=== PATIENT | female | born 1980 | race Hispanic/Latino ===

== ENCOUNTER 2020-07-05 19:17 | Inpatient (IN) | payer BC ==
[~2020-07-05] VITALS: Ht 152.4 cm; Wt 83.5 kg
[~2020-07-05 19:17] MED LIST: ETOMIDATE 2 MG/ML 10 ML INJ IV ONE; MIDAZOLAM HCL 2 MG/2 ML VIAL ONE; SUCCINYLCHOLINE CHLORIDE 20 MG/ML 10ML VIAL ONE; VECURONIUM BROMIDE FOR INJ 20 MG VIAL ONE; WATER STERILE 10 ML VIAL ONE
[2020-07-05] MEDS ORDERED: DEXAMETHASONE SOD PHOS 10 MG/1 ML VIAL IV ONE (19:30)
[2020-07-05 19:47] LABS: BASOPHILS % 0.1 % (0.0-1.0); HEMATOCRIT 33.1 % (34.2-44.1); HEMOGLOBIN 11.3 g/dL (12.0-16.0); LYMPHOCYTES # (AUTO) 0.5 (1.0-3.2); LYMPHOCYTES % 6.1 % (18.0-39.1); MEAN CORPUSCULAR HEMOGLOBIN 30.1 pg (28-32); MEAN CORPUSCULAR HGB CONC 34.1 g/dL (31-35); MEAN CORPUSCULAR VOLUME 88.3 fL (81-99); MONOCYTES # (AUTO) 0.2 (0.2-0.8); NEUTROPHILS % 90.2 % (38.7-80.0); PLATELET COUNT 295 x10e3/uL (140-360); RED BLOOD COUNT 3.75 x10e6/uL (3.6-5.1); RED CELL DISTRIBUTION WIDTH 11.9 % (11.7-14.4)
[2020-07-05 20:06] LABS: ALANINE AMINOTRANSFERASE 59 IU/L (0-55); ALBUMIN 2.2 g/dL (3.5-5.0); ALBUMIN/GLOBULIN RATIO 0.8 (0.8-2.0); ALKALINE PHOSPHATASE 76 IU/L (40-150); ANION GAP 14.9 mmol/L (8-16); BLOOD UREA NITROGEN 9 mg/dL (7-26); BUN/CREATININE RATIO 17 (6-25); CARBON DIOXIDE 21 mmol/L (22-29); CHLORIDE 108 mmol/L (98-107); CREATININE, SERUM 0.52 mg/dL (0.57-1.11); EST GLOMERULAR FILTRATION RATE > 60 ML/MIN (60-); GLUCOSE 160 mg/dL (74-118); SODIUM 141 mmol/L (136-145)
[2020-07-05 20:09] LABS: CALCIUM 6.7 mg/dL (8.4-10.2); POTASSIUM 2.9 mmol/L (3.5-5.1)
[2020-07-05] MEDS ORDERED: SODIUM CHLORIDE 0.9% 50ML 50 ML ONE (20:24)
[2020-07-05] MEDS ORDERED: IOPAMIDOL 370 MG/ML 200 ML INFUS..BTL INJ ONE (20:24)
[2020-07-05] MEDS ORDERED: CALCIUM GLUCONATE 10% INJ 4.65 MEQ in SODIUM CHLORIDE 0.9% 50ML 50 ML IV ONE (20:30)
[2020-07-05] MEDS ORDERED: POTASSIUM CHLORIDE 10MEQ EA PO ONE (20:30)
[2020-07-06] VITALS (13 sets, daily range): BP systolic 117–151; BP diastolic 70–94
[2020-07-06 06:40] LABS: BASOPHILS % 0.2 % (0.0-1.0); HEMATOCRIT 36.7 % (34.2-44.1); HEMOGLOBIN 12.3 g/dL (12.0-16.0); LYMPHOCYTES # (AUTO) 0.6 (1.0-3.2); LYMPHOCYTES % 6.2 % (18.0-39.1); MEAN CORPUSCULAR HGB CONC 33.5 g/dL (31-35); MEAN CORPUSCULAR VOLUME 89.5 fL (81-99); MONOCYTES # (AUTO) 0.2 (0.2-0.8); MONOCYTES % 1.8 % (4.4-11.3); NEUTROPHILS # (AUTO) 8.8 (2.1-6.9); NEUTROPHILS % 90.1 % (38.7-80.0); PLATELET COUNT 338 x10e3/uL (140-360)
[2020-07-06 06:55] LABS: ANION GAP 17.8 mmol/L (8-16); BLOOD UREA NITROGEN 12 mg/dL (7-26); BUN/CREATININE RATIO 21 (6-25); CALCIUM 8.1 mg/dL (8.4-10.2); CARBON DIOXIDE 23 mmol/L (22-29); CHLORIDE 104 mmol/L (98-107); CREATININE, SERUM 0.57 mg/dL (0.57-1.11); EST GLOMERULAR FILTRATION RATE > 60 ML/MIN (60-); GLUCOSE 131 mg/dL (74-118); POTASSIUM 3.8 mmol/L (3.5-5.1); SODIUM 141 mmol/L (136-145)
[2020-07-06] MEDS: ACETAMINOPHEN 325 MG TAB PO PRN (08:00)
[2020-07-06] MEDS: POTASSIUM CHLORIDE 20 MEQ TAB CR PO SCH (08:01)
[2020-07-06] MEDS ORDERED: BROMPHENIR-PSE118 ML PO (09:27)
[2020-07-06] MEDS ORDERED: PREDNISONE20 MG PO (09:27)
[2020-07-06] MEDS ORDERED: LOSARTAN POTAS100 MG PO (09:27)
[2020-07-06] MEDS ORDERED: AMLODIPINE BESYL5 MG PO (09:27)
[2020-07-06] MEDS ORDERED: LEVOTHYROXINE50 MCG PO (09:27)
[2020-07-06] MEDS ORDERED: CEFTRIAXONE SOD 1 GM 50 ML IV SCH (11:45)
[2020-07-06] MEDS ORDERED: ALBUTEROL SULFATE HFA 8GM INHALATION AEROSOL INH PRN (11:45)
[2020-07-06] MEDS ORDERED: SODIUM CHLORIDE 0.9% 250ML 250 ML ONE (13:22)
[2020-07-06] MEDS: CEFTRIAXONE SOD 1 GM in SODIUM CHLORIDE 0.9% 50ML 50 ML IV SCH (13:36)
[2020-07-06] MEDS: AZITHROMYCIN 500MG/NS 250 ML 250 ML IV SCH (14:19)
[2020-07-06] MEDS ORDERED: DEXMEDETOMIDINE 200MCG/NS 50ML 50 ML IV ONE (20:02)
[2020-07-06] MEDS: DEXMEDETOMIDINE HCL 200 MCG in SODIUM CHLORIDE 0.9% 50ML 48 ML IV SCH (20:06)
[2020-07-06] MEDS: ENOXAPARIN SOD INJ 40 MG/0.4 ML SYR SC SCH (20:34)
[2020-07-07] VITALS (25 sets, daily range): BP systolic 105–137; BP diastolic 50–85
[2020-07-07] MEDS: DEXMEDETOMIDINE HCL 200 MCG in SODIUM CHLORIDE 0.9% 50ML 48 ML IV SCH ×4 (02:24→21:55)
[2020-07-07] MEDS ORDERED: DEXMEDETOMIDINE 200MCG/NS 50ML 50 ML IV ONE (02:25)
[2020-07-07] MEDS: ONDANSETRON HCL INJ 2MG/ML 2ML 2 MG/ML VIAL IV PRN ×3 (03:46→21:54)
[2020-07-07 06:15] LABS: BASOPHILS % 0.3 % (0.0-1.0); EOSINOPHILS % 0.1 % (0.0-6.0); HEMATOCRIT 34.7 % (34.2-44.1); HEMOGLOBIN 11.6 g/dL (12.0-16.0); LYMPHOCYTES # (AUTO) 0.8 (1.0-3.2); LYMPHOCYTES % 7.9 % (18.0-39.1); MEAN CORPUSCULAR HEMOGLOBIN 30.1 pg (28-32); MEAN CORPUSCULAR HGB CONC 33.4 g/dL (31-35); MEAN CORPUSCULAR VOLUME 89.9 fL (81-99); MONOCYTES # (AUTO) 0.2 (0.2-0.8); MONOCYTES % 2.4 % (4.4-11.3); NEUTROPHILS # (AUTO) 8.8 (2.1-6.9); NEUTROPHILS % 87.3 % (38.7-80.0); PLATELET COUNT 351 x10e3/uL (140-360); RED BLOOD COUNT 3.86 x10e6/uL (3.6-5.1); RED CELL DISTRIBUTION WIDTH 11.9 % (11.7-14.4)
[2020-07-07 06:49] LABS: ALANINE AMINOTRANSFERASE 50 IU/L (0-55); ALBUMIN 2.2 g/dL (3.5-5.0); ALBUMIN/GLOBULIN RATIO 0.5 (0.8-2.0); ALKALINE PHOSPHATASE 91 IU/L (40-150); ANION GAP 11.8 mmol/L (8-16); BLOOD UREA NITROGEN 13 mg/dL (7-26); BUN/CREATININE RATIO 25 (6-25); CARBON DIOXIDE 25 mmol/L (22-29); CHLORIDE 102 mmol/L (98-107); CREATININE, SERUM 0.52 mg/dL (0.57-1.11); EST GLOMERULAR FILTRATION RATE > 60 ML/MIN (60-); GLUCOSE 111 mg/dL (74-118); POTASSIUM 3.8 mmol/L (3.5-5.1); SODIUM 135 mmol/L (136-145)
[2020-07-07] MEDS: DEXAMETHASONE SOD PHOS INJ 4 MG/ML VIAL IV SCH (08:32)
[2020-07-07] MEDS: ACETAMINOPHEN 325 MG TAB PO PRN ×2 (09:08→21:54)
[2020-07-07] MEDS: LEVOTHYROXINE SODIUM 50 MCG TAB PO SCH (09:30)
[2020-07-07] MEDS: POTASSIUM CHLORIDE 20 MEQ TAB CR PO SCH (09:59)
[2020-07-07] MEDS: AMLODIPINE BESYLATE 5 MG TAB PO SCH (09:59)
[2020-07-07] MEDS: ASCORBIC ACID 500 MG TAB PO SCH (09:59)
[2020-07-07] MEDS: ZINC SULFATE 220 MG CAP PO SCH (09:59)
[2020-07-07] MEDS: CEFTRIAXONE SOD 1 GM in SODIUM CHLORIDE 0.9% 50ML 50 ML IV SCH (13:15)
[2020-07-07] MEDS: AZITHROMYCIN 500MG/NS 250 ML 250 ML IV SCH (13:15)
[2020-07-07] MEDS: ENOXAPARIN SOD INJ 40 MG/0.4 ML SYR SC SCH (17:30)
[2020-07-07] MEDS: PIPERACILLIN/TAZOBAC 3.375 GM in SODIUM CHLORIDE 0.9% 50ML 50 ML IV SCH (22:18)
[2020-07-08] VITALS (24 sets, daily range): BP systolic 105–144; BP diastolic 58–88
[2020-07-08] MEDS: DEXMEDETOMIDINE HCL 200 MCG in SODIUM CHLORIDE 0.9% 50ML 48 ML IV SCH ×5 (03:33→21:25)
[2020-07-08 06:03] LABS: BASOPHILS % 0.4 % (0.0-1.0); EOSINOPHILS # (AUTO) 0.1 (0.0-0.4); EOSINOPHILS % 0.6 % (0.0-6.0); HEMATOCRIT 34.9 % (34.2-44.1); HEMOGLOBIN 11.8 g/dL (12.0-16.0); LYMPHOCYTES # (AUTO) 0.8 (1.0-3.2); LYMPHOCYTES % 7.9 % (18.0-39.1); MEAN CORPUSCULAR HEMOGLOBIN 29.9 pg (28-32); MEAN CORPUSCULAR HGB CONC 33.8 g/dL (31-35); MEAN CORPUSCULAR VOLUME 88.6 fL (81-99); MONOCYTES # (AUTO) 0.2 (0.2-0.8); MONOCYTES % 2.3 % (4.4-11.3); NEUTROPHILS # (AUTO) 8.8 (2.1-6.9); NEUTROPHILS % 86.5 % (38.7-80.0); PLATELET COUNT 326 x10e3/uL (140-360); RED BLOOD COUNT 3.94 x10e6/uL (3.6-5.1); RED CELL DISTRIBUTION WIDTH 11.8 % (11.7-14.4)
[2020-07-08] MEDS: PIPERACILLIN/TAZOBAC 3.375 GM in SODIUM CHLORIDE 0.9% 50ML 50 ML IV SCH ×3 (06:11→21:24)
[2020-07-08] MEDS: ONDANSETRON HCL INJ 2MG/ML 2ML 2 MG/ML VIAL IV PRN (06:18)
[2020-07-08] MEDS: ACETAMINOPHEN 325 MG TAB PO PRN ×2 (06:53→15:18)
[2020-07-08 07:25] LABS: ALANINE AMINOTRANSFERASE 49 IU/L (0-55); ALBUMIN 2.1 g/dL (3.5-5.0); ALBUMIN/GLOBULIN RATIO 0.5 (0.8-2.0); ALKALINE PHOSPHATASE 94 IU/L (40-150); ANION GAP 15.3 mmol/L (8-16); BLOOD UREA NITROGEN 18 mg/dL (7-26); BUN/CREATININE RATIO 32 (6-25); CALCIUM 7.9 mg/dL (8.4-10.2); CARBON DIOXIDE 23 mmol/L (22-29); CHLORIDE 104 mmol/L (98-107); CREATININE, SERUM 0.56 mg/dL (0.57-1.11); EST GLOMERULAR FILTRATION RATE > 60 ML/MIN (60-); GLUCOSE 108 mg/dL (74-118); POTASSIUM 4.3 mmol/L (3.5-5.1); SODIUM 138 mmol/L (136-145)
[2020-07-08 07:39] LABS: ALBUMIN 2.1 g/dL (3.5-5.0); BILIRUBIN,DIRECT 0.2 mg/dL (0.0-0.5)
[2020-07-08] MEDS: AMLODIPINE BESYLATE 5 MG TAB PO SCH (08:58)
[2020-07-08] MEDS: LEVOTHYROXINE SODIUM 50 MCG TAB PO SCH (08:58)
[2020-07-08] MEDS: DEXAMETHASONE SOD PHOS INJ 4 MG/ML VIAL IV SCH (08:58)
[2020-07-08] MEDS: ZINC SULFATE 220 MG CAP PO SCH (08:58)
[2020-07-08] MEDS: ASCORBIC ACID 500 MG TAB PO SCH (08:58)
[2020-07-08] MEDS: POTASSIUM CHLORIDE 20 MEQ TAB CR PO SCH (08:58)
[2020-07-08] MEDS ORDERED: IBUPROFEN 400 MG TAB PO PRN (16:30)
[2020-07-08] MEDS ORDERED: GUAIFENESIN/CODEINE 10 ML CUP PO PRN (16:30)
[2020-07-08] MEDS: ENOXAPARIN SOD INJ 40 MG/0.4 ML SYR SC SCH (18:31)
[2020-07-08] MEDS: LORAZEPAM INJ 2 MG/ML VIAL IV PRN (21:00)
[2020-07-09] VITALS (25 sets, daily range): BP systolic 112–157; BP diastolic 55–86
[2020-07-09] MEDS: LORAZEPAM INJ 2 MG/ML VIAL IV PRN (02:30)
[2020-07-09] MEDS: ACETAMINOPHEN 325 MG TAB PO PRN (03:40)
[2020-07-09] MEDS: PIPERACILLIN/TAZOBAC 3.375 GM in SODIUM CHLORIDE 0.9% 50ML 50 ML IV SCH ×3 (05:33→22:15)
[2020-07-09] MEDS: ONDANSETRON HCL INJ 2MG/ML 2ML 2 MG/ML VIAL IV PRN ×2 (07:27→23:05)
[2020-07-09] MEDS ORDERED: ACETAMINOPHEN 1000 MG/100 ML IV NR (07:30)
[2020-07-09 08:10] LABS: BASOPHILS % 0.1 % (0.0-1.0); EOSINOPHILS % 0.3 % (0.0-6.0); HEMATOCRIT 31.7 % (34.2-44.1); HEMOGLOBIN 10.7 g/dL (12.0-16.0); LYMPHOCYTES # (AUTO) 0.6 (1.0-3.2); LYMPHOCYTES % 3.8 % (18.0-39.1); MEAN CORPUSCULAR HEMOGLOBIN 29.3 pg (28-32); MEAN CORPUSCULAR HGB CONC 33.8 g/dL (31-35); MEAN CORPUSCULAR VOLUME 86.8 fL (81-99); MONOCYTES # (AUTO) 0.3 (0.2-0.8); MONOCYTES % 2.2 % (4.4-11.3); NEUTROPHILS # (AUTO) 13.7 (2.1-6.9); NEUTROPHILS % 92.3 % (38.7-80.0); PLATELET COUNT 229 x10e3/uL (140-360); RED BLOOD COUNT 3.65 x10e6/uL (3.6-5.1); RED CELL DISTRIBUTION WIDTH 11.8 % (11.7-14.4)
[2020-07-09 08:27] LABS: ALANINE AMINOTRANSFERASE 34 IU/L (0-55); ALBUMIN 1.9 g/dL (3.5-5.0); ALBUMIN/GLOBULIN RATIO 0.5 (0.8-2.0); ALKALINE PHOSPHATASE 96 IU/L (40-150); ANION GAP 16.8 mmol/L (8-16); BLOOD UREA NITROGEN 17 mg/dL (7-26); BUN/CREATININE RATIO 31 (6-25); CALCIUM 7.4 mg/dL (8.4-10.2); CARBON DIOXIDE 23 mmol/L (22-29); CHLORIDE 103 mmol/L (98-107); CREATININE, SERUM 0.55 mg/dL (0.57-1.11); EST GLOMERULAR FILTRATION RATE > 60 ML/MIN (60-); GLUCOSE 133 mg/dL (74-118); POTASSIUM 3.8 mmol/L (3.5-5.1); SODIUM 139 mmol/L (136-145)
[2020-07-09] MEDS: ASCORBIC ACID 500 MG TAB PO SCH (08:59)
[2020-07-09] MEDS: LEVOTHYROXINE SODIUM 50 MCG TAB PO SCH (08:59)
[2020-07-09] MEDS: POTASSIUM CHLORIDE 20 MEQ TAB CR PO SCH (08:59)
[2020-07-09] MEDS: AMLODIPINE BESYLATE 5 MG TAB PO SCH (08:59)
[2020-07-09] MEDS: ZINC SULFATE 220 MG CAP PO SCH (08:59)
[2020-07-09] MEDS: ASPIRIN 81 MG CHEW TAB PO SCH (09:30)
[2020-07-09 09:41] LABS: LYMPHOCYTES % (MANUAL) 4 % (19-48); MONOCYTES % (MANUAL) 3 % (3.4-9.0); NEUTROPHILS % (MANUAL) 93 % (40-74)
[2020-07-09 09:42] LABS: PLATELET ESTIMATE ADEQUATE; PLATELET MORPHOLOGY COMMENT NORMAL; RBC MORPHOLOGY COMMENT NORMAL
[2020-07-09] MEDS: DEXMEDETOMIDINE HCL 200 MCG in SODIUM CHLORIDE 0.9% 50ML 48 ML IV SCH ×3 (09:45→16:00)
[2020-07-09] MEDS: DEXAMETHASONE SOD PHOS INJ 4 MG/ML VIAL IV SCH (09:50)
[2020-07-09] MEDS ORDERED: VANCOMYCIN 1GM/NS 250 ML 250 ML IV ONE (10:15)
[2020-07-09] MEDS ORDERED: LACTATED RINGER'S 1,000 ML INJ ONE (10:15)
[2020-07-09] MEDS: ENOXAPARIN SOD INJ 40 MG/0.4 ML SYR SC SCH (17:56)
[2020-07-09] MEDS: DEXMEDETOMIDINE HCL 200 MCG in SODIUM CHLORIDE 0.9% 50ML 48 ML IV PRN ×2 (19:36→19:37)
[2020-07-09] MEDS ORDERED: ACETAMINOPHEN 1000 MG/100 ML 100 ML IV ONE (20:36)
[2020-07-09] MEDS ORDERED: ACETAMINOPHEN 1000 MG/100 ML IV STA (20:45)
[2020-07-09] MEDS ORDERED: ALTEPLASE RECOMBINANT 2 MG/2 ML VIAL IV PRN (22:30)
[2020-07-09] MEDS ORDERED: DEXAMETHASONE SOD PHOS INJ 4 MG/ML VIAL IV PRN (23:45)
[2020-07-10] VITALS (26 sets, daily range): BP systolic 99–159; BP diastolic 53–93
[2020-07-10] MEDS: LORAZEPAM INJ 2 MG/ML VIAL IV PRN (01:05)
[2020-07-10] MEDS: DEXMEDETOMIDINE HCL 200 MCG in SODIUM CHLORIDE 0.9% 50ML 48 ML IV PRN ×4 (01:14→06:15)
[2020-07-10] MEDS ORDERED: ACETAMINOPHEN 1000 MG/100 ML 100 ML IV ONE (03:27)
[2020-07-10] MEDS ORDERED: ACETAMINOPHEN 1000 MG/100 ML IV PRN (03:30)
[2020-07-10] MEDS ORDERED: SODIUM CHLORIDE 0.9% 250ML 250 ML ONE (03:44)
[2020-07-10 05:38] LABS: BASOPHILS % 0.2 % (0.0-1.0); EOSINOPHILS # (AUTO) 0.1 (0.0-0.4); EOSINOPHILS % 0.5 % (0.0-6.0); HEMATOCRIT 29.8 % (34.2-44.1); HEMOGLOBIN 9.9 g/dL (12.0-16.0); LYMPHOCYTES # (AUTO) 0.6 (1.0-3.2); LYMPHOCYTES % 3.6 % (18.0-39.1); MEAN CORPUSCULAR HEMOGLOBIN 29.4 pg (28-32); MEAN CORPUSCULAR HGB CONC 33.2 g/dL (31-35); MEAN CORPUSCULAR VOLUME 88.4 fL (81-99); MONOCYTES # (AUTO) 0.2 (0.2-0.8); MONOCYTES % 1.2 % (4.4-11.3); NEUTROPHILS # (AUTO) 15.4 (2.1-6.9); NEUTROPHILS % 92.8 % (38.7-80.0); PLATELET COUNT 208 x10e3/uL (140-360); RED BLOOD COUNT 3.37 x10e6/uL (3.6-5.1); RED CELL DISTRIBUTION WIDTH 11.9 % (11.7-14.4)
[2020-07-10] MEDS: PIPERACILLIN/TAZOBAC 3.375 GM in SODIUM CHLORIDE 0.9% 50ML 50 ML IV SCH ×3 (05:45→22:10)
[2020-07-10 06:15] LABS: ALANINE AMINOTRANSFERASE 28 IU/L (0-55); ALBUMIN 1.8 g/dL (3.5-5.0); ALBUMIN/GLOBULIN RATIO 0.5 (0.8-2.0); ALKALINE PHOSPHATASE 126 IU/L (40-150); ANION GAP 16.6 mmol/L (8-16); BLOOD UREA NITROGEN 17 mg/dL (7-26); BUN/CREATININE RATIO 31 (6-25); CALCIUM 7.5 mg/dL (8.4-10.2); CARBON DIOXIDE 24 mmol/L (22-29); CHLORIDE 104 mmol/L (98-107); CREATININE, SERUM 0.54 mg/dL (0.57-1.11); EST GLOMERULAR FILTRATION RATE > 60 ML/MIN (60-); GLUCOSE 103 mg/dL (74-118); POTASSIUM 3.6 mmol/L (3.5-5.1); SODIUM 141 mmol/L (136-145)
[2020-07-10] MEDS ORDERED: METHYLPREDNISOLONE SOD SUCC 125 MG/2ML VIAL IV ONE (06:30)
[2020-07-10] MEDS ORDERED: FENTANYL 2000MCG/NS 250 250 ML ONE (07:13)
[2020-07-10] MEDS ORDERED: MIDAZOLAM HCL 5MG/ML 10ML VIAL 100 ML IV ONE (07:13)
[2020-07-10] MEDS: ROCURONIUM BROMIDE 1,250 MG in SODIUM CHLORIDE 0.9% 250ML 125 ML IV SCH (07:45)
[2020-07-10] MEDS: FENTANYL 2000MCG/NS 250 250 ML IV SCH ×2 (07:45→14:00)
[2020-07-10] MEDS: MIDAZOLAM HCL 5MG/ML 10ML VIAL 100 ML IV PRN ×3 (07:45→17:53)
[2020-07-10] MEDS ORDERED: ROCURONIUM BROMIDE 250 ML IV ONE (07:56)
[2020-07-10] MEDS ORDERED: SODIUM CHLORIDE 0.9% 1000ML 1,000 ML ONE (08:30)
[2020-07-10 11:42] LABS: ABG HCO3 26 mmol/L (22-26); ABG PCO2 50 mmHg (35-45); ABG PH 7.33 (7.35-7.45); ABG PO2 76 mmHg (80-105); ABG TCO2 28
[2020-07-10] MEDS: ASPIRIN 81 MG CHEW TAB PO SCH (13:00)
[2020-07-10] MEDS: LEVOTHYROXINE SODIUM 50 MCG TAB PO SCH (13:00)
[2020-07-10] MEDS: ZINC SULFATE 220 MG CAP PO SCH (13:00)
[2020-07-10] MEDS: ENOXAPARIN SOD INJ 60 MG/0.6 ML SYR SC SCH ×2 (13:00→20:06)
[2020-07-10] MEDS: POTASSIUM CHLORIDE 20 MEQ TAB CR PO SCH (13:00)
[2020-07-10] MEDS: ASCORBIC ACID 500 MG TAB PO SCH (13:00)
[2020-07-10] MEDS: DEXAMETHASONE SOD PHOS INJ 4 MG/ML VIAL IV SCH (13:00)
[2020-07-11] VITALS (30 sets, daily range): BP systolic 107–158; BP diastolic 53–81
[2020-07-11] MEDS: MIDAZOLAM HCL 5MG/ML 10ML VIAL 100 ML IV PRN ×3 (04:00→21:06)
[2020-07-11] MEDS: FENTANYL 2000MCG/NS 250 250 ML IV SCH ×2 (04:00→11:36)
[2020-07-11] MEDS: PIPERACILLIN/TAZOBAC 3.375 GM in SODIUM CHLORIDE 0.9% 50ML 50 ML IV SCH ×3 (06:05→22:47)
[2020-07-11 06:16] LABS: BASOPHILS % 0.3 % (0.0-1.0); EOSINOPHILS % 0.1 % (0.0-6.0); HEMATOCRIT 28.3 % (34.2-44.1); HEMOGLOBIN 9.4 g/dL (12.0-16.0); LYMPHOCYTES # (AUTO) 0.5 (1.0-3.2); LYMPHOCYTES % 3.7 % (18.0-39.1); MEAN CORPUSCULAR HEMOGLOBIN 30.3 pg (28-32); MEAN CORPUSCULAR HGB CONC 33.2 g/dL (31-35); MEAN CORPUSCULAR VOLUME 91.3 fL (81-99); MONOCYTES # (AUTO) 0.2 (0.2-0.8); MONOCYTES % 1.3 % (4.4-11.3); NEUTROPHILS # (AUTO) 13.5 (2.1-6.9); NEUTROPHILS % 92.4 % (38.7-80.0); PLATELET COUNT 203 x10e3/uL (140-360); RED CELL DISTRIBUTION WIDTH 12.3 % (11.7-14.4)
[2020-07-11 06:37] LABS: ALANINE AMINOTRANSFERASE 46 IU/L (0-55); ALBUMIN 1.6 g/dL (3.5-5.0); ALBUMIN/GLOBULIN RATIO 0.4 (0.8-2.0); ALKALINE PHOSPHATASE 107 IU/L (40-150); BLOOD UREA NITROGEN 17 mg/dL (7-26); BUN/CREATININE RATIO 38 (6-25); CALCIUM 7.5 mg/dL (8.4-10.2); CARBON DIOXIDE 26 mmol/L (22-29); CHLORIDE 107 mmol/L (98-107); CREATININE, SERUM 0.45 mg/dL (0.57-1.11); EST GLOMERULAR FILTRATION RATE > 60 ML/MIN (60-); GLUCOSE 128 mg/dL (74-118); SODIUM 142 mmol/L (136-145)
[2020-07-11] MEDS: ROCURONIUM BROMIDE 1,250 MG in SODIUM CHLORIDE 0.9% 250ML 125 ML IV SCH ×2 (07:00→17:41)
[2020-07-11] MEDS: ENOXAPARIN SOD INJ 60 MG/0.6 ML SYR SC SCH ×2 (09:14→21:00)
[2020-07-11] MEDS: POTASSIUM CHLORIDE 20 MEQ TAB CR PO SCH (09:14)
[2020-07-11] MEDS: ASCORBIC ACID 500 MG TAB PO SCH (09:14)
[2020-07-11] MEDS: LEVOTHYROXINE SODIUM 50 MCG TAB PO SCH (09:14)
[2020-07-11] MEDS: DEXAMETHASONE SOD PHOS INJ 4 MG/ML VIAL IV SCH (09:14)
[2020-07-11] MEDS: ASPIRIN 81 MG CHEW TAB PO SCH (09:14)
[2020-07-11] MEDS: ZINC SULFATE 220 MG CAP PO SCH (09:15)
[2020-07-11 09:17] LABS: ABG HCO3 30 mmol/L (22-26); ABG PCO2 41 mmHg (35-45); ABG PH 7.46 (7.35-7.45); ABG PO2 183 mmHg (80-105)
[2020-07-11 09:18] LABS: ABG TCO2 31
[2020-07-11 14:02] LABS: LYMPHOCYTES % (MANUAL) 2 % (19-48); MONOCYTES % (MANUAL) 2 % (3.4-9.0); MYELOCYTES % (MANUAL) 1 % (0-0); NEUTROPHILS % (MANUAL) 95 % (40-74); PLATELET ESTIMATE ADEQUATE; PLATELET MORPHOLOGY COMMENT NORMAL; RBC MORPHOLOGY COMMENT NORMAL
[2020-07-11 15:16] LABS: ABG HCO3 28 mmol/L (22-26); ABG PCO2 40 mmHg (35-45); ABG PH 7.45 (7.35-7.45); ABG PO2 85 mmHg (80-105); ABG TCO2 29
[2020-07-11] MEDS: ACETAMINOPHEN 325 MG TAB PO PRN (21:05)
[2020-07-12] VITALS (32 sets, daily range): BP systolic 117–210; BP diastolic 58–96
[2020-07-12] MEDS: FENTANYL 2000MCG/NS 250 250 ML IV SCH ×3 (00:45→22:45)
[2020-07-12] MEDS: MIDAZOLAM HCL 5MG/ML 10ML VIAL 100 ML IV PRN ×4 (03:00→18:45)
[2020-07-12] MEDS: HYDRALAZINE HCL 20 MG/ML VIAL IV PRN ×2 (04:55→18:50)
[2020-07-12] MEDS ORDERED: HYDRALAZINE HCL 20 MG/ML VIAL ONE (05:00)
[2020-07-12 05:47] LABS: BASOPHILS % 0.1 % (0.0-1.0); EOSINOPHILS % 0.1 % (0.0-6.0); HEMATOCRIT 31.2 % (34.2-44.1); HEMOGLOBIN 9.9 g/dL (12.0-16.0); LYMPHOCYTES # (AUTO) 0.9 (1.0-3.2); MEAN CORPUSCULAR HEMOGLOBIN 29.6 pg (28-32); MEAN CORPUSCULAR HGB CONC 31.7 g/dL (31-35); MEAN CORPUSCULAR VOLUME 93.4 fL (81-99); MONOCYTES # (AUTO) 0.3 (0.2-0.8); MONOCYTES % 2.2 % (4.4-11.3); NEUTROPHILS % 87.9 % (38.7-80.0); PLATELET COUNT 259 x10e3/uL (140-360); RED BLOOD COUNT 3.34 x10e6/uL (3.6-5.1); RED CELL DISTRIBUTION WIDTH 12.4 % (11.7-14.4)
[2020-07-12] MEDS: PIPERACILLIN/TAZOBAC 3.375 GM in SODIUM CHLORIDE 0.9% 50ML 50 ML IV SCH ×3 (05:58→21:00)
[2020-07-12] MEDS: ACETAMINOPHEN 325 MG TAB PO PRN (06:00)
[2020-07-12 06:21] LABS: ALANINE AMINOTRANSFERASE 44 IU/L (0-55); ALBUMIN 1.8 g/dL (3.5-5.0); ALBUMIN/GLOBULIN RATIO 0.4 (0.8-2.0); ALKALINE PHOSPHATASE 105 IU/L (40-150); ANION GAP 15.1 mmol/L (8-16); BLOOD UREA NITROGEN 18 mg/dL (7-26); BUN/CREATININE RATIO 36 (6-25); CALCIUM 7.9 mg/dL (8.4-10.2); CARBON DIOXIDE 26 mmol/L (22-29); CHLORIDE 105 mmol/L (98-107); EST GLOMERULAR FILTRATION RATE > 60 ML/MIN (60-); GLUCOSE 135 mg/dL (74-118); POTASSIUM 4.1 mmol/L (3.5-5.1); SODIUM 142 mmol/L (136-145)
[2020-07-12] MEDS ORDERED: HEPARIN SOD/SOD CHLORIDE 1,000 ML ONE (06:23)
[2020-07-12] MEDS ORDERED: LABETALOL HCL 5 MG/ML 20ML VIAL IV STA (06:38)
[2020-07-12] MEDS ORDERED: LABETALOL HCL 20 ML ONE (06:48)
[2020-07-12 07:53] LABS: ABG HCO3 28 mmol/L (22-26); ABG PCO2 45 mmHg (35-45); ABG PH 7.41 (7.35-7.45); ABG PO2 81 mmHg (80-105); ABG TCO2 29
[2020-07-12] MEDS: ENOXAPARIN SOD INJ 60 MG/0.6 ML SYR SC SCH ×2 (08:37→20:30)
[2020-07-12] MEDS ORDERED: POTASSIUM CHLORIDE 20MEQ/15ML UDC NG SCH (09:00)
[2020-07-12] MEDS: ASPIRIN 81 MG CHEW TAB PO SCH (09:31)
[2020-07-12] MEDS: LEVOTHYROXINE SODIUM 50 MCG TAB PO SCH (09:31)
[2020-07-12] MEDS: ASCORBIC ACID 500 MG TAB PO SCH (09:31)
[2020-07-12] MEDS: ZINC SULFATE 220 MG CAP PO SCH (09:31)
[2020-07-12] MEDS: DEXAMETHASONE SOD PHOS INJ 4 MG/ML VIAL IV SCH (09:31)
[2020-07-12] MEDS ORDERED: SODIUM CHLORIDE 0.9% 250ML 250 ML ONE ×2 (14:36→14:37)
[2020-07-12 16:47] LABS: ABG HCO3 31 mmol/L (22-26); ABG PCO2 51 mmHg (35-45); ABG PH 7.39 (7.35-7.45); ABG PO2 72 mmHg (80-105); ABG TCO2 32
[2020-07-12] MEDS ORDERED: PROPOFOL IV EMULSION 10MG/ML 100 ML ONE (20:27)
[2020-07-12] MEDS: PROPOFOL IV EMULSION 10MG/ML 100 ML IV PRN (20:30)
[2020-07-13] VITALS (25 sets, daily range): BP systolic 117–172; BP diastolic 61–83
[2020-07-13] MEDS: MIDAZOLAM HCL 5MG/ML 10ML VIAL 100 ML IV PRN ×5 (00:15→20:33)
[2020-07-13] MEDS: PROPOFOL IV EMULSION 10MG/ML 100 ML IV PRN ×5 (03:10→23:39)
[2020-07-13] MEDS: PIPERACILLIN/TAZOBAC 3.375 GM in SODIUM CHLORIDE 0.9% 50ML 50 ML IV SCH ×3 (05:35→22:30)
[2020-07-13] MEDS: FENTANYL 2000MCG/NS 250 250 ML IV SCH ×3 (05:35→19:35)
[2020-07-13 06:33] LABS: BASOPHILS % 0.1 % (0.0-1.0); EOSINOPHILS % 0.3 % (0.0-6.0); HEMATOCRIT 26.6 % (34.2-44.1); HEMOGLOBIN 8.5 g/dL (12.0-16.0); LYMPHOCYTES # (AUTO) 0.9 (1.0-3.2); LYMPHOCYTES % 7.8 % (18.0-39.1); MEAN CORPUSCULAR HEMOGLOBIN 29.6 pg (28-32); MEAN CORPUSCULAR VOLUME 92.7 fL (81-99); MONOCYTES # (AUTO) 0.2 (0.2-0.8); MONOCYTES % 1.7 % (4.4-11.3); NEUTROPHILS # (AUTO) 9.9 (2.1-6.9); NEUTROPHILS % 85.8 % (38.7-80.0); PLATELET COUNT 262 x10e3/uL (140-360); RED BLOOD COUNT 2.87 x10e6/uL (3.6-5.1); RED CELL DISTRIBUTION WIDTH 12.4 % (11.7-14.4)
[2020-07-13 06:58] LABS: ALANINE AMINOTRANSFERASE 95 IU/L (0-55); ALBUMIN 1.7 g/dL (3.5-5.0); ALBUMIN/GLOBULIN RATIO 0.4 (0.8-2.0); ALKALINE PHOSPHATASE 103 IU/L (40-150); BLOOD UREA NITROGEN 17 mg/dL (7-26); BUN/CREATININE RATIO 35 (6-25); CALCIUM 7.7 mg/dL (8.4-10.2); CARBON DIOXIDE 28 mmol/L (22-29); CHLORIDE 102 mmol/L (98-107); CREATININE, SERUM 0.48 mg/dL (0.57-1.11); EST GLOMERULAR FILTRATION RATE > 60 ML/MIN (60-); GLUCOSE 120 mg/dL (74-118); SODIUM 138 mmol/L (136-145)
[2020-07-13] MEDS: ROCURONIUM BROMIDE 1,250 MG in SODIUM CHLORIDE 0.9% 250ML 125 ML IV SCH (07:00)
[2020-07-13] MEDS ORDERED: ROCURONIUM BROMIDE 1,250 MG in SODIUM CHLORIDE 0.9% 250ML 125 ML IV PRN (07:15)
[2020-07-13 07:20] LABS: MAGNESIUM 1.8 MG/DL (1.3-2.1); PHOSPHORUS 2.5 MG/DL (2.3-4.7)
[2020-07-13 07:53] LABS: FREE T4 (FREE THYROXINE) 0.9 ng/dL (0.8-1.8); THYROID STIMULATING HORMONE 1.522 uIU/mL (0.350-4.940)
[2020-07-13 07:54] LABS: ABG HCO3 29 mmol/L (22-26); ABG PCO2 41 mmHg (35-45); ABG PH 7.45 (7.35-7.45); ABG PO2 57 mmHg (80-105); ABG TCO2 30
[2020-07-13] MEDS: ASPIRIN 81 MG CHEW TAB PO SCH (08:38)
[2020-07-13] MEDS: KCL 20 MEQ PACKET/ ORAL SOLN NG SCH (08:38)
[2020-07-13] MEDS: LEVOTHYROXINE SODIUM 50 MCG TAB PO SCH (08:38)
[2020-07-13] MEDS: ENOXAPARIN SOD INJ 60 MG/0.6 ML SYR SC SCH ×2 (08:38→20:30)
[2020-07-13] MEDS: ZINC SULFATE 220 MG CAP PO SCH (08:38)
[2020-07-13] MEDS: ASCORBIC ACID 500 MG TAB PO SCH (08:38)
[2020-07-13] MEDS: EYE LUBRICANT OPTH OINT 3.5GM TUBE OP SCH (08:38)
[2020-07-13] MEDS: DEXAMETHASONE SOD PHOS INJ 4 MG/ML VIAL IV SCH (08:38)
[2020-07-13] MEDS: ALBUMIN 25% 25GM 100ML 0.25 GM/ML BTL IV SCH ×2 (12:24→22:30)
[2020-07-13] MEDS: FUROSEMIDE INJ 10 MG/ML 4 ML VIAL IV SCH ×2 (12:24→20:30)
[2020-07-13] MEDS ORDERED: ROCURONIUM BROMIDE 250 ML IV ONE (19:49)
[2020-07-13] MEDS: ACETAMINOPHEN 325 MG TAB PO PRN (22:34)
[2020-07-14] VITALS (24 sets, daily range): BP systolic 112–163; BP diastolic 64–84
[2020-07-14] MEDS: FENTANYL 2000MCG/NS 250 250 ML IV SCH ×3 (02:20→23:37)
[2020-07-14] MEDS: MIDAZOLAM HCL 5MG/ML 10ML VIAL 100 ML IV PRN ×3 (02:20→20:00)
[2020-07-14 04:45] LABS: BASOPHILS % 0.2 % (0.0-1.0); EOSINOPHILS # (AUTO) 0.1 (0.0-0.4); EOSINOPHILS % 0.9 % (0.0-6.0); HEMATOCRIT 25.4 % (34.2-44.1); HEMOGLOBIN 8.2 g/dL (12.0-16.0); LYMPHOCYTES % 8.2 % (18.0-39.1); MEAN CORPUSCULAR HEMOGLOBIN 29.5 pg (28-32); MEAN CORPUSCULAR HGB CONC 32.3 g/dL (31-35); MEAN CORPUSCULAR VOLUME 91.4 fL (81-99); MONOCYTES # (AUTO) 0.3 (0.2-0.8); MONOCYTES % 2.1 % (4.4-11.3); NEUTROPHILS # (AUTO) 9.8 (2.1-6.9); NEUTROPHILS % 84.5 % (38.7-80.0); PLATELET COUNT 253 x10e3/uL (140-360); RED BLOOD COUNT 2.78 x10e6/uL (3.6-5.1); RED CELL DISTRIBUTION WIDTH 12.3 % (11.7-14.4)
[2020-07-14 05:00] LABS: ALANINE AMINOTRANSFERASE 82 IU/L (0-55); ALBUMIN 2.7 g/dL (3.5-5.0); ALBUMIN/GLOBULIN RATIO 0.8 (0.8-2.0); ALKALINE PHOSPHATASE 83 IU/L (40-150); ANION GAP 15.2 mmol/L (8-16); BLOOD UREA NITROGEN 16 mg/dL (7-26); BUN/CREATININE RATIO 32 (6-25); CALCIUM 8.2 mg/dL (8.4-10.2); CARBON DIOXIDE 31 mmol/L (22-29); CHLORIDE 98 mmol/L (98-107); EST GLOMERULAR FILTRATION RATE > 60 ML/MIN (60-); GLUCOSE 126 mg/dL (74-118); POTASSIUM 3.2 mmol/L (3.5-5.1); SODIUM 141 mmol/L (136-145)
[2020-07-14] MEDS: ALBUMIN 25% 25GM 100ML 0.25 GM/ML BTL IV SCH (05:50)
[2020-07-14] MEDS: PIPERACILLIN/TAZOBAC 3.375 GM in SODIUM CHLORIDE 0.9% 50ML 50 ML IV SCH (05:50)
[2020-07-14 08:00] LABS: ABG HCO3 31 mmol/L (22-26); ABG PCO2 50 mmHg (35-45); ABG PO2 76 mmHg (80-105); ABG TCO2 33
[2020-07-14] MEDS: PROPOFOL IV EMULSION 10MG/ML 100 ML IV PRN (08:00)
[2020-07-14] MEDS: ENOXAPARIN SOD INJ 60 MG/0.6 ML SYR SC SCH ×2 (08:00→21:21)
[2020-07-14] MEDS: EYE LUBRICANT OPTH OINT 3.5GM TUBE OP SCH (09:00)
[2020-07-14] MEDS: LEVOTHYROXINE SODIUM 50 MCG TAB PO SCH (09:00)
[2020-07-14] MEDS: DEXAMETHASONE SOD PHOS INJ 4 MG/ML VIAL IV SCH (09:00)
[2020-07-14] MEDS: ASPIRIN 81 MG CHEW TAB PO SCH (09:00)
[2020-07-14] MEDS: KCL 20 MEQ PACKET/ ORAL SOLN NG SCH (09:00)
[2020-07-14] MEDS: ZINC SULFATE 220 MG CAP PO SCH (09:00)
[2020-07-14] MEDS: ASCORBIC ACID 500 MG TAB PO SCH (09:00)
[2020-07-14] MEDS ORDERED: POTASSIUM CHLORIDE 20MEQ/100ML 200 ML IV ONE (09:30)
[2020-07-14] MEDS ORDERED: LABETALOL HCL 20 ML ONE (09:38)
[2020-07-14] MEDS ORDERED: ACETAMINOPHEN 650 MG SUPP PR ONE (10:01)
[2020-07-14] MEDS ORDERED: LACTULOSE SYRUP 20 GM/30 ML UDC PO ONE (10:10)
[2020-07-14] MEDS ORDERED: LABETALOL HCL 5 MG/ML 20ML VIAL IV ONE (10:10)
[2020-07-14 15:40] LABS: ABG HCO3 29 mmol/L (22-26); ABG PCO2 49 mmHg (35-45); ABG PH 7.39 (7.35-7.45); ABG PO2 81 mmHg (80-105); ABG TCO2 31
[2020-07-14] MEDS: ACETAMINOPHEN 650 MG SUPP PR PRN (18:00)
[2020-07-15] VITALS (25 sets, daily range): BP systolic 123–222; BP diastolic 70–99
[2020-07-15] MEDS: PROPOFOL IV EMULSION 10MG/ML 100 ML IV PRN ×5 (01:11→23:00)
[2020-07-15] MEDS: HYDRALAZINE HCL 20 MG/ML VIAL IV PRN ×3 (01:45→22:50)
[2020-07-15] MEDS: MIDAZOLAM HCL 5MG/ML 10ML VIAL 100 ML IV PRN ×4 (02:46→19:30)
[2020-07-15 05:19] LABS: BASOPHILS # (AUTO) 0.1 (0.0-0.1); BASOPHILS % 0.4 % (0.0-1.0); EOSINOPHILS # (AUTO) 0.2 (0.0-0.4); EOSINOPHILS % 1.1 % (0.0-6.0); HEMATOCRIT 30.9 % (34.2-44.1); LYMPHOCYTES # (AUTO) 1.6 (1.0-3.2); LYMPHOCYTES % 7.6 % (18.0-39.1); MEAN CORPUSCULAR HGB CONC 32.4 g/dL (31-35); MEAN CORPUSCULAR VOLUME 92.8 fL (81-99); MONOCYTES # (AUTO) 0.5 (0.2-0.8); MONOCYTES % 2.5 % (4.4-11.3); NEUTROPHILS # (AUTO) 17.9 (2.1-6.9); NEUTROPHILS % 83.6 % (38.7-80.0); PLATELET COUNT 408 x10e3/uL (140-360); RED BLOOD COUNT 3.33 x10e6/uL (3.6-5.1); RED CELL DISTRIBUTION WIDTH 12.5 % (11.7-14.4)
[2020-07-15 05:41] LABS: ALANINE AMINOTRANSFERASE 119 IU/L (0-55); ALBUMIN/GLOBULIN RATIO 0.8 (0.8-2.0); ALKALINE PHOSPHATASE 95 IU/L (40-150); ANION GAP 14.5 mmol/L (8-16); BLOOD UREA NITROGEN 15 mg/dL (7-26); BUN/CREATININE RATIO 28 (6-25); CALCIUM 8.6 mg/dL (8.4-10.2); CARBON DIOXIDE 31 mmol/L (22-29); CHLORIDE 100 mmol/L (98-107); CREATININE, SERUM 0.53 mg/dL (0.57-1.11); EST GLOMERULAR FILTRATION RATE > 60 ML/MIN (60-); GLUCOSE 134 mg/dL (74-118); POTASSIUM 3.5 mmol/L (3.5-5.1); SODIUM 142 mmol/L (136-145)
[2020-07-15] MEDS: FENTANYL 2000MCG/NS 250 250 ML IV SCH ×3 (06:15→20:39)
[2020-07-15] MEDS: KCL 20 MEQ PACKET/ ORAL SOLN NG SCH (08:08)
[2020-07-15] MEDS: LEVOTHYROXINE SODIUM 50 MCG TAB PO SCH (08:08)
[2020-07-15] MEDS: EYE LUBRICANT OPTH OINT 3.5GM TUBE OP SCH (08:08)
[2020-07-15] MEDS: ASPIRIN 81 MG CHEW TAB PO SCH (08:08)
[2020-07-15] MEDS: DEXAMETHASONE SOD PHOS INJ 4 MG/ML VIAL IV SCH (08:08)
[2020-07-15] MEDS: ENOXAPARIN SOD INJ 60 MG/0.6 ML SYR SC SCH ×2 (08:08→20:38)
[2020-07-15] MEDS: ASCORBIC ACID 500 MG TAB PO SCH (08:08)
[2020-07-15] MEDS: ZINC SULFATE 220 MG CAP PO SCH (08:08)
[2020-07-15] MEDS: ACETAMINOPHEN 325 MG TAB PO PRN (08:09)
[2020-07-15 08:44] LABS: ABG PCO2 54 mmHg (35-45)
[2020-07-15 08:45] LABS: ABG HCO3 33 mmol/L (22-26); ABG PO2 52 mmHg (80-105); ABG TCO2 35
[2020-07-15] MEDS ORDERED: SODIUM CHLORIDE 0.9% 50ML 50 ML ONE (13:21)
[2020-07-15] MEDS ORDERED: IOPAMIDOL 370 MG/ML 200 ML INFUS..BTL INJ ONE (13:22)
[2020-07-15 15:55] LABS: ABG HCO3 33 mmol/L (22-26); ABG PCO2 57 mmHg (35-45); ABG PH 7.38 (7.35-7.45); ABG PO2 75 mmHg (80-105); ABG TCO2 35
[2020-07-15] MEDS: CEFEPIME HCL 1GM 1 GM in SODIUM CHLORIDE 0.9% 50ML 50 ML IV SCH ×2 (18:28→23:47)
[2020-07-15] MEDS: ROCURONIUM BROMIDE 1,250 MG in SODIUM CHLORIDE 0.9% 250ML 125 ML IV SCH (18:55)
[2020-07-16] VITALS (26 sets, daily range): BP systolic 111–199; BP diastolic 77–98
[2020-07-16] MEDS: MIDAZOLAM HCL 5MG/ML 10ML VIAL 100 ML IV PRN ×5 (00:50→20:47)
[2020-07-16] MEDS: FENTANYL 2000MCG/NS 250 250 ML IV SCH ×4 (03:10→20:20)
[2020-07-16 05:21] LABS: BASOPHILS # (AUTO) 0.1 (0.0-0.1); BASOPHILS % 0.4 % (0.0-1.0); EOSINOPHILS # (AUTO) 0.2 (0.0-0.4); EOSINOPHILS % 1.1 % (0.0-6.0); HEMATOCRIT 30.9 % (34.2-44.1); HEMOGLOBIN 9.7 g/dL (12.0-16.0); LYMPHOCYTES # (AUTO) 1.2 (1.0-3.2); LYMPHOCYTES % 7.6 % (18.0-39.1); MEAN CORPUSCULAR HEMOGLOBIN 29.1 pg (28-32); MEAN CORPUSCULAR HGB CONC 31.4 g/dL (31-35); MEAN CORPUSCULAR VOLUME 92.8 fL (81-99); MONOCYTES # (AUTO) 0.5 (0.2-0.8); MONOCYTES % 3.5 % (4.4-11.3); NEUTROPHILS # (AUTO) 12.6 (2.1-6.9); NEUTROPHILS % 82.9 % (38.7-80.0); PLATELET COUNT 400 x10e3/uL (140-360); RED BLOOD COUNT 3.33 x10e6/uL (3.6-5.1); RED CELL DISTRIBUTION WIDTH 12.7 % (11.7-14.4)
[2020-07-16] MEDS: PROPOFOL IV EMULSION 10MG/ML 100 ML IV PRN ×3 (05:39→15:41)
[2020-07-16 05:52] LABS: ALANINE AMINOTRANSFERASE 86 IU/L (0-55); ALBUMIN 2.6 g/dL (3.5-5.0); ALBUMIN/GLOBULIN RATIO 0.6 (0.8-2.0); ALKALINE PHOSPHATASE 93 IU/L (40-150); BLOOD UREA NITROGEN 15 mg/dL (7-26); BUN/CREATININE RATIO 30 (6-25); CALCIUM 8.6 mg/dL (8.4-10.2); CARBON DIOXIDE 28 mmol/L (22-29); CHLORIDE 100 mmol/L (98-107); EST GLOMERULAR FILTRATION RATE > 60 ML/MIN (60-); GLUCOSE 148 mg/dL (74-118); SODIUM 141 mmol/L (136-145)
[2020-07-16] MEDS: KCL 20 MEQ PACKET/ ORAL SOLN NG SCH (07:58)
[2020-07-16] MEDS: EYE LUBRICANT OPTH OINT 3.5GM TUBE OP SCH (07:58)
[2020-07-16] MEDS: DEXAMETHASONE SOD PHOS INJ 4 MG/ML VIAL IV SCH (07:58)
[2020-07-16] MEDS: ASPIRIN 81 MG CHEW TAB PO SCH (07:58)
[2020-07-16] MEDS: ASCORBIC ACID 500 MG TAB PO SCH (07:58)
[2020-07-16] MEDS: LEVOTHYROXINE SODIUM 50 MCG TAB PO SCH (07:58)
[2020-07-16] MEDS: ZINC SULFATE 220 MG CAP PO SCH (07:58)
[2020-07-16] MEDS: CEFEPIME HCL 1GM 1 GM in SODIUM CHLORIDE 0.9% 50ML 50 ML IV SCH ×3 (07:58→23:06)
[2020-07-16] MEDS: ENOXAPARIN SOD INJ 60 MG/0.6 ML SYR SC SCH ×2 (07:58→20:16)
[2020-07-16] MEDS: HYDRALAZINE HCL 20 MG/ML VIAL IV PRN ×2 (10:33→23:20)
[2020-07-16 10:47] LABS: ABG HCO3 26 mmol/L (22-26); ABG PCO2 41 mmHg (35-45); ABG PH 7.42 (7.35-7.45); ABG PO2 195 mmHg (80-105); ABG TCO2 27
[2020-07-16 15:38] LABS: ABG HCO3 33 mmol/L (22-26); ABG PCO2 56 mmHg (35-45); ABG PH 7.38 (7.35-7.45); ABG PO2 77 mmHg (80-105); ABG TCO2 35
[2020-07-16] MEDS: ROCURONIUM BROMIDE 1,250 MG in SODIUM CHLORIDE 0.9% 250ML 125 ML IV SCH (16:46)
[2020-07-16] MEDS: LABETALOL HCL 5 MG/ML 20ML VIAL IV PRN (20:55)
[2020-07-16] MEDS ORDERED: ENOXAPARIN SOD INJ 60 MG/0.6 ML SYR SC SCH (21:00)
[2020-07-16] MEDS ORDERED: SODIUM CHLORIDE 0.9% 250ML 250 ML ONE (23:02)
[2020-07-17] VITALS (25 sets, daily range): BP systolic 130–187; BP diastolic 71–86
[2020-07-17] MEDS: MIDAZOLAM HCL 5MG/ML 10ML VIAL 100 ML IV PRN ×4 (01:00→22:00)
[2020-07-17] MEDS: PROPOFOL IV EMULSION 10MG/ML 100 ML IV PRN ×5 (01:00→22:00)
[2020-07-17] MEDS: LABETALOL HCL 5 MG/ML 20ML VIAL IV PRN ×2 (03:06→17:09)
[2020-07-17 05:19] LABS: BASOPHILS % 0.3 % (0.0-1.0); EOSINOPHILS # (AUTO) 0.2 (0.0-0.4); EOSINOPHILS % 1.8 % (0.0-6.0); HEMATOCRIT 29.4 % (34.2-44.1); HEMOGLOBIN 9.4 g/dL (12.0-16.0); LYMPHOCYTES # (AUTO) 1.4 (1.0-3.2); LYMPHOCYTES % 12.3 % (18.0-39.1); MEAN CORPUSCULAR VOLUME 93.9 fL (81-99); MONOCYTES # (AUTO) 0.6 (0.2-0.8); MONOCYTES % 5.2 % (4.4-11.3); NEUTROPHILS # (AUTO) 8.6 (2.1-6.9); NEUTROPHILS % 74.8 % (38.7-80.0); PLATELET COUNT 420 x10e3/uL (140-360); RED BLOOD COUNT 3.13 x10e6/uL (3.6-5.1); RED CELL DISTRIBUTION WIDTH 13.1 % (11.7-14.4)
[2020-07-17 05:49] LABS: ALANINE AMINOTRANSFERASE 53 IU/L (0-55); ALBUMIN 2.3 g/dL (3.5-5.0); ALBUMIN/GLOBULIN RATIO 0.6 (0.8-2.0); ALKALINE PHOSPHATASE 70 IU/L (40-150); ANION GAP 13.1 mmol/L (8-16); BLOOD UREA NITROGEN 13 mg/dL (7-26); BUN/CREATININE RATIO 28 (6-25); CALCIUM 7.9 mg/dL (8.4-10.2); CARBON DIOXIDE 28 mmol/L (22-29); CHLORIDE 100 mmol/L (98-107); CREATININE, SERUM 0.46 mg/dL (0.57-1.11); EST GLOMERULAR FILTRATION RATE > 60 ML/MIN (60-); GLUCOSE 114 mg/dL (74-118); POTASSIUM 4.1 mmol/L (3.5-5.1); SODIUM 137 mmol/L (136-145)
[2020-07-17] MEDS: FENTANYL 2000MCG/NS 250 250 ML IV SCH ×3 (06:27→20:05)
[2020-07-17] MEDS: CEFEPIME HCL 1GM 1 GM in SODIUM CHLORIDE 0.9% 50ML 50 ML IV SCH ×2 (08:06→15:40)
[2020-07-17] MEDS: ENOXAPARIN SOD INJ 60 MG/0.6 ML SYR SC SCH ×2 (08:06→20:47)
[2020-07-17] MEDS: LEVOTHYROXINE SODIUM 50 MCG TAB PO SCH (08:07)
[2020-07-17] MEDS: ASCORBIC ACID 500 MG TAB PO SCH (08:07)
[2020-07-17] MEDS: ZINC SULFATE 220 MG CAP PO SCH (08:07)
[2020-07-17] MEDS: ASPIRIN 81 MG CHEW TAB PO SCH (08:07)
[2020-07-17] MEDS: KCL 20 MEQ PACKET/ ORAL SOLN NG SCH (08:07)
[2020-07-17] MEDS: EYE LUBRICANT OPTH OINT 3.5GM TUBE OP SCH (08:07)
[2020-07-17 08:15] LABS: ABG HCO3 37 mmol/L (22-26); ABG PCO2 27 mmHg (35-45); ABG PH 7.42 (7.35-7.45); ABG PO2 61 mmHg (80-105); ABG TCO2 38
[2020-07-17] MEDS ORDERED: ALBUMIN 25% 25GM 100ML 0.25 GM/ML BTL IV SCH (09:00)
[2020-07-17] MEDS ORDERED: FUROSEMIDE INJ 10 MG/ML 4 ML VIAL IV SCH (09:00)
[2020-07-17] MEDS ORDERED: FUROSEMIDE INJ 10 MG/ML 4 ML VIAL IV ONE (09:15)
[2020-07-17] MEDS ORDERED: VECURONIUM BROMIDE FOR INJ 20 MG VIAL IV ONE (10:00)
[2020-07-17] MEDS: ALBUMIN 25% 25GM 100ML 100 ML IV SCH ×2 (10:06→17:11)
[2020-07-17] MEDS: ACETAZOLAMIDE 250 MG TAB PO SCH ×2 (10:06→15:40)
[2020-07-17] MEDS: ROCURONIUM BROMIDE 1,250 MG in SODIUM CHLORIDE 0.9% 250ML 125 ML IV SCH (17:15)
[2020-07-18] VITALS (25 sets, daily range): BP systolic 130–182; BP diastolic 65–92
[2020-07-18] MEDS: ACETAMINOPHEN 325 MG TAB PO PRN ×3 (00:33→21:57)
[2020-07-18] MEDS: CEFEPIME HCL 1GM 1 GM in SODIUM CHLORIDE 0.9% 50ML 50 ML IV SCH ×3 (00:33→16:48)
[2020-07-18] MEDS: LABETALOL HCL 5 MG/ML 20ML VIAL IV PRN ×4 (00:34→21:56)
[2020-07-18] MEDS: ALBUMIN 25% 25GM 100ML 100 ML IV SCH (02:00)
[2020-07-18] MEDS: PROPOFOL IV EMULSION 10MG/ML 100 ML IV PRN ×5 (02:45→21:56)
[2020-07-18] MEDS: FENTANYL 2000MCG/NS 250 250 ML IV SCH ×4 (02:45→22:45)
[2020-07-18] MEDS: MIDAZOLAM HCL 5MG/ML 10ML VIAL 100 ML IV PRN ×4 (02:45→19:03)
[2020-07-18 06:20] LABS: BASOPHILS # (AUTO) 0.1 (0.0-0.1); BASOPHILS % 0.6 % (0.0-1.0); EOSINOPHILS # (AUTO) 0.3 (0.0-0.4); EOSINOPHILS % 2.4 % (0.0-6.0); HEMATOCRIT 27.8 % (34.2-44.1); HEMOGLOBIN 8.7 g/dL (12.0-16.0); LYMPHOCYTES # (AUTO) 1.4 (1.0-3.2); LYMPHOCYTES % 13.9 % (18.0-39.1); MEAN CORPUSCULAR HEMOGLOBIN 30.5 pg (28-32); MEAN CORPUSCULAR HGB CONC 31.3 g/dL (31-35); MEAN CORPUSCULAR VOLUME 97.5 fL (81-99); MONOCYTES # (AUTO) 0.7 (0.2-0.8); MONOCYTES % 6.4 % (4.4-11.3); NEUTROPHILS # (AUTO) 7.3 (2.1-6.9); NEUTROPHILS % 70.3 % (38.7-80.0); PLATELET COUNT 413 x10e3/uL (140-360); RED BLOOD COUNT 2.85 x10e6/uL (3.6-5.1); RED CELL DISTRIBUTION WIDTH 13.3 % (11.7-14.4)
[2020-07-18 06:48] LABS: ALANINE AMINOTRANSFERASE 33 IU/L (0-55); ALBUMIN 3.7 g/dL (3.5-5.0); ALBUMIN/GLOBULIN RATIO 1.2 (0.8-2.0); ALKALINE PHOSPHATASE 62 IU/L (40-150); ANION GAP 14.6 mmol/L (8-16); BLOOD UREA NITROGEN 12 mg/dL (7-26); BUN/CREATININE RATIO 22 (6-25); CALCIUM 8.4 mg/dL (8.4-10.2); CARBON DIOXIDE 28 mmol/L (22-29); CHLORIDE 103 mmol/L (98-107); CREATININE, SERUM 0.54 mg/dL (0.57-1.11); EST GLOMERULAR FILTRATION RATE > 60 ML/MIN (60-); GLUCOSE 140 mg/dL (74-118); POTASSIUM 3.6 mmol/L (3.5-5.1); SODIUM 142 mmol/L (136-145)
[2020-07-18 07:00] LABS: ABG HCO3 30 mmol/L (22-26); ABG PCO2 56 mmHg (35-45); ABG PH 7.34 (7.35-7.45); ABG PO2 72 mmHg (80-105); ABG TCO2 32
[2020-07-18] MEDS: ACETAZOLAMIDE 250 MG TAB PO SCH (08:42)
[2020-07-18] MEDS: KCL 20 MEQ PACKET/ ORAL SOLN NG SCH (08:42)
[2020-07-18] MEDS: ASCORBIC ACID 500 MG TAB PO SCH (08:42)
[2020-07-18] MEDS: LEVOTHYROXINE SODIUM 50 MCG TAB PO SCH (08:42)
[2020-07-18] MEDS: EYE LUBRICANT OPTH OINT 3.5GM TUBE OP SCH (08:42)
[2020-07-18] MEDS: ASPIRIN 81 MG CHEW TAB PO SCH (08:42)
[2020-07-18] MEDS: ENOXAPARIN SOD INJ 60 MG/0.6 ML SYR SC SCH ×2 (08:42→19:51)
[2020-07-18] MEDS: ZINC SULFATE 220 MG CAP PO SCH (08:42)
[2020-07-18 09:13] LABS: BAND NEUTROPHILS % (MANUAL) 1 %; LYMPHOCYTES % (MANUAL) 15 % (19-48); MONOCYTES % (MANUAL) 2 % (3.4-9.0); MYELOCYTES % (MANUAL) 3 % (0-0); NEUTROPHILS % (MANUAL) 79 % (40-74); PLATELET ESTIMATE SLIGHTLY INCREASED; PLATELET MORPHOLOGY COMMENT NORMAL; RBC MORPHOLOGY COMMENT NORMAL
[2020-07-18] MEDS ORDERED: FENTANYL 2000MCG/NS 250 250 ML ONE (09:23)
[2020-07-18] MEDS: HYDRALAZINE HCL 20 MG/ML VIAL IV PRN (13:28)
[2020-07-18] MEDS ORDERED: ACETAMINOPHEN 1000 MG/100 ML IV ONE (13:42)
[2020-07-18 15:05] LABS: ABG HCO3 30 mmol/L (22-26); ABG PCO2 67 mmHg (35-45); ABG PH 7.25 (7.35-7.45); ABG PO2 63 mmHg (80-105); ABG TCO2 32
[2020-07-18] MEDS: ROCURONIUM BROMIDE 1,250 MG in SODIUM CHLORIDE 0.9% 250ML 125 ML IV SCH (17:06)
[2020-07-18 17:25] LABS: ABG HCO3 29 mmol/L (22-26); ABG PCO2 66 mmHg (35-45); ABG PH 7.25 (7.35-7.45); ABG PO2 79 mmHg (80-105); ABG TCO2 31
[2020-07-18] MEDS ORDERED: FUROSEMIDE INJ 10 MG/ML 4 ML VIAL IV ONE (17:30)
[2020-07-18] MEDS ORDERED: FUROSEMIDE INJ 10 MG/ML 4 ML VIAL ONE (17:45)
[2020-07-19] VITALS (24 sets, daily range): BP systolic 128–164; BP diastolic 60–77
[2020-07-19] MEDS: CEFEPIME HCL 1GM 1 GM in SODIUM CHLORIDE 0.9% 50ML 50 ML IV SCH ×3 (00:26→16:00)
[2020-07-19] MEDS: MIDAZOLAM HCL 5MG/ML 10ML VIAL 100 ML IV PRN ×5 (00:27→23:08)
[2020-07-19] MEDS: LABETALOL HCL 5 MG/ML 20ML VIAL IV PRN ×3 (02:03→17:14)
[2020-07-19] MEDS: ACETAMINOPHEN 325 MG TAB PO PRN ×3 (02:22→14:18)
[2020-07-19] MEDS: ROCURONIUM BROMIDE 1,250 MG in SODIUM CHLORIDE 0.9% 250ML 125 ML IV SCH (02:22)
[2020-07-19] MEDS: PROPOFOL IV EMULSION 10MG/ML 100 ML IV PRN ×3 (05:21→18:06)
[2020-07-19 05:58] LABS: BASOPHILS # (AUTO) 0.1 (0.0-0.1); BASOPHILS % 0.4 % (0.0-1.0); EOSINOPHILS # (AUTO) 0.1 (0.0-0.4); HEMATOCRIT 27.6 % (34.2-44.1); HEMOGLOBIN 8.6 g/dL (12.0-16.0); LYMPHOCYTES # (AUTO) 1.4 (1.0-3.2); LYMPHOCYTES % 11.2 % (18.0-39.1); MEAN CORPUSCULAR HEMOGLOBIN 29.8 pg (28-32); MEAN CORPUSCULAR HGB CONC 31.2 g/dL (31-35); MEAN CORPUSCULAR VOLUME 95.5 fL (81-99); MONOCYTES # (AUTO) 0.8 (0.2-0.8); MONOCYTES % 6.4 % (4.4-11.3); NEUTROPHILS # (AUTO) 9.1 (2.1-6.9); NEUTROPHILS % 74.8 % (38.7-80.0); PLATELET COUNT 441 x10e3/uL (140-360); RED BLOOD COUNT 2.89 x10e6/uL (3.6-5.1); RED CELL DISTRIBUTION WIDTH 13.4 % (11.7-14.4)
[2020-07-19] MEDS: FENTANYL 2000MCG/NS 250 250 ML IV SCH ×3 (06:06→18:48)
[2020-07-19 06:23] LABS: ALANINE AMINOTRANSFERASE 40 IU/L (0-55); ALBUMIN/GLOBULIN RATIO 0.9 (0.8-2.0); ALKALINE PHOSPHATASE 74 IU/L (40-150); ANION GAP 12.5 mmol/L (8-16); BLOOD UREA NITROGEN 16 mg/dL (7-26); BUN/CREATININE RATIO 31 (6-25); CALCIUM 8.7 mg/dL (8.4-10.2); CARBON DIOXIDE 30 mmol/L (22-29); CHLORIDE 105 mmol/L (98-107); CREATININE, SERUM 0.52 mg/dL (0.57-1.11); EST GLOMERULAR FILTRATION RATE > 60 ML/MIN (60-); GLUCOSE 131 mg/dL (74-118); POTASSIUM 3.5 mmol/L (3.5-5.1); SODIUM 144 mmol/L (136-145)
[2020-07-19 07:36] LABS: ABG HCO3 31 mmol/L (22-26); ABG PCO2 60 mmHg (35-45); ABG PH 7.33 (7.35-7.45); ABG PO2 71 mmHg (80-105); ABG TCO2 33
[2020-07-19] MEDS: KCL 20 MEQ PACKET/ ORAL SOLN NG SCH (08:28)
[2020-07-19] MEDS: ENOXAPARIN SOD INJ 60 MG/0.6 ML SYR SC SCH ×2 (08:28→20:36)
[2020-07-19] MEDS: EYE LUBRICANT OPTH OINT 3.5GM TUBE OP SCH (08:28)
[2020-07-19] MEDS: ASPIRIN 81 MG CHEW TAB PO SCH (08:28)
[2020-07-19] MEDS: LEVOTHYROXINE SODIUM 50 MCG TAB PO SCH (08:29)
[2020-07-19] MEDS: ASCORBIC ACID 500 MG TAB PO SCH (08:29)
[2020-07-19] MEDS: ZINC SULFATE 220 MG CAP PO SCH (08:29)
[2020-07-19] MEDS: METOPROLOL TARTRATE 25 MG TAB PO SCH (08:29)
[2020-07-19] MEDS: DOCUSATE SODIUM LIQD 100 MG/10 ML UDC NG SCH (10:55)
[2020-07-19] MEDS ORDERED: MAGNESIUM HYDROXIDE 30 ML UDC PO ONE (11:30)
[2020-07-19 15:32] LABS: ABG HCO3 36 mmol/L (22-26); ABG PCO2 73 mmHg (35-45); ABG PO2 62 mmHg (80-105); ABG TCO2 38
[2020-07-19] MEDS: IBUPROFEN 100 MG/5 ML SUSP PO PRN (18:06)
[2020-07-20] VITALS (26 sets, daily range): BP systolic 115–173; BP diastolic 64–86
[2020-07-20] MEDS: PROPOFOL IV EMULSION 10MG/ML 100 ML IV PRN ×3 (00:57→13:57)
[2020-07-20] MEDS: IBUPROFEN 100 MG/5 ML SUSP PO PRN ×2 (02:57→15:03)
[2020-07-20] MEDS: FENTANYL 2000MCG/NS 250 250 ML IV SCH ×4 (03:08→23:48)
[2020-07-20] MEDS: MIDAZOLAM HCL 5MG/ML 10ML VIAL 100 ML IV PRN ×4 (03:51→18:45)
[2020-07-20 05:43] LABS: BASOPHILS # (AUTO) 0.1 (0.0-0.1); BASOPHILS % 0.6 % (0.0-1.0); EOSINOPHILS # (AUTO) 0.3 (0.0-0.4); EOSINOPHILS % 2.5 % (0.0-6.0); HEMATOCRIT 27.5 % (34.2-44.1); HEMOGLOBIN 8.3 g/dL (12.0-16.0); LYMPHOCYTES # (AUTO) 1.4 (1.0-3.2); LYMPHOCYTES % 11.1 % (18.0-39.1); MEAN CORPUSCULAR HEMOGLOBIN 29.5 pg (28-32); MEAN CORPUSCULAR HGB CONC 30.2 g/dL (31-35); MEAN CORPUSCULAR VOLUME 97.9 fL (81-99); MONOCYTES # (AUTO) 0.8 (0.2-0.8); MONOCYTES % 6.7 % (4.4-11.3); NEUTROPHILS % 73.4 % (38.7-80.0); PLATELET COUNT 461 x10e3/uL (140-360); RED BLOOD COUNT 2.81 x10e6/uL (3.6-5.1); RED CELL DISTRIBUTION WIDTH 13.6 % (11.7-14.4)
[2020-07-20] MEDS: LABETALOL HCL 5 MG/ML 20ML VIAL IV PRN (05:52)
[2020-07-20 06:09] LABS: ALANINE AMINOTRANSFERASE 37 IU/L (0-55); ALBUMIN 2.9 g/dL (3.5-5.0); ALBUMIN/GLOBULIN RATIO 0.8 (0.8-2.0); ALKALINE PHOSPHATASE 71 IU/L (40-150); ANION GAP 12.8 mmol/L (8-16); BLOOD UREA NITROGEN 16 mg/dL (7-26); BUN/CREATININE RATIO 34 (6-25); CALCIUM 8.5 mg/dL (8.4-10.2); CARBON DIOXIDE 36 mmol/L (22-29); CHLORIDE 103 mmol/L (98-107); CREATININE, SERUM 0.47 mg/dL (0.57-1.11); EST GLOMERULAR FILTRATION RATE > 60 ML/MIN (60-); GLUCOSE 147 mg/dL (74-118); POTASSIUM 3.8 mmol/L (3.5-5.1); SODIUM 148 mmol/L (136-145)
[2020-07-20 06:33] LABS: ALBUMIN 2.8 g/dL (3.5-5.0); BILIRUBIN,DIRECT 0.1 mg/dL (0.0-0.5)
[2020-07-20 07:00] LABS: ABG HCO3 41 mmol/L (22-26); ABG PCO2 78 mmHg (35-45); ABG PH 7.33 (7.35-7.45); ABG PO2 88 mmHg (80-105); ABG TCO2 43
[2020-07-20] MEDS: ASPIRIN 81 MG CHEW TAB PO SCH (08:38)
[2020-07-20] MEDS: METOPROLOL TARTRATE 25 MG TAB PO SCH (08:38)
[2020-07-20] MEDS: LEVOTHYROXINE SODIUM 50 MCG TAB PO SCH (08:38)
[2020-07-20] MEDS: ZINC SULFATE 220 MG CAP PO SCH (08:38)
[2020-07-20] MEDS: ASCORBIC ACID 500 MG TAB PO SCH (08:38)
[2020-07-20] MEDS: KCL 20 MEQ PACKET/ ORAL SOLN NG SCH (08:38)
[2020-07-20] MEDS: EYE LUBRICANT OPTH OINT 3.5GM TUBE OP SCH (08:38)
[2020-07-20] MEDS: DOCUSATE SODIUM LIQD 100 MG/10 ML UDC NG SCH (08:38)
[2020-07-20] MEDS: ENOXAPARIN SOD INJ 60 MG/0.6 ML SYR SC SCH (08:38)
[2020-07-20] MEDS: ACETAZOLAMIDE 250 MG TAB PO SCH ×2 (10:19→21:08)
[2020-07-20] MEDS ORDERED: CITRATE OF MAGNESIA 300ML BOTTLE PO ONE (10:30)
[2020-07-20] MEDS: HYDRALAZINE HCL 20 MG/ML VIAL IV PRN (10:39)
[2020-07-20 15:46] LABS: ABG PH 7.31 (7.35-7.45)
[2020-07-20 15:47] LABS: ABG HCO3 37 mmol/L (22-26); ABG PCO2 74 mmHg (35-45); ABG PO2 84 mmHg (80-105); ABG TCO2 39
[2020-07-20] MEDS: ROCURONIUM BROMIDE 1,250 MG in SODIUM CHLORIDE 0.9% 250ML 125 ML IV SCH ×2 (16:55→18:58)
[2020-07-20 21:18] LABS: INR 0.91; PROTHROMBIN TIME 12.8 seconds (11.9-14.5)
[2020-07-21] VITALS (23 sets, daily range): BP systolic 126–155; BP diastolic 60–80
[2020-07-21] MEDS: MIDAZOLAM HCL 5MG/ML 10ML VIAL 100 ML IV PRN ×5 (01:08→21:25)
[2020-07-21] MEDS: PROPOFOL IV EMULSION 10MG/ML 100 ML IV PRN ×5 (02:02→15:49)
[2020-07-21 05:26] LABS: BASOPHILS # (AUTO) 0.1 (0.0-0.1); BASOPHILS % 0.6 % (0.0-1.0); EOSINOPHILS # (AUTO) 0.4 (0.0-0.4); EOSINOPHILS % 2.9 % (0.0-6.0); HEMATOCRIT 28.1 % (34.2-44.1); HEMOGLOBIN 8.2 g/dL (12.0-16.0); LYMPHOCYTES # (AUTO) 1.3 (1.0-3.2); LYMPHOCYTES % 10.9 % (18.0-39.1); MEAN CORPUSCULAR HEMOGLOBIN 29.7 pg (28-32); MEAN CORPUSCULAR HGB CONC 29.2 g/dL (31-35); MEAN CORPUSCULAR VOLUME 101.8 fL (81-99); MONOCYTES # (AUTO) 0.8 (0.2-0.8); MONOCYTES % 6.9 % (4.4-11.3); NEUTROPHILS # (AUTO) 8.9 (2.1-6.9); NEUTROPHILS % 73.4 % (38.7-80.0); PLATELET COUNT 500 x10e3/uL (140-360); RED BLOOD COUNT 2.76 x10e6/uL (3.6-5.1)
[2020-07-21 06:01] LABS: ALANINE AMINOTRANSFERASE 45 IU/L (0-55); ALBUMIN 2.8 g/dL (3.5-5.0); ALBUMIN/GLOBULIN RATIO 0.7 (0.8-2.0); ALKALINE PHOSPHATASE 75 IU/L (40-150); ANION GAP 11.8 mmol/L (8-16); BLOOD UREA NITROGEN 18 mg/dL (7-26); BUN/CREATININE RATIO 37 (6-25); CALCIUM 8.1 mg/dL (8.4-10.2); CARBON DIOXIDE 36 mmol/L (22-29); CHLORIDE 104 mmol/L (98-107); CREATININE, SERUM 0.49 mg/dL (0.57-1.11); EST GLOMERULAR FILTRATION RATE > 60 ML/MIN (60-); GLUCOSE 120 mg/dL (74-118); POTASSIUM 3.8 mmol/L (3.5-5.1); SODIUM 148 mmol/L (136-145)
[2020-07-21] MEDS: ROCURONIUM BROMIDE 1,250 MG in SODIUM CHLORIDE 0.9% 250ML 125 ML IV SCH (06:04)
[2020-07-21] MEDS: FENTANYL 2000MCG/NS 250 250 ML IV SCH ×3 (06:05→20:06)
[2020-07-21 07:25] LABS: ABG HCO3 39 mmol/L (22-26); ABG PCO2 90 mmHg (35-45); ABG PH 7.24 (7.35-7.45); ABG PO2 92 mmHg (80-105); ABG TCO2 41
[2020-07-21] MEDS: DOCUSATE SODIUM LIQD 100 MG/10 ML UDC NG SCH (08:15)
[2020-07-21] MEDS: EYE LUBRICANT OPTH OINT 3.5GM TUBE OP SCH (08:15)
[2020-07-21] MEDS: KCL 20 MEQ PACKET/ ORAL SOLN NG SCH (08:15)
[2020-07-21] MEDS: ASPIRIN 81 MG CHEW TAB PO SCH (08:16)
[2020-07-21] MEDS: ACETAZOLAMIDE 250 MG TAB PO SCH ×2 (08:16→21:00)
[2020-07-21] MEDS: ASCORBIC ACID 500 MG TAB PO SCH (08:16)
[2020-07-21] MEDS: LEVOTHYROXINE SODIUM 50 MCG TAB PO SCH (08:16)
[2020-07-21] MEDS: METOPROLOL TARTRATE 25 MG TAB PO SCH (08:16)
[2020-07-21] MEDS: ZINC SULFATE 220 MG CAP PO SCH (08:16)
[2020-07-21] MEDS ORDERED: ALBUMIN 25% 25GM 100ML 0.25 GM/ML BTL IV SCH (09:00)
[2020-07-21] MEDS ORDERED: FUROSEMIDE INJ 10 MG/ML 4 ML VIAL IV ONE (09:40)
[2020-07-21 10:16] LABS: ABG HCO3 36 mmol/L (22-26); ABG PCO2 63 mmHg (35-45); ABG PH 7.36 (7.35-7.45); ABG PO2 62 mmHg (80-105); ABG TCO2 38
[2020-07-21] MEDS: ALBUMIN 25% 25GM 100ML 100 ML IV SCH ×2 (10:20→17:04)
[2020-07-21] MEDS ORDERED: BUPIVACAINE 0.25% 30ML SDV ONE (10:56)
[2020-07-21] MEDS ORDERED: LIDOCAINE 1% W/EPINEPHRINE 20 ML VIAL ONE (10:56)
[2020-07-21] MEDS ORDERED: CEFAZOLIN SOD 1 GM VIAL IV ONE (11:45)
[2020-07-21] MEDS ORDERED: CEFAZOLIN SOD 1 GM/NS 50ML 50 ML IV ONE (12:00)
[2020-07-21] MEDS ORDERED: PHENYLEPHRINE HCL 1% 10 MG/ML VIAL ONE (12:05)
[2020-07-21] MEDS ORDERED: PROPOFOL IV EMULSION 10 MG/ML 20 ML VIAL ONE (12:05)
[2020-07-21 17:55] LABS: ABG HCO3 37 mmol/L (22-26); ABG PCO2 75 mmHg (35-45); ABG PH 7.29 (7.35-7.45); ABG PO2 69 mmHg (80-105); ABG TCO2 39
[2020-07-21] MEDS: IBUPROFEN 100 MG/5 ML SUSP PO PRN (21:30)
[2020-07-21] MEDS: PROPOFOL IV EMULSION 50 ML IV PRN ×2 (21:57→21:58)
[2020-07-22] VITALS (25 sets, daily range): BP systolic 71–177; BP diastolic 41–94
[2020-07-22] MEDS: PROPOFOL IV EMULSION 50 ML IV PRN ×12 (01:23→19:25)
[2020-07-22] MEDS: ALBUMIN 25% 25GM 100ML 100 ML IV SCH (02:05)
[2020-07-22] MEDS: MIDAZOLAM HCL 5MG/ML 10ML VIAL 100 ML IV PRN ×5 (02:42→23:39)
[2020-07-22] MEDS: FENTANYL 2000MCG/NS 250 250 ML IV SCH ×4 (03:01→23:57)
[2020-07-22 04:52] LABS: BASOPHILS # (AUTO) 0.1 (0.0-0.1); BASOPHILS % 0.6 % (0.0-1.0); EOSINOPHILS # (AUTO) 0.3 (0.0-0.4); EOSINOPHILS % 2.5 % (0.0-6.0); LYMPHOCYTES # (AUTO) 1.1 (1.0-3.2); LYMPHOCYTES % 10.2 % (18.0-39.1); MEAN CORPUSCULAR HEMOGLOBIN 29.7 pg (28-32); MEAN CORPUSCULAR VOLUME 105.9 fL (81-99); MONOCYTES # (AUTO) 0.7 (0.2-0.8); MONOCYTES % 6.5 % (4.4-11.3); NEUTROPHILS # (AUTO) 7.8 (2.1-6.9); NEUTROPHILS % 75.3 % (38.7-80.0); PLATELET COUNT 428 x10e3/uL (140-360); RED BLOOD COUNT 2.36 x10e6/uL (3.6-5.1); RED CELL DISTRIBUTION WIDTH 14.2 % (11.7-14.4)
[2020-07-22 05:18] LABS: ALANINE AMINOTRANSFERASE 86 IU/L (0-55); ALBUMIN 3.8 g/dL (3.5-5.0); ALBUMIN/GLOBULIN RATIO 1.1 (0.8-2.0); ALKALINE PHOSPHATASE 93 IU/L (40-150); ANION GAP 15.7 mmol/L (8-16); BLOOD UREA NITROGEN 17 mg/dL (7-26); BUN/CREATININE RATIO 33 (6-25); CARBON DIOXIDE 35 mmol/L (22-29); CHLORIDE 103 mmol/L (98-107); CREATININE, SERUM 0.52 mg/dL (0.57-1.11); EST GLOMERULAR FILTRATION RATE > 60 ML/MIN (60-); GLUCOSE 109 mg/dL (74-118); POTASSIUM 3.7 mmol/L (3.5-5.1); SODIUM 150 mmol/L (136-145)
[2020-07-22 07:00] LABS: MICROCYTOSIS SLIGHT; PLATELET ESTIMATE SLIGHTLY INCREASED; PLATELET MORPHOLOGY COMMENT FEW LARGE
[2020-07-22 07:01] LABS: OVALOCYTES FEW; POLYCHROMASIA FEW; RBC MORPHOLOGY COMMENT ABNORMAL
[2020-07-22 08:37] LABS: ABG HCO3 38 mmol/L (22-26); ABG PCO2 96 mmHg (35-45); ABG PH 7.21 (7.35-7.45); ABG PO2 80 mmHg (80-105); ABG TCO2 41
[2020-07-22] MEDS: ACETAZOLAMIDE 250 MG TAB PO SCH ×2 (08:37→20:45)
[2020-07-22] MEDS: DOCUSATE SODIUM LIQD 100 MG/10 ML UDC NG SCH (08:37)
[2020-07-22] MEDS: KCL 20 MEQ PACKET/ ORAL SOLN NG SCH (08:37)
[2020-07-22] MEDS: ASPIRIN 81 MG CHEW TAB PO SCH (08:37)
[2020-07-22] MEDS: METOPROLOL TARTRATE 25 MG TAB PO SCH (08:38)
[2020-07-22] MEDS: LEVOTHYROXINE SODIUM 50 MCG TAB PO SCH (08:38)
[2020-07-22] MEDS: ASCORBIC ACID 500 MG TAB PO SCH (08:38)
[2020-07-22] MEDS: ZINC SULFATE 220 MG CAP PO SCH (08:38)
[2020-07-22] MEDS ORDERED: SODIUM CHLORIDE 0.9% 250ML 250 ML IV ONE (08:45)
[2020-07-22] MEDS ORDERED: ACETAMINOPHEN 325 MG TAB PO ONE (08:50)
[2020-07-22] MEDS ORDERED: DEXTROSE 5% 1,000 ML IV SCH (09:00)
[2020-07-22] MEDS ORDERED: FUROSEMIDE INJ 100 MG in SODIUM CHLORIDE 0.9% 100 ML 90 ML IV SCH (09:30)
[2020-07-22] MEDS: METOLAZONE 5 MG TAB NG SCH (10:08)
[2020-07-22] MEDS ORDERED: FUROSEMIDE INJ 10 MG/ML 4 ML VIAL IV ONE (11:30)
[2020-07-22] MEDS ORDERED: FUROSEMIDE INJ 10 MG/ML 4 ML VIAL ONE (15:04)
[2020-07-22] MEDS: EYE LUBRICANT OPTH OINT 3.5GM TUBE OP SCH (15:28)
[2020-07-22] MEDS ORDERED: VASOPRESSIN 60 UNIT in DEXTROSE 5% 50ML 57 ML IV PRN (18:40)
[2020-07-22] MEDS ORDERED: SODIUM BICARBONATE 8.4% INJ 50 ML SYR IV NR (19:00)
[2020-07-22] MEDS ORDERED: SODIUM BICARBONATE 8.4% SYRING 150 ML in DEXTROSE 5% 1,000 ML IV SCH (19:30)
[2020-07-22 20:33] LABS: ABG PCO2 > 130 mmHg (35-45); ABG PH 7.01 (7.35-7.45); ABG PO2 59 mmHg (80-105)
[2020-07-22] MEDS: ENOXAPARIN SOD INJ 60 MG/0.6 ML SYR SC SCH (20:45)
[2020-07-22 21:16] LABS: ABG HCO3 46 mmol/L (22-26); ABG PCO2 106 mmHg (35-45); ABG PH 7.25 (7.35-7.45); ABG PO2 64 mmHg (80-105); ABG TCO2 50
[2020-07-22] MEDS: HYDRALAZINE HCL 20 MG/ML VIAL IV PRN (23:50)
[2020-07-23] VITALS (24 sets, daily range): BP systolic 99–158; BP diastolic 54–79
[2020-07-23] MEDS: PROPOFOL IV EMULSION 50 ML IV PRN ×5 (01:23→12:12)
[2020-07-23] MEDS: ROCURONIUM BROMIDE 1,250 MG in SODIUM CHLORIDE 0.9% 250ML 125 ML IV SCH ×2 (01:45→17:15)
[2020-07-23] MEDS: MIDAZOLAM HCL 5MG/ML 10ML VIAL 100 ML IV PRN ×3 (04:50→22:39)
[2020-07-23] MEDS: DEXTROSE 5% 1,000 ML IV SCH ×2 (04:52→21:25)
[2020-07-23] MEDS: FUROSEMIDE INJ 100 MG in SODIUM CHLORIDE 0.9% 100 ML 90 ML IV SCH ×2 (04:53→10:57)
[2020-07-23 05:29] LABS: BASOPHILS # (AUTO) 0.1 (0.0-0.1); BASOPHILS % 0.8 % (0.0-1.0); EOSINOPHILS # (AUTO) 0.1 (0.0-0.4); EOSINOPHILS % 0.5 % (0.0-6.0); HEMATOCRIT 29.9 % (34.2-44.1); HEMOGLOBIN 8.9 g/dL (12.0-16.0); LYMPHOCYTES # (AUTO) 0.9 (1.0-3.2); LYMPHOCYTES % 6.7 % (18.0-39.1); MEAN CORPUSCULAR HEMOGLOBIN 30.1 pg (28-32); MEAN CORPUSCULAR HGB CONC 29.8 g/dL (31-35); MONOCYTES # (AUTO) 0.9 (0.2-0.8); MONOCYTES % 6.7 % (4.4-11.3); NEUTROPHILS # (AUTO) 10.6 (2.1-6.9); PLATELET COUNT 435 x10e3/uL (140-360); RED BLOOD COUNT 2.96 x10e6/uL (3.6-5.1); RED CELL DISTRIBUTION WIDTH 14.6 % (11.7-14.4)
[2020-07-23 05:56] LABS: ALANINE AMINOTRANSFERASE 176 IU/L (0-55); ALBUMIN 3.7 g/dL (3.5-5.0); ALBUMIN/GLOBULIN RATIO 0.9 (0.8-2.0); ALKALINE PHOSPHATASE 187 IU/L (40-150); ANION GAP 19.1 mmol/L (8-16); BLOOD UREA NITROGEN 16 mg/dL (7-26); BUN/CREATININE RATIO 27 (6-25); CALCIUM 8.8 mg/dL (8.4-10.2); CHLORIDE 87 mmol/L (98-107); EST GLOMERULAR FILTRATION RATE > 60 ML/MIN (60-); GLUCOSE 156 mg/dL (74-118); SODIUM 152 mmol/L (136-145)
[2020-07-23 06:15] LABS: POTASSIUM 2.1 mmol/L (3.5-5.1)
[2020-07-23 06:16] LABS: CARBON DIOXIDE 48 mmol/L (22-29)
[2020-07-23 06:23] LABS: MAGNESIUM 2.1 MG/DL (1.3-2.1); PHOSPHORUS 2.2 MG/DL (2.3-4.7)
[2020-07-23] MEDS: POTASSIUM CHLORIDE 20MEQ/100ML 100 ML IV PRN (06:30)
[2020-07-23] MEDS: FENTANYL 2000MCG/NS 250 250 ML IV SCH ×3 (06:44→22:08)
[2020-07-23 06:53] LABS: ABG HCO3 55 mmol/L (22-26); ABG PCO2 88 mmHg (35-45); ABG PH 7.41 (7.35-7.45); ABG PO2 46 mmHg (80-105)
[2020-07-23 06:54] LABS: ABG TCO2 > 50
[2020-07-23] MEDS ORDERED: HEPARIN 25,000 UNIT 900 UNIT in DEXTROSE 5% 250ML 250 ML IV SCH ×2 (07:30→08:30)
[2020-07-23] MEDS: ENOXAPARIN SOD INJ 60 MG/0.6 ML SYR SC SCH (08:00)
[2020-07-23] MEDS: METOPROLOL TARTRATE 25 MG TAB PO SCH ×2 (09:00→09:55)
[2020-07-23] MEDS: DOCUSATE SODIUM LIQD 100 MG/10 ML UDC NG SCH (09:00)
[2020-07-23] MEDS: METOLAZONE 5 MG TAB NG SCH (09:01)
[2020-07-23] MEDS: KCL 20 MEQ PACKET/ ORAL SOLN NG SCH (09:01)
[2020-07-23] MEDS: EYE LUBRICANT OPTH OINT 3.5GM TUBE OP SCH (09:01)
[2020-07-23] MEDS: ASPIRIN 81 MG CHEW TAB PO SCH (09:01)
[2020-07-23] MEDS: ZINC SULFATE 220 MG CAP PO SCH (09:02)
[2020-07-23] MEDS: ASCORBIC ACID 500 MG TAB PO SCH (09:02)
[2020-07-23] MEDS: LEVOTHYROXINE SODIUM 100 MCG/VIAL IV SCH (10:56)
[2020-07-23] MEDS ORDERED: BUPIVACAINE HCL 0.5% INJ 30 ML VIAL INJ ONE (11:50)
[2020-07-23] MEDS ORDERED: SODIUM CHLORIDE 0.9% 500ML 500 ML ONE (12:06)
[2020-07-23] MEDS ORDERED: KETAMINE HCL INJ 50 MG/ML 10 ML VIAL ONE (12:36)
[2020-07-23 15:00] LABS: ABG HCO3 56 mmol/L (22-26); ABG PCO2 102 mmHg (35-45); ABG PH 7.35 (7.35-7.45); ABG PO2 75 mmHg (80-105)
[2020-07-23 15:01] LABS: ABG TCO2 > 50
[2020-07-23] MEDS: IBUPROFEN 100 MG/5 ML SUSP PO PRN (15:48)
[2020-07-23] MEDS ORDERED: ACETAMINOPHEN 1000 MG/100 ML IV STA (16:34)
[2020-07-23] MEDS ORDERED: PHENYLEPHRINE HCL 1% 10 MG/ML VIAL ONE (19:25)
[2020-07-23] MEDS ORDERED: LIDOCAINE HCL 2% LOCAL INJ 5 ML SDV VIAL INJ ONE (19:25)
[2020-07-23] MEDS ORDERED: EPHEDRINE SULFATE INJ 50 MG/ML VIAL ONE (19:25)
[2020-07-23] MEDS ORDERED: PROPOFOL IV EMULSION 10 MG/ML 20 ML VIAL ONE (19:25)
[2020-07-23] MEDS ORDERED: MEROPENEM 500MG 500 MG in SODIUM CHLORIDE 0.9% 50ML 50 ML IV SCH (20:00)
[2020-07-23] MEDS: MEROPENEM 500MG/ NS 50ML 50 ML IV SCH (20:00)
[2020-07-24] VITALS (26 sets, daily range): BP systolic 122–156; BP diastolic 67–80
[2020-07-24] MEDS: PROPOFOL IV EMULSION 50 ML IV PRN ×7 (01:39→19:25)
[2020-07-24] MEDS: MEROPENEM 500MG/ NS 50ML 50 ML IV SCH ×4 (01:55→20:50)
[2020-07-24] MEDS: MIDAZOLAM HCL 5MG/ML 10ML VIAL 100 ML IV PRN ×2 (04:27→09:35)
[2020-07-24] MEDS: FENTANYL 2000MCG/NS 250 250 ML IV SCH ×3 (04:27→18:00)
[2020-07-24 04:50] LABS: BASOPHILS # (AUTO) 0.1 (0.0-0.1); BASOPHILS % 0.7 % (0.0-1.0); EOSINOPHILS # (AUTO) 0.2 (0.0-0.4); EOSINOPHILS % 1.7 % (0.0-6.0); HEMATOCRIT 26.1 % (34.2-44.1); HEMOGLOBIN 7.8 g/dL (12.0-16.0); LYMPHOCYTES # (AUTO) 0.9 (1.0-3.2); LYMPHOCYTES % 8.1 % (18.0-39.1); MEAN CORPUSCULAR HEMOGLOBIN 29.2 pg (28-32); MEAN CORPUSCULAR HGB CONC 29.9 g/dL (31-35); MEAN CORPUSCULAR VOLUME 97.8 fL (81-99); MONOCYTES # (AUTO) 0.8 (0.2-0.8); MONOCYTES % 7.4 % (4.4-11.3); NEUTROPHILS # (AUTO) 8.4 (2.1-6.9); NEUTROPHILS % 78.9 % (38.7-80.0); PLATELET COUNT 363 x10e3/uL (140-360); RED BLOOD COUNT 2.67 x10e6/uL (3.6-5.1); RED CELL DISTRIBUTION WIDTH 14.3 % (11.7-14.4)
[2020-07-24 05:13] LABS: ALANINE AMINOTRANSFERASE 109 IU/L (0-55); ALBUMIN 3.1 g/dL (3.5-5.0); ALBUMIN/GLOBULIN RATIO 0.8 (0.8-2.0); ALKALINE PHOSPHATASE 143 IU/L (40-150); BLOOD UREA NITROGEN 18 mg/dL (7-26); BUN/CREATININE RATIO 36 (6-25); CALCIUM 8.4 mg/dL (8.4-10.2); CHLORIDE 85 mmol/L (98-107); EST GLOMERULAR FILTRATION RATE > 60 ML/MIN (60-); GLUCOSE 177 mg/dL (74-118); SODIUM 145 mmol/L (136-145)
[2020-07-24 05:50] LABS: ANION GAP 13.8 mmol/L (8-16)
[2020-07-24 05:51] LABS: CARBON DIOXIDE 49 mmol/L (22-29); POTASSIUM 2.8 mmol/L (3.5-5.1)
[2020-07-24] MEDS: POTASSIUM CHLORIDE 20MEQ/100ML 200 ML IV PRN (06:27)
[2020-07-24 07:55] LABS: ABG HCO3 56 mmol/L (22-26); ABG PCO2 103 mmHg (35-45); ABG PH 7.34 (7.35-7.45); ABG PO2 90 mmHg (80-105); ABG TCO2 > 50
[2020-07-24] MEDS ORDERED: HEPARIN 25,000 UNIT 900 UNIT in DEXTROSE 5% 250ML 250 ML IV SCH (08:15)
[2020-07-24] MEDS: HEPARIN 25,000 UNIT 900 UNIT in DEXTROSE 5% 250ML 250 ML IV SCH (09:00)
[2020-07-24] MEDS: ASPIRIN 81 MG CHEW TAB PO SCH (10:14)
[2020-07-24] MEDS: EYE LUBRICANT OPTH OINT 3.5GM TUBE OP SCH (10:14)
[2020-07-24] MEDS: DOCUSATE SODIUM LIQD 100 MG/10 ML UDC NG SCH (10:14)
[2020-07-24] MEDS: ACETAZOLAMIDE 250 MG TAB PO SCH ×2 (10:15→17:14)
[2020-07-24] MEDS: ASCORBIC ACID 500 MG TAB PO SCH (10:15)
[2020-07-24] MEDS: ZINC SULFATE 220 MG CAP PO SCH (10:15)
[2020-07-24] MEDS ORDERED: POTASSIUM CHLORIDE 20MEQ/100ML 200 ML IV ONE (10:30)
[2020-07-24] MEDS: DEXTROSE 5% 1,000 ML IV SCH (11:10)
[2020-07-24] MEDS: KCL 20 MEQ PACKET/ ORAL SOLN NG SCH ×2 (11:11→17:17)
[2020-07-24 15:10] LABS: ABG HCO3 52 mmol/L (22-26); ABG PCO2 106 mmHg (35-45); ABG PO2 89 mmHg (80-105); ABG TCO2 > 50
[2020-07-24] MEDS: MIDAZOLAM HCL 5MG/ML 10ML VIAL 100 ML IV SCH ×2 (15:12→19:23)
[2020-07-24] MEDS: ROCURONIUM BROMIDE 1,250 MG in SODIUM CHLORIDE 0.9% 250ML 125 ML IV SCH (17:15)
[2020-07-25] VITALS (14 sets, daily range): BP systolic 118–146; BP diastolic 65–82
[2020-07-25] MEDS: HEPARIN 25,000 UNIT 900 UNIT in DEXTROSE 5% 250ML 250 ML IV SCH ×2 (00:41→07:15)
[2020-07-25] MEDS: PROPOFOL IV EMULSION 50 ML IV PRN ×2 (01:21→02:55)
[2020-07-25] MEDS: MIDAZOLAM HCL 5MG/ML 10ML VIAL 100 ML IV SCH ×3 (02:03→22:58)
[2020-07-25] MEDS: FENTANYL 2000MCG/NS 250 250 ML IV SCH ×2 (02:04→22:57)
[2020-07-25] MEDS: MEROPENEM 500MG/ NS 50ML 50 ML IV SCH ×4 (02:10→20:19)
[2020-07-25 06:45] LABS: BASOPHILS # (AUTO) 0.1 (0.0-0.1); BASOPHILS % 0.7 % (0.0-1.0); EOSINOPHILS # (AUTO) 0.6 (0.0-0.4); EOSINOPHILS % 5.8 % (0.0-6.0); HEMOGLOBIN 7.9 g/dL (12.0-16.0); LYMPHOCYTES # (AUTO) 1.1 (1.0-3.2); MEAN CORPUSCULAR HEMOGLOBIN 29.6 pg (28-32); MEAN CORPUSCULAR HGB CONC 29.3 g/dL (31-35); MONOCYTES # (AUTO) 0.7 (0.2-0.8); MONOCYTES % 6.7 % (4.4-11.3); NEUTROPHILS # (AUTO) 8.2 (2.1-6.9); NEUTROPHILS % 74.1 % (38.7-80.0); PLATELET COUNT 343 x10e3/uL (140-360); RED BLOOD COUNT 2.67 x10e6/uL (3.6-5.1); RED CELL DISTRIBUTION WIDTH 14.3 % (11.7-14.4)
[2020-07-25 06:51] LABS: MEAN CORPUSCULAR VOLUME 101.1 fL (81-99)
[2020-07-25 07:03] LABS: ABG HCO3 50 mmol/L (22-26); ABG PCO2 114 mmHg (35-45); ABG PH 7.25 (7.35-7.45); ABG PO2 61 mmHg (80-105)
[2020-07-25 07:04] LABS: ABG TCO2 50
[2020-07-25 07:17] LABS: ALANINE AMINOTRANSFERASE 88 IU/L (0-55); ALBUMIN 2.8 g/dL (3.5-5.0); ALBUMIN/GLOBULIN RATIO 0.7 (0.8-2.0); ALKALINE PHOSPHATASE 130 IU/L (40-150); ANION GAP 12.2 mmol/L (8-16); BLOOD UREA NITROGEN 14 mg/dL (7-26); BUN/CREATININE RATIO 28 (6-25); CHLORIDE 90 mmol/L (98-107); EST GLOMERULAR FILTRATION RATE > 60 ML/MIN (60-); GLUCOSE 214 mg/dL (74-118); POTASSIUM 3.2 mmol/L (3.5-5.1); SODIUM 143 mmol/L (136-145)
[2020-07-25 07:24] LABS: CARBON DIOXIDE 44 mmol/L (22-29)
[2020-07-25 07:32] LABS: MAGNESIUM 1.8 MG/DL (1.3-2.1); PHOSPHORUS 2.8 MG/DL (2.3-4.7)
[2020-07-25] MEDS: EYE LUBRICANT OPTH OINT 3.5GM TUBE OP SCH (09:54)
[2020-07-25] MEDS: FUROSEMIDE INJ 10 MG/ML 4 ML VIAL IV SCH (09:54)
[2020-07-25] MEDS: KCL 20 MEQ PACKET/ ORAL SOLN NG SCH ×2 (09:54→19:13)
[2020-07-25] MEDS: DOCUSATE SODIUM LIQD 100 MG/10 ML UDC NG SCH (09:54)
[2020-07-25] MEDS: ASCORBIC ACID 500 MG TAB PO SCH (09:55)
[2020-07-25] MEDS: ZINC SULFATE 220 MG CAP PO SCH (09:55)
[2020-07-25] MEDS: ASPIRIN 81 MG CHEW TAB PO SCH (09:55)
[2020-07-25] MEDS: ACETAZOLAMIDE 250 MG TAB PO SCH ×2 (09:55→19:13)
[2020-07-25] MEDS: LEVOTHYROXINE SODIUM 100 MCG/VIAL IV SCH (09:55)
[2020-07-25] MEDS ORDERED: WATER STERILE 10 ML VIAL ONE (11:41)
[2020-07-25] MEDS ORDERED: VECURONIUM BROMIDE FOR INJ 20 MG VIAL ONE (11:41)
[2020-07-25 16:13] LABS: ABG HCO3 49 mmol/L (22-26); ABG PCO2 124 mmHg (35-45); ABG PH 7.21 (7.35-7.45); ABG PO2 76 mmHg (80-105); ABG TCO2 50
[2020-07-25] MEDS: ROCURONIUM BROMIDE 1,250 MG in SODIUM CHLORIDE 0.9% 250ML 125 ML IV SCH (17:15)
[2020-07-25] MEDS: PROPOFOL IV EMULSION 10MG/ML 100 ML IV PRN ×2 (22:58→22:59)
[2020-07-25] MEDS: ACETAMINOPHEN 325 MG TAB PO PRN (23:00)
[2020-07-26] VITALS (13 sets, daily range): BP systolic 122–145; BP diastolic 60–71
[2020-07-26] MEDS: MEROPENEM 500MG/ NS 50ML 50 ML IV SCH ×4 (02:30→20:23)
[2020-07-26] MEDS: IBUPROFEN 100 MG/5 ML SUSP PO PRN (02:30)
[2020-07-26] MEDS: HEPARIN 25,000 UNIT 900 UNIT in DEXTROSE 5% 250ML 250 ML IV SCH ×2 (02:45→22:15)
[2020-07-26] MEDS: MIDAZOLAM HCL 5MG/ML 10ML VIAL 100 ML IV SCH ×2 (03:37→23:42)
[2020-07-26] MEDS: PROPOFOL IV EMULSION 10MG/ML 100 ML IV PRN (04:30)
[2020-07-26 05:08] LABS: BASOPHILS # (AUTO) 0.1 (0.0-0.1); BASOPHILS % 0.8 % (0.0-1.0); EOSINOPHILS # (AUTO) 0.5 (0.0-0.4); EOSINOPHILS % 5.9 % (0.0-6.0); HEMATOCRIT 25.7 % (34.2-44.1); HEMOGLOBIN 7.6 g/dL (12.0-16.0); LYMPHOCYTES % 12.2 % (18.0-39.1); MEAN CORPUSCULAR HEMOGLOBIN 30.2 pg (28-32); MEAN CORPUSCULAR HGB CONC 29.6 g/dL (31-35); MONOCYTES # (AUTO) 0.6 (0.2-0.8); MONOCYTES % 7.2 % (4.4-11.3); NEUTROPHILS # (AUTO) 5.8 (2.1-6.9); NEUTROPHILS % 69.9 % (38.7-80.0); PLATELET COUNT 294 x10e3/uL (140-360); RED BLOOD COUNT 2.52 x10e6/uL (3.6-5.1); RED CELL DISTRIBUTION WIDTH 14.5 % (11.7-14.4)
[2020-07-26 05:28] LABS: ALANINE AMINOTRANSFERASE 77 IU/L (0-55); ALBUMIN 2.6 g/dL (3.5-5.0); ALBUMIN/GLOBULIN RATIO 0.7 (0.8-2.0); ALKALINE PHOSPHATASE 121 IU/L (40-150); ANION GAP 11.5 mmol/L (8-16); BLOOD UREA NITROGEN 15 mg/dL (7-26); BUN/CREATININE RATIO 31 (6-25); CALCIUM 8.3 mg/dL (8.4-10.2); CHLORIDE 93 mmol/L (98-107); CREATININE, SERUM 0.48 mg/dL (0.57-1.11); EST GLOMERULAR FILTRATION RATE > 60 ML/MIN (60-); GLUCOSE 142 mg/dL (74-118); POTASSIUM 3.5 mmol/L (3.5-5.1); SODIUM 146 mmol/L (136-145)
[2020-07-26 05:34] LABS: CARBON DIOXIDE 45 mmol/L (22-29)
[2020-07-26] MEDS: FENTANYL 2000MCG/NS 250 250 ML IV SCH ×2 (06:00→19:20)
[2020-07-26] MEDS: ACETAMINOPHEN 325 MG TAB PO PRN (06:00)
[2020-07-26 07:01] LABS: ABG HCO3 50 mmol/L (22-26); ABG PCO2 98 mmHg (35-45); ABG PH 7.31 (7.35-7.45); ABG PO2 63 mmHg (80-105); ABG TCO2 50
[2020-07-26] MEDS: EYE LUBRICANT OPTH OINT 3.5GM TUBE OP SCH (08:20)
[2020-07-26] MEDS: DOCUSATE SODIUM LIQD 100 MG/10 ML UDC NG SCH (08:20)
[2020-07-26] MEDS: KCL 20 MEQ PACKET/ ORAL SOLN NG SCH ×2 (08:20→17:22)
[2020-07-26] MEDS: FUROSEMIDE INJ 10 MG/ML 4 ML VIAL IV SCH (08:20)
[2020-07-26] MEDS: ACETAZOLAMIDE 250 MG TAB PO SCH (08:21)
[2020-07-26] MEDS: ASPIRIN 81 MG CHEW TAB PO SCH (08:21)
[2020-07-26] MEDS: ASCORBIC ACID 500 MG TAB PO SCH (08:21)
[2020-07-26] MEDS: ZINC SULFATE 220 MG CAP PO SCH (08:21)
[2020-07-26] MEDS ORDERED: SODIUM CHLORIDE 0.9% 1000ML 1,000 ML ONE (15:23)
[2020-07-26 16:01] LABS: ABG HCO3 51 mmol/L (22-26); ABG PCO2 98 mmHg (35-45); ABG PH 7.32 (7.35-7.45); ABG PO2 67 mmHg (80-105); ABG TCO2 50
[2020-07-26] MEDS: ROCURONIUM BROMIDE 1,250 MG in SODIUM CHLORIDE 0.9% 250ML 125 ML IV SCH (17:15)
[2020-07-27] VITALS (22 sets, daily range): BP systolic 120–149; BP diastolic 62–80
[2020-07-27] MEDS: PROPOFOL IV EMULSION 10MG/ML 100 ML IV PRN ×4 (01:15→20:38)
[2020-07-27] MEDS: FENTANYL 2000MCG/NS 250 250 ML IV SCH ×2 (01:30→09:30)
[2020-07-27] MEDS: MEROPENEM 500MG/ NS 50ML 50 ML IV SCH ×4 (01:42→20:37)
[2020-07-27] MEDS: MIDAZOLAM HCL 5MG/ML 10ML VIAL 100 ML IV SCH ×3 (04:55→21:00)
[2020-07-27 06:34] LABS: BASOPHILS # (AUTO) 0.1 (0.0-0.1); BASOPHILS % 1.2 % (0.0-1.0); EOSINOPHILS # (AUTO) 0.5 (0.0-0.4); EOSINOPHILS % 5.9 % (0.0-6.0); HEMATOCRIT 25.5 % (34.2-44.1); HEMOGLOBIN 7.8 g/dL (12.0-16.0); LYMPHOCYTES # (AUTO) 1.1 (1.0-3.2); LYMPHOCYTES % 14.1 % (18.0-39.1); MEAN CORPUSCULAR HEMOGLOBIN 31.5 pg (28-32); MEAN CORPUSCULAR HGB CONC 30.6 g/dL (31-35); MEAN CORPUSCULAR VOLUME 102.8 fL (81-99); MONOCYTES # (AUTO) 0.7 (0.2-0.8); MONOCYTES % 8.3 % (4.4-11.3); NEUTROPHILS # (AUTO) 5.1 (2.1-6.9); NEUTROPHILS % 65.1 % (38.7-80.0); PLATELET COUNT 269 x10e3/uL (140-360); RED BLOOD COUNT 2.48 x10e6/uL (3.6-5.1); RED CELL DISTRIBUTION WIDTH 14.8 % (11.7-14.4)
[2020-07-27 07:09] LABS: ALANINE AMINOTRANSFERASE 75 IU/L (0-55); ALBUMIN 2.5 g/dL (3.5-5.0); ALBUMIN/GLOBULIN RATIO 0.6 (0.8-2.0); ALKALINE PHOSPHATASE 108 IU/L (40-150); ANION GAP 8.9 mmol/L (8-16); BLOOD UREA NITROGEN 13 mg/dL (7-26); BUN/CREATININE RATIO 32 (6-25); CHLORIDE 93 mmol/L (98-107); CREATININE, SERUM 0.41 mg/dL (0.57-1.11); EST GLOMERULAR FILTRATION RATE > 60 ML/MIN (60-); GLUCOSE 149 mg/dL (74-118); POTASSIUM 3.9 mmol/L (3.5-5.1); SODIUM 143 mmol/L (136-145)
[2020-07-27 07:10] LABS: CARBON DIOXIDE 45 mmol/L (22-29)
[2020-07-27 07:54] LABS: ABG HCO3 50 mmol/L (22-26); ABG PCO2 108 mmHg (35-45); ABG PH 7.27 (7.35-7.45); ABG PO2 67 mmHg (80-105); ABG TCO2 50
[2020-07-27] MEDS: ASPIRIN 81 MG CHEW TAB PO SCH (10:56)
[2020-07-27] MEDS: EYE LUBRICANT OPTH OINT 3.5GM TUBE OP SCH (10:56)
[2020-07-27] MEDS: ZINC SULFATE 220 MG CAP PO SCH (10:56)
[2020-07-27] MEDS: DOCUSATE SODIUM LIQD 100 MG/10 ML UDC NG SCH (10:56)
[2020-07-27] MEDS: ASCORBIC ACID 500 MG TAB PO SCH (10:56)
[2020-07-27] MEDS: LEVOTHYROXINE SODIUM 100 MCG/VIAL IV SCH (10:56)
[2020-07-27] MEDS: FUROSEMIDE INJ 10 MG/ML 4 ML VIAL IV SCH (10:56)
[2020-07-27] MEDS: KCL 20 MEQ PACKET/ ORAL SOLN NG SCH ×2 (10:56→17:26)
[2020-07-27] MEDS ORDERED: FENTANYL 2,000 MCG/250 ML BAG ONE (12:29)
[2020-07-27] MEDS ORDERED: MIDAZOLAM HCL 5MG/ML 10ML VIAL 100 ML BAG IV ONE (12:29)
[2020-07-27] MEDS ORDERED: PROPOFOL IV EMULSION 10MG/ML 100ML BTL ONE (12:29)
[2020-07-27] MEDS ORDERED: PROPOFOL IV EMULSION 10 MG/ML 50 ML VIAL IV ONE (12:29)
[2020-07-28] VITALS (24 sets, daily range): BP systolic 104–155; BP diastolic 48–82
[2020-07-28] MEDS: MEROPENEM 500MG/ NS 50ML 50 ML IV SCH ×4 (02:30→20:00)
[2020-07-28 06:32] LABS: BASOPHILS # (AUTO) 0.1 (0.0-0.1); BASOPHILS % 0.9 % (0.0-1.0); EOSINOPHILS # (AUTO) 0.4 (0.0-0.4); EOSINOPHILS % 5.6 % (0.0-6.0); HEMATOCRIT 26.6 % (34.2-44.1); HEMOGLOBIN 7.4 g/dL (12.0-16.0); LYMPHOCYTES # (AUTO) 1.4 (1.0-3.2); LYMPHOCYTES % 18.6 % (18.0-39.1); MEAN CORPUSCULAR HEMOGLOBIN 29.4 pg (28-32); MEAN CORPUSCULAR HGB CONC 27.8 g/dL (31-35); MEAN CORPUSCULAR VOLUME 105.6 fL (81-99); MONOCYTES # (AUTO) 0.7 (0.2-0.8); NEUTROPHILS # (AUTO) 4.6 (2.1-6.9); NEUTROPHILS % 59.3 % (38.7-80.0); PLATELET COUNT 320 x10e3/uL (140-360); RED BLOOD COUNT 2.52 x10e6/uL (3.6-5.1); RED CELL DISTRIBUTION WIDTH 15.6 % (11.7-14.4)
[2020-07-28 07:01] LABS: ALANINE AMINOTRANSFERASE 78 IU/L (0-55); ALBUMIN 2.5 g/dL (3.5-5.0); ALBUMIN/GLOBULIN RATIO 0.6 (0.8-2.0); ALKALINE PHOSPHATASE 110 IU/L (40-150); BLOOD UREA NITROGEN 15 mg/dL (7-26); BUN/CREATININE RATIO 32 (6-25); CALCIUM 8.6 mg/dL (8.4-10.2); CHLORIDE 89 mmol/L (98-107); CREATININE, SERUM 0.47 mg/dL (0.57-1.11); EST GLOMERULAR FILTRATION RATE > 60 ML/MIN (60-); GLUCOSE 141 mg/dL (74-118); POTASSIUM 4.8 mmol/L (3.5-5.1); SODIUM 145 mmol/L (136-145)
[2020-07-28] MEDS: MIDAZOLAM HCL 5MG/ML 10ML VIAL 100 ML IV SCH (07:10)
[2020-07-28] MEDS: FENTANYL 2000MCG/NS 250 250 ML IV SCH ×2 (07:11)
[2020-07-28 07:27] LABS: ANION GAP 14.8 mmol/L (8-16)
[2020-07-28 07:34] LABS: CARBON DIOXIDE 46 mmol/L (22-29)
[2020-07-28] MEDS: HEPARIN 25,000 UNIT 900 UNIT in DEXTROSE 5% 250ML 250 ML IV SCH (09:00)
[2020-07-28] MEDS ORDERED: ACETAMINOPHEN 1000 MG/100 ML IV ONE (10:00)
[2020-07-28] MEDS: ZINC SULFATE 220 MG CAP PO SCH (10:56)
[2020-07-28] MEDS: FUROSEMIDE INJ 10 MG/ML 4 ML VIAL IV SCH (10:56)
[2020-07-28] MEDS: DOCUSATE SODIUM LIQD 100 MG/10 ML UDC NG SCH (10:56)
[2020-07-28] MEDS: ASCORBIC ACID 500 MG TAB PO SCH (10:56)
[2020-07-28] MEDS: EYE LUBRICANT OPTH OINT 3.5GM TUBE OP SCH (10:56)
[2020-07-28] MEDS: LEVOTHYROXINE SODIUM 100 MCG/VIAL IV SCH (10:56)
[2020-07-28] MEDS: KCL 20 MEQ PACKET/ ORAL SOLN NG SCH ×2 (10:56→15:57)
[2020-07-28] MEDS: ASPIRIN 81 MG CHEW TAB PO SCH (10:56)
[2020-07-28] MEDS: ACETAZOLAMIDE 250 MG TAB PO SCH ×2 (10:56→15:57)
[2020-07-28] MEDS ORDERED: DEXTROSE 5% 1,000 ML IV SCH (12:00)
[2020-07-28 12:01] LABS: ABG HCO3 53 mmol/L (22-26); ABG PCO2 109 mmHg (35-45); ABG PO2 51 mmHg (80-105); ABG TCO2 50
[2020-07-28] MEDS: PROPOFOL IV EMULSION 10MG/ML 100 ML IV PRN ×2 (15:11→15:12)
[2020-07-28] MEDS ORDERED: ACETAMINOPHEN 325 MG TAB PO STA (16:17)
[2020-07-28] MEDS ORDERED: SODIUM CHLORIDE 0.9% 250ML 250 ML IV ONE (16:30)
[2020-07-28] MEDS ORDERED: FUROSEMIDE INJ 10 MG/ML 4 ML VIAL IV ONE (16:30)
[2020-07-28 16:53] LABS: ABG PH 7.21 (7.35-7.45)
[2020-07-28 16:54] LABS: ABG PCO2 130 mmHg (35-45); ABG PO2 53 mmHg (80-105)
[2020-07-28 20:02] LABS: ABG PCO2 88 mmHg (35-45); ABG PH 7.37 (7.35-7.45); ABG PO2 44 mmHg (80-105)
[2020-07-28 20:03] LABS: ABG HCO3 51 mmol/L (22-26); ABG TCO2 50
[2020-07-28] MEDS: ACETAMINOPHEN 325 MG TAB PO PRN (20:45)
[2020-07-28] MEDS ORDERED: NOREPINEPHRINE INJ 4MG/4ML 8 MG in DEXTROSE 5% 250ML 250 ML IV SCH (21:15)
[2020-07-28] MEDS: IBUPROFEN 100 MG/5 ML SUSP PO PRN (22:17)
[2020-07-29] VITALS (19 sets, daily range): BP systolic 99–135; BP diastolic 60–74
[2020-07-29] MEDS: FENTANYL 2000MCG/NS 250 250 ML IV SCH (02:00)
[2020-07-29] MEDS: MEROPENEM 500MG/ NS 50ML 50 ML IV SCH ×4 (02:05→20:25)
[2020-07-29] MEDS: ACETAMINOPHEN 325 MG TAB PO PRN (02:06)
[2020-07-29 06:55] LABS: BASOPHILS # (AUTO) 0.1 (0.0-0.1); BASOPHILS % 1.1 % (0.0-1.0); EOSINOPHILS # (AUTO) 0.5 (0.0-0.4); EOSINOPHILS % 5.1 % (0.0-6.0); HEMATOCRIT 27.7 % (34.2-44.1); LYMPHOCYTES # (AUTO) 1.8 (1.0-3.2); LYMPHOCYTES % 20.2 % (18.0-39.1); MEAN CORPUSCULAR HEMOGLOBIN 30.5 pg (28-32); MEAN CORPUSCULAR HGB CONC 28.9 g/dL (31-35); MEAN CORPUSCULAR VOLUME 105.7 fL (81-99); MONOCYTES # (AUTO) 0.7 (0.2-0.8); MONOCYTES % 8.2 % (4.4-11.3); NEUTROPHILS # (AUTO) 5.1 (2.1-6.9); NEUTROPHILS % 56.7 % (38.7-80.0); PLATELET COUNT 316 x10e3/uL (140-360); RED BLOOD COUNT 2.62 x10e6/uL (3.6-5.1); RED CELL DISTRIBUTION WIDTH 15.3 % (11.7-14.4)
[2020-07-29 07:29] LABS: ALANINE AMINOTRANSFERASE 403 IU/L (0-55); ALBUMIN 2.4 g/dL (3.5-5.0); ALBUMIN/GLOBULIN RATIO 0.6 (0.8-2.0); ALKALINE PHOSPHATASE 163 IU/L (40-150); ANION GAP 11.2 mmol/L (8-16); BLOOD UREA NITROGEN 28 mg/dL (7-26); BUN/CREATININE RATIO 51 (6-25); CALCIUM 8.9 mg/dL (8.4-10.2); CHLORIDE 89 mmol/L (98-107); CREATININE, SERUM 0.55 mg/dL (0.57-1.11); EST GLOMERULAR FILTRATION RATE > 60 ML/MIN (60-); GLUCOSE 164 mg/dL (74-118); POTASSIUM 4.2 mmol/L (3.5-5.1); SODIUM 143 mmol/L (136-145)
[2020-07-29 07:36] LABS: CARBON DIOXIDE 47 mmol/L (22-29)
[2020-07-29 08:44] LABS: ABG HCO3 52 mmol/L (22-26); ABG PCO2 105 mmHg (35-45); ABG PO2 49 mmHg (80-105); ABG TCO2 50
[2020-07-29 11:07] LABS: BAND NEUTROPHILS % (MANUAL) 2 %; EOSINOPHILS % (MANUAL) 3 % (0-7); LYMPHOCYTES % (MANUAL) 7 % (19-48); MONOCYTES % (MANUAL) 7 % (3.4-9.0); MYELOCYTES % (MANUAL) 7 % (0-0); NEUTROPHILS % (MANUAL) 73 % (40-74); NUCLEATED RED BLOOD CELLS 5
[2020-07-29 11:08] LABS: PLATELET ESTIMATE ADEQUATE; POLYCHROMASIA FEW; RBC MORPHOLOGY COMMENT ABNORMAL; TEAR DROP CELLS FEW
[2020-07-29 11:09] LABS: ANISOCYTOSIS SLIGHT; HYPOCHROMASIA SLIGHT; PLATELET MORPHOLOGY COMMENT NORMAL
[2020-07-29] MEDS: FUROSEMIDE INJ 10 MG/ML 4 ML VIAL IV SCH ×2 (12:23→22:44)
[2020-07-29] MEDS: ACETAZOLAMIDE 250 MG TAB PO SCH ×2 (12:24→16:12)
[2020-07-29] MEDS: ZINC SULFATE 220 MG CAP PO SCH (12:24)
[2020-07-29] MEDS: ASCORBIC ACID 500 MG TAB PO SCH (12:24)
[2020-07-29] MEDS: ALBUMIN 25% 25GM 100ML 0.25 GM/ML BTL IV SCH ×2 (12:24→16:12)
[2020-07-29] MEDS: EYE LUBRICANT OPTH OINT 3.5GM TUBE OP SCH (12:24)
[2020-07-29] MEDS: ASPIRIN 81 MG CHEW TAB PO SCH (12:24)
[2020-07-29] MEDS: KCL 20 MEQ PACKET/ ORAL SOLN NG SCH ×2 (12:24→16:12)
[2020-07-29] MEDS: DOCUSATE SODIUM LIQD 100 MG/10 ML UDC NG SCH (12:24)
[2020-07-29 13:39] LABS: ABG HCO3 53 mmol/L (22-26); ABG PCO2 126 mmHg (35-45); ABG PH 7.23 (7.35-7.45); ABG PO2 52 mmHg (80-105); ABG TCO2 50
[2020-07-29 15:37] LABS: ABG PH 7.18 (7.35-7.45)
[2020-07-29 15:38] LABS: ABG PCO2 130 mmHg (35-45); ABG PO2 57 mmHg (80-105)
[2020-07-29 17:08] LABS: ABG HCO3 50 mmol/L (22-26); ABG PCO2 121 mmHg (35-45); ABG PH 7.23 (7.35-7.45); ABG PO2 61 mmHg (80-105); ABG TCO2 50
[2020-07-29] MEDS: MIDAZOLAM HCL 5MG/ML 10ML VIAL 100 ML IV SCH (20:25)
[2020-07-29] MEDS: ROCURONIUM BROMIDE 1,250 MG in SODIUM CHLORIDE 0.9% 250ML 125 ML IV SCH (22:44)
[2020-07-29] MEDS: PROPOFOL IV EMULSION 10MG/ML 100 ML IV PRN (22:58)
[2020-07-30] VITALS (25 sets, daily range): BP systolic 100–130; BP diastolic 57–72
[2020-07-30] MEDS: ALBUMIN 25% 25GM 100ML 0.25 GM/ML BTL IV SCH ×2 (01:30→10:28)
[2020-07-30] MEDS: MEROPENEM 500MG/ NS 50ML 50 ML IV SCH ×4 (02:00→19:58)
[2020-07-30] MEDS: MIDAZOLAM HCL 5MG/ML 10ML VIAL 100 ML IV SCH ×3 (06:23→23:04)
[2020-07-30] MEDS: PROPOFOL IV EMULSION 10MG/ML 100 ML IV PRN ×2 (06:26→22:27)
[2020-07-30 06:36] LABS: BASOPHILS # (AUTO) 0.1 (0.0-0.1); BASOPHILS % 1.2 % (0.0-1.0); EOSINOPHILS # (AUTO) 0.5 (0.0-0.4); EOSINOPHILS % 5.3 % (0.0-6.0); HEMATOCRIT 26.3 % (34.2-44.1); HEMOGLOBIN 7.6 g/dL (12.0-16.0); LYMPHOCYTES # (AUTO) 1.2 (1.0-3.2); LYMPHOCYTES % 12.9 % (18.0-39.1); MEAN CORPUSCULAR HEMOGLOBIN 30.5 pg (28-32); MEAN CORPUSCULAR HGB CONC 28.9 g/dL (31-35); MEAN CORPUSCULAR VOLUME 105.6 fL (81-99); MONOCYTES % 10.6 % (4.4-11.3); NEUTROPHILS # (AUTO) 5.6 (2.1-6.9); NEUTROPHILS % 58.7 % (38.7-80.0); PLATELET COUNT 296 x10e3/uL (140-360); RED BLOOD COUNT 2.49 x10e6/uL (3.6-5.1); RED CELL DISTRIBUTION WIDTH 15.6 % (11.7-14.4)
[2020-07-30 07:39] LABS: ALANINE AMINOTRANSFERASE 507 IU/L (0-55); ALBUMIN/GLOBULIN RATIO 0.7 (0.8-2.0); ALKALINE PHOSPHATASE 164 IU/L (40-150); BLOOD UREA NITROGEN 26 mg/dL (7-26); BUN/CREATININE RATIO 49 (6-25); CALCIUM 8.6 mg/dL (8.4-10.2); CHLORIDE 84 mmol/L (98-107); CREATININE, SERUM 0.53 mg/dL (0.57-1.11); EST GLOMERULAR FILTRATION RATE > 60 ML/MIN (60-); GLUCOSE 177 mg/dL (74-118); POTASSIUM 4.4 mmol/L (3.5-5.1); SODIUM 145 mmol/L (136-145)
[2020-07-30 08:01] LABS: CARBON DIOXIDE 46 mmol/L (22-29)
[2020-07-30 08:02] LABS: ANION GAP 19.4 mmol/L (8-16)
[2020-07-30 08:09] LABS: ABG PH 7.28 (7.35-7.45)
[2020-07-30 08:10] LABS: ABG HCO3 53 mmol/L (22-26); ABG PCO2 113 mmHg (35-45); ABG PO2 59 mmHg (80-105); ABG TCO2 50
[2020-07-30] MEDS: ASPIRIN 81 MG CHEW TAB PO SCH (09:22)
[2020-07-30] MEDS: EYE LUBRICANT OPTH OINT 3.5GM TUBE OP SCH (09:22)
[2020-07-30] MEDS: KCL 20 MEQ PACKET/ ORAL SOLN NG SCH ×2 (09:22→17:23)
[2020-07-30] MEDS: DOCUSATE SODIUM LIQD 100 MG/10 ML UDC NG SCH (09:22)
[2020-07-30] MEDS: ASCORBIC ACID 500 MG TAB PO SCH (09:22)
[2020-07-30] MEDS: ZINC SULFATE 220 MG CAP PO SCH (09:22)
[2020-07-30] MEDS: FUROSEMIDE INJ 10 MG/ML 4 ML VIAL IV SCH ×2 (09:22→19:58)
[2020-07-30 09:57] LABS: ANISOCYTOSIS SLIGHT; BAND NEUTROPHILS % (MANUAL) 5 %; EOSINOPHILS % (MANUAL) 8 % (0-7); LYMPHOCYTES % (MANUAL) 9 % (19-48); MONOCYTES % (MANUAL) 8 % (3.4-9.0); MYELOCYTES % (MANUAL) 7 % (0-0); NEUTROPHILS % (MANUAL) 61 % (40-74); NUCLEATED RED BLOOD CELLS 1; PLATELET ESTIMATE ADEQUATE; PLATELET MORPHOLOGY COMMENT NORMAL; POLYCHROMASIA FEW
[2020-07-30 09:58] LABS: TEAR DROP CELLS MODERATE
[2020-07-30 10:00] LABS: RBC MORPHOLOGY COMMENT ABNORMAL
[2020-07-30] MEDS: FENTANYL 2000MCG/NS 250 250 ML IV SCH ×2 (10:50→23:04)
[2020-07-30 15:59] LABS: ABG HCO3 54 mmol/L (22-26); ABG PCO2 129 mmHg (35-45); ABG PH 7.23 (7.35-7.45); ABG PO2 67 mmHg (80-105); ABG TCO2 50
[2020-07-30] MEDS: ACETAMINOPHEN 325 MG TAB PO PRN (17:22)
[2020-07-31] VITALS (22 sets, daily range): BP systolic 100–127; BP diastolic 54–71
[2020-07-31] MEDS: MEROPENEM 500MG/ NS 50ML 50 ML IV SCH ×4 (02:00→20:00)
[2020-07-31] MEDS: ROCURONIUM BROMIDE 1,250 MG in SODIUM CHLORIDE 0.9% 250ML 125 ML IV SCH ×3 (06:36→21:19)
[2020-07-31] MEDS: HEPARIN 25,000 UNIT 900 UNIT in DEXTROSE 5% 250ML 250 ML IV SCH ×2 (06:38→12:26)
[2020-07-31 06:39] LABS: BASOPHILS # (AUTO) 0.1 (0.0-0.1); EOSINOPHILS # (AUTO) 0.5 (0.0-0.4); EOSINOPHILS % 4.6 % (0.0-6.0); HEMATOCRIT 25.5 % (34.2-44.1); HEMOGLOBIN 7.2 g/dL (12.0-16.0); LYMPHOCYTES # (AUTO) 1.6 (1.0-3.2); LYMPHOCYTES % 14.4 % (18.0-39.1); MEAN CORPUSCULAR HEMOGLOBIN 30.5 pg (28-32); MEAN CORPUSCULAR HGB CONC 28.2 g/dL (31-35); MEAN CORPUSCULAR VOLUME 108.1 fL (81-99); MONOCYTES # (AUTO) 0.9 (0.2-0.8); MONOCYTES % 8.1 % (4.4-11.3); NEUTROPHILS # (AUTO) 6.5 (2.1-6.9); NEUTROPHILS % 60.3 % (38.7-80.0); PLATELET COUNT 281 x10e3/uL (140-360); RED BLOOD COUNT 2.36 x10e6/uL (3.6-5.1); RED CELL DISTRIBUTION WIDTH 16.5 % (11.7-14.4)
[2020-07-31] MEDS: MIDAZOLAM HCL 5MG/ML 10ML VIAL 100 ML IV SCH ×3 (06:44→16:17)
[2020-07-31 07:19] LABS: ALANINE AMINOTRANSFERASE 560 IU/L (0-55); ALBUMIN 2.7 g/dL (3.5-5.0); ALBUMIN/GLOBULIN RATIO 0.8 (0.8-2.0); ALKALINE PHOSPHATASE 192 IU/L (40-150); BLOOD UREA NITROGEN 26 mg/dL (7-26); BUN/CREATININE RATIO 60 (6-25); CALCIUM 8.4 mg/dL (8.4-10.2); CHLORIDE 87 mmol/L (98-107); CREATININE, SERUM 0.43 mg/dL (0.57-1.11); EST GLOMERULAR FILTRATION RATE > 60 ML/MIN (60-); GLUCOSE 142 mg/dL (74-118); MAGNESIUM 1.8 MG/DL (1.3-2.1); PHOSPHORUS 1.6 MG/DL (2.3-4.7); POTASSIUM 4.9 mmol/L (3.5-5.1); SODIUM 144 mmol/L (136-145)
[2020-07-31 07:43] LABS: ANION GAP 12.9 mmol/L (8-16)
[2020-07-31 07:45] LABS: CARBON DIOXIDE 49 mmol/L (22-29)
[2020-07-31] MEDS ORDERED: ACETAMINOPHEN 325 MG TAB PO STA (08:54)
[2020-07-31] MEDS ORDERED: FUROSEMIDE INJ 10 MG/ML 4 ML VIAL IV ONE (09:00)
[2020-07-31] MEDS ORDERED: SODIUM CHLORIDE 0.9% 250ML 250 ML IV ONE (09:00)
[2020-07-31 09:13] LABS: ABG PH 7.37 (7.35-7.45)
[2020-07-31 09:14] LABS: ABG PCO2 94 mmHg (35-45); ABG PO2 72 mmHg (80-105)
[2020-07-31 09:15] LABS: ABG HCO3 55 mmol/L (22-26); ABG TCO2 50
[2020-07-31] MEDS: ASCORBIC ACID 500 MG TAB PO SCH (09:18)
[2020-07-31] MEDS: ZINC SULFATE 220 MG CAP PO SCH (09:18)
[2020-07-31] MEDS: ASPIRIN 81 MG CHEW TAB PO SCH (09:18)
[2020-07-31] MEDS: KCL 20 MEQ PACKET/ ORAL SOLN NG SCH (09:18)
[2020-07-31] MEDS: DOCUSATE SODIUM LIQD 100 MG/10 ML UDC NG SCH (09:18)
[2020-07-31] MEDS: EYE LUBRICANT OPTH OINT 3.5GM TUBE OP SCH (09:18)
[2020-07-31] MEDS: LEVOTHYROXINE SODIUM 100 MCG/VIAL IV SCH (10:09)
[2020-07-31 10:35] LABS: LYMPHOCYTES % (MANUAL) 17 % (19-48); MONOCYTES % (MANUAL) 9 % (3.4-9.0); MYELOCYTES % (MANUAL) 5 % (0-0); NEUTROPHILS % (MANUAL) 63 % (40-74); NUCLEATED RED BLOOD CELLS 1
[2020-07-31 10:36] LABS: HYPOCHROMASIA SLIG; POLYCHROMASIA MANY; STOMATOCYTES SLIGHT
[2020-07-31 10:38] LABS: ANISOCYTOSIS MODE
[2020-07-31 10:39] LABS: PLATELET ESTIMATE ADEQUATE; RBC MORPHOLOGY COMMENT ABNORMAL
[2020-07-31] MEDS ORDERED: SODIUM PHOSPHATE IN 0.9 % NACL 15 MMOL in SODIUM CHLORIDE 0.9% 250ML 250 ML IV ONE ×2 (10:45)
[2020-07-31] MEDS: FENTANYL 2000MCG/NS 250 250 ML IV SCH ×2 (12:37→19:33)
[2020-07-31 15:09] LABS: ABG HCO3 56 mmol/L (22-26); ABG PCO2 88 mmHg (35-45); ABG PH 7.42 (7.35-7.45); ABG PO2 63 mmHg (80-105); ABG TCO2 50
[2020-07-31] MEDS: ACETAZOLAMIDE 250 MG TAB NG SCH (17:05)
[2020-08-01] VITALS (25 sets, daily range): BP systolic 113–140; BP diastolic 44–70
[2020-08-01] MEDS: MEROPENEM 500MG/ NS 50ML 50 ML IV SCH ×4 (01:30→20:00)
[2020-08-01 06:15] LABS: BASOPHILS # (AUTO) 0.1 (0.0-0.1); BASOPHILS % 1.2 % (0.0-1.0); EOSINOPHILS # (AUTO) 0.8 (0.0-0.4); EOSINOPHILS % 6.7 % (0.0-6.0); HEMATOCRIT 28.5 % (34.2-44.1); HEMOGLOBIN 8.2 g/dL (12.0-16.0); LYMPHOCYTES # (AUTO) 1.5 (1.0-3.2); LYMPHOCYTES % 13.4 % (18.0-39.1); MEAN CORPUSCULAR HEMOGLOBIN 29.9 pg (28-32); MEAN CORPUSCULAR HGB CONC 28.8 g/dL (31-35); MONOCYTES % 8.6 % (4.4-11.3); NEUTROPHILS # (AUTO) 6.6 (2.1-6.9); NEUTROPHILS % 58.8 % (38.7-80.0); PLATELET COUNT 269 x10e3/uL (140-360); RED BLOOD COUNT 2.74 x10e6/uL (3.6-5.1); RED CELL DISTRIBUTION WIDTH 17.9 % (11.7-14.4)
[2020-08-01 06:46] LABS: ALANINE AMINOTRANSFERASE 511 IU/L (0-55); ALBUMIN 2.4 g/dL (3.5-5.0); ALBUMIN/GLOBULIN RATIO 0.6 (0.8-2.0); ALKALINE PHOSPHATASE 195 IU/L (40-150); BLOOD UREA NITROGEN 22 mg/dL (7-26); BUN/CREATININE RATIO 50 (6-25); CALCIUM 8.1 mg/dL (8.4-10.2); CHLORIDE 90 mmol/L (98-107); CREATININE, SERUM 0.44 mg/dL (0.57-1.11); EST GLOMERULAR FILTRATION RATE > 60 ML/MIN (60-); GLUCOSE 127 mg/dL (74-118); SODIUM 145 mmol/L (136-145)
[2020-08-01 06:48] LABS: CARBON DIOXIDE 47 mmol/L (22-29)
[2020-08-01 08:01] LABS: BAND NEUTROPHILS % (MANUAL) 2 %; EOSINOPHILS % (MANUAL) 8 % (0-7); LYMPHOCYTES % (MANUAL) 12 % (19-48); MONOCYTES % (MANUAL) 9 % (3.4-9.0); MYELOCYTES % (MANUAL) 7 % (0-0); NEUTROPHILS % (MANUAL) 62 % (40-74); NUCLEATED RED BLOOD CELLS 3
[2020-08-01 08:02] LABS: ANISOCYTOSIS SLIGHT; HYPOCHROMASIA SLIGHT; PLATELET ESTIMATE ADEQUATE; PLATELET MORPHOLOGY COMMENT NORMAL; RBC MORPHOLOGY COMMENT NORMAL
[2020-08-01 08:28] LABS: ABG HCO3 51 mmol/L (22-26); ABG PCO2 108 mmHg (35-45); ABG PH 7.28 (7.35-7.45); ABG PO2 77 mmHg (80-105); ABG TCO2 50
[2020-08-01] MEDS ORDERED: FUROSEMIDE INJ 10 MG/ML 4 ML VIAL IV NR (08:30)
[2020-08-01] MEDS: FUROSEMIDE INJ 10 MG/ML 4 ML VIAL IV SCH ×3 (09:00→21:34)
[2020-08-01] MEDS: DOCUSATE SODIUM LIQD 100 MG/10 ML UDC NG SCH (09:08)
[2020-08-01] MEDS: KCL 20 MEQ PACKET/ ORAL SOLN NG SCH (09:09)
[2020-08-01] MEDS: ASPIRIN 81 MG CHEW TAB PO SCH (09:09)
[2020-08-01] MEDS: ZINC SULFATE 220 MG CAP PO SCH (09:09)
[2020-08-01] MEDS: ASCORBIC ACID 500 MG TAB PO SCH (09:09)
[2020-08-01] MEDS: EYE LUBRICANT OPTH OINT 3.5GM TUBE OP SCH (09:09)
[2020-08-01] MEDS: ACETAZOLAMIDE 250 MG TAB NG SCH ×2 (09:09→16:37)
[2020-08-01] MEDS: HEPARIN 25,000 UNIT 900 UNIT in DEXTROSE 5% 250ML 250 ML IV SCH (09:15)
[2020-08-01] MEDS: FENTANYL 2000MCG/NS 250 250 ML IV SCH ×2 (09:30→16:55)
[2020-08-01] MEDS: MIDAZOLAM HCL 5MG/ML 10ML VIAL 100 ML IV SCH ×3 (09:31→18:40)
[2020-08-01 15:14] LABS: ABG PCO2 94 mmHg (35-45); ABG PH 7.39 (7.35-7.45)
[2020-08-01 15:15] LABS: ABG HCO3 57 mmol/L (22-26); ABG PO2 84 mmHg (80-105); ABG TCO2 50
[2020-08-01] MEDS: ROCURONIUM BROMIDE 1,250 MG in SODIUM CHLORIDE 0.9% 250ML 125 ML IV SCH (16:37)
[2020-08-02] VITALS (26 sets, daily range): BP systolic 118–160; BP diastolic 64–84
[2020-08-02] MEDS: MEROPENEM 500MG/ NS 50ML 50 ML IV SCH ×3 (02:15→13:53)
[2020-08-02 06:19] LABS: BASOPHILS # (AUTO) 0.1 (0.0-0.1); BASOPHILS % 1.3 % (0.0-1.0); EOSINOPHILS # (AUTO) 0.4 (0.0-0.4); EOSINOPHILS % 3.8 % (0.0-6.0); HEMATOCRIT 29.1 % (34.2-44.1); HEMOGLOBIN 8.1 g/dL (12.0-16.0); LYMPHOCYTES # (AUTO) 1.7 (1.0-3.2); LYMPHOCYTES % 17.1 % (18.0-39.1); MEAN CORPUSCULAR HEMOGLOBIN 29.7 pg (28-32); MEAN CORPUSCULAR HGB CONC 27.8 g/dL (31-35); MEAN CORPUSCULAR VOLUME 106.6 fL (81-99); MONOCYTES % 10.5 % (4.4-11.3); NEUTROPHILS # (AUTO) 5.6 (2.1-6.9); NEUTROPHILS % 56.4 % (38.7-80.0); PLATELET COUNT 272 x10e3/uL (140-360); RED BLOOD COUNT 2.73 x10e6/uL (3.6-5.1); RED CELL DISTRIBUTION WIDTH 18.1 % (11.7-14.4)
[2020-08-02 06:36] LABS: ABG PCO2 110 mmHg (35-45); ABG PO2 87 mmHg (80-105)
[2020-08-02 06:37] LABS: ABG HCO3 55 mmol/L (22-26); ABG TCO2 50
[2020-08-02 06:49] LABS: ALANINE AMINOTRANSFERASE 404 IU/L (0-55); ALBUMIN 2.4 g/dL (3.5-5.0); ALBUMIN/GLOBULIN RATIO 0.6 (0.8-2.0); ALKALINE PHOSPHATASE 174 IU/L (40-150); ANION GAP 9.9 mmol/L (8-16); BLOOD UREA NITROGEN 20 mg/dL (7-26); BUN/CREATININE RATIO 53 (6-25); CHLORIDE 92 mmol/L (98-107); CREATININE, SERUM 0.38 mg/dL (0.57-1.11); EST GLOMERULAR FILTRATION RATE > 60 ML/MIN (60-); GLUCOSE 92 mg/dL (74-118); POTASSIUM 3.9 mmol/L (3.5-5.1); SODIUM 145 mmol/L (136-145)
[2020-08-02 06:50] LABS: CARBON DIOXIDE 47 mmol/L (22-29)
[2020-08-02 07:10] LABS: MAGNESIUM 1.9 MG/DL (1.3-2.1)
[2020-08-02] MEDS: HEPARIN 25,000 UNIT 900 UNIT in DEXTROSE 5% 250ML 250 ML IV SCH ×2 (09:15→18:43)
[2020-08-02] MEDS: ASPIRIN 81 MG CHEW TAB PO SCH (09:36)
[2020-08-02] MEDS: EYE LUBRICANT OPTH OINT 3.5GM TUBE OP SCH (09:36)
[2020-08-02] MEDS: ZINC SULFATE 220 MG CAP PO SCH (09:36)
[2020-08-02] MEDS: FUROSEMIDE INJ 10 MG/ML 4 ML VIAL IV SCH ×2 (09:36→21:30)
[2020-08-02] MEDS: DOCUSATE SODIUM LIQD 100 MG/10 ML UDC NG SCH (09:36)
[2020-08-02] MEDS: ASCORBIC ACID 500 MG TAB PO SCH (09:36)
[2020-08-02] MEDS: ACETAZOLAMIDE 250 MG TAB NG SCH ×2 (09:36→17:10)
[2020-08-02] MEDS: KCL 20 MEQ PACKET/ ORAL SOLN NG SCH (09:36)
[2020-08-02] MEDS: LEVOTHYROXINE SODIUM 100 MCG/VIAL IV SCH (10:11)
[2020-08-02] MEDS: LABETALOL HCL 5 MG/ML 20ML VIAL IV PRN (10:11)
[2020-08-02] MEDS: MIDAZOLAM HCL 5MG/ML 10ML VIAL 100 ML IV SCH ×3 (10:19→20:27)
[2020-08-02 12:02] LABS: BAND NEUTROPHILS % (MANUAL) 3 %; EOSINOPHILS % (MANUAL) 9 % (0-7); HYPOCHROMASIA MODERATE; LYMPHOCYTES % (MANUAL) 12 % (19-48); METAMYELOCYTES % (MANUAL) 1 % (0-0); MONOCYTES % (MANUAL) 3 % (3.4-9.0); NEUTROPHILS % (MANUAL) 65 % (40-74); NUCLEATED RED BLOOD CELLS 5; PROMYELOCYTES % (MANUAL) 7 % (0-0); STOMATOCYTES MODERATE
[2020-08-02 12:03] LABS: PLATELET ESTIMATE ADEQUATE; PLATELET MORPHOLOGY COMMENT NORMAL; RBC MORPHOLOGY COMMENT ABNORMAL
[2020-08-02] MEDS: FENTANYL 2000MCG/NS 250 250 ML IV SCH ×2 (12:09→18:43)
[2020-08-02] MEDS ORDERED: FENTANYL 2,000 MCG/250 ML BAG ONE (12:35)
[2020-08-02] MEDS ORDERED: MIDAZOLAM HCL 5MG/ML 10ML VIAL 100 ML BAG IV ONE (12:35)
[2020-08-02] MEDS ORDERED: PROPOFOL IV EMULSION 10MG/ML 100ML BTL ONE (12:35)
[2020-08-02] MEDS: ROCURONIUM BROMIDE 1,250 MG in SODIUM CHLORIDE 0.9% 250ML 125 ML IV SCH (17:12)
[2020-08-03] VITALS (29 sets, daily range): BP systolic 109–176; BP diastolic 51–85
[2020-08-03] MEDS: ACETAMINOPHEN 325 MG TAB PO PRN ×2 (01:39→23:41)
[2020-08-03] MEDS: FENTANYL 2000MCG/NS 250 250 ML IV SCH ×4 (01:39→22:47)
[2020-08-03] MEDS: MIDAZOLAM HCL 5MG/ML 10ML VIAL 100 ML IV SCH ×5 (01:39→23:40)
[2020-08-03] MEDS ORDERED: PROPOFOL IV EMULSION 10MG/ML 100 ML IV PRN (05:15)
[2020-08-03 06:34] LABS: BASOPHILS # (AUTO) 0.1 (0.0-0.1); BASOPHILS % 1.2 % (0.0-1.0); EOSINOPHILS # (AUTO) 0.4 (0.0-0.4); EOSINOPHILS % 3.9 % (0.0-6.0); HEMATOCRIT 29.7 % (34.2-44.1); HEMOGLOBIN 8.3 g/dL (12.0-16.0); LYMPHOCYTES # (AUTO) 1.6 (1.0-3.2); MEAN CORPUSCULAR HEMOGLOBIN 30.4 pg (28-32); MEAN CORPUSCULAR HGB CONC 27.9 g/dL (31-35); MEAN CORPUSCULAR VOLUME 108.8 fL (81-99); MONOCYTES # (AUTO) 0.9 (0.2-0.8); MONOCYTES % 9.3 % (4.4-11.3); NEUTROPHILS % 60.9 % (38.7-80.0); PLATELET COUNT 315 x10e3/uL (140-360); RED BLOOD COUNT 2.73 x10e6/uL (3.6-5.1); RED CELL DISTRIBUTION WIDTH 17.8 % (11.7-14.4)
[2020-08-03 06:58] LABS: ALANINE AMINOTRANSFERASE 309 IU/L (0-55); ALBUMIN 2.5 g/dL (3.5-5.0); ALBUMIN/GLOBULIN RATIO 0.6 (0.8-2.0); ALKALINE PHOSPHATASE 166 IU/L (40-150); ANION GAP 11.9 mmol/L (8-16); BLOOD UREA NITROGEN 22 mg/dL (7-26); BUN/CREATININE RATIO 46 (6-25); CALCIUM 8.6 mg/dL (8.4-10.2); CHLORIDE 89 mmol/L (98-107); CREATININE, SERUM 0.48 mg/dL (0.57-1.11); EST GLOMERULAR FILTRATION RATE > 60 ML/MIN (60-); GLUCOSE 125 mg/dL (74-118); POTASSIUM 3.9 mmol/L (3.5-5.1); SODIUM 142 mmol/L (136-145)
[2020-08-03 07:01] LABS: CARBON DIOXIDE 45 mmol/L (22-29)
[2020-08-03] MEDS: ACETAZOLAMIDE 250 MG TAB NG SCH ×2 (08:29→17:34)
[2020-08-03] MEDS: ASPIRIN 81 MG CHEW TAB PO SCH (08:29)
[2020-08-03] MEDS: ASCORBIC ACID 500 MG TAB PO SCH (08:29)
[2020-08-03] MEDS: EYE LUBRICANT OPTH OINT 3.5GM TUBE OP SCH (08:29)
[2020-08-03] MEDS: ZINC SULFATE 220 MG CAP PO SCH (08:29)
[2020-08-03] MEDS: KCL 20 MEQ PACKET/ ORAL SOLN NG SCH (08:29)
[2020-08-03] MEDS: DOCUSATE SODIUM LIQD 100 MG/10 ML UDC NG SCH (08:29)
[2020-08-03] MEDS: FUROSEMIDE INJ 10 MG/ML 4 ML VIAL IV SCH ×2 (08:29→21:00)
[2020-08-03] MEDS: LABETALOL HCL 5 MG/ML 20ML VIAL IV PRN ×2 (08:31→23:46)
[2020-08-03] MEDS: IBUPROFEN 100 MG/5 ML SUSP PO PRN (08:31)
[2020-08-03] MEDS: ROCURONIUM BROMIDE 1,250 MG in SODIUM CHLORIDE 0.9% 250ML 125 ML IV SCH (08:44)
[2020-08-03 08:55] LABS: ABG PCO2 105 mmHg (35-45); ABG PH 7.31 (7.35-7.45)
[2020-08-03 08:56] LABS: ABG HCO3 53 mmol/L (22-26); ABG PO2 82 mmHg (80-105); ABG TCO2 50
[2020-08-03] MEDS: HEPARIN 25,000 UNIT 900 UNIT in DEXTROSE 5% 250ML 250 ML IV SCH ×2 (09:05→17:35)
[2020-08-03] MEDS: ALBUMIN 25% 25GM 100ML 0.25 GM/ML BTL IV SCH ×2 (14:00→22:45)
[2020-08-03 15:53] LABS: ABG HCO3 52 mmol/L (22-26); ABG PCO2 92 mmHg (35-45); ABG PH 7.36 (7.35-7.45); ABG PO2 69 mmHg (80-105); ABG TCO2 50
[2020-08-03] MEDS ORDERED: MAGNESIUM HYDROXIDE 30 ML UDC PO ONE (16:00)
[2020-08-04] VITALS (20 sets, daily range): BP systolic 116–169; BP diastolic 59–79
[2020-08-04] MEDS: ALBUMIN 25% 25GM 100ML 0.25 GM/ML BTL IV SCH (05:34)
[2020-08-04] MEDS: FENTANYL 2000MCG/NS 250 250 ML IV SCH ×3 (06:24→19:15)
[2020-08-04] MEDS: MIDAZOLAM HCL 5MG/ML 10ML VIAL 100 ML IV SCH ×3 (06:25→21:10)
[2020-08-04 07:06] LABS: BASOPHILS # (AUTO) 0.1 (0.0-0.1); BASOPHILS % 0.9 % (0.0-1.0); EOSINOPHILS # (AUTO) 0.2 (0.0-0.4); EOSINOPHILS % 2.4 % (0.0-6.0); HEMATOCRIT 26.7 % (34.2-44.1); HEMOGLOBIN 7.4 g/dL (12.0-16.0); LYMPHOCYTES # (AUTO) 1.6 (1.0-3.2); LYMPHOCYTES % 19.8 % (18.0-39.1); MEAN CORPUSCULAR HEMOGLOBIN 30.1 pg (28-32); MEAN CORPUSCULAR HGB CONC 27.7 g/dL (31-35); MEAN CORPUSCULAR VOLUME 108.5 fL (81-99); MONOCYTES # (AUTO) 0.8 (0.2-0.8); MONOCYTES % 9.8 % (4.4-11.3); NEUTROPHILS # (AUTO) 4.9 (2.1-6.9); NEUTROPHILS % 61.2 % (38.7-80.0); PLATELET COUNT 300 x10e3/uL (140-360); RED BLOOD COUNT 2.46 x10e6/uL (3.6-5.1); RED CELL DISTRIBUTION WIDTH 17.9 % (11.7-14.4)
[2020-08-04 07:27] LABS: ALANINE AMINOTRANSFERASE 205 IU/L (0-55); ALBUMIN 3.6 g/dL (3.5-5.0); ALKALINE PHOSPHATASE 132 IU/L (40-150); ANION GAP 11.6 mmol/L (8-16); BLOOD UREA NITROGEN 22 mg/dL (7-26); BUN/CREATININE RATIO 47 (6-25); CALCIUM 8.7 mg/dL (8.4-10.2); CHLORIDE 91 mmol/L (98-107); CREATININE, SERUM 0.47 mg/dL (0.57-1.11); EST GLOMERULAR FILTRATION RATE > 60 ML/MIN (60-); GLUCOSE 118 mg/dL (74-118); MAGNESIUM 2.2 MG/DL (1.3-2.1); PHOSPHORUS 3.1 MG/DL (2.3-4.7); POTASSIUM 3.6 mmol/L (3.5-5.1); SODIUM 146 mmol/L (136-145)
[2020-08-04 07:34] LABS: CARBON DIOXIDE 47 mmol/L (22-29)
[2020-08-04] MEDS ORDERED: FENTANYL 2000MCG/NS 250 250 ML IV SCH (07:45)
[2020-08-04 07:58] LABS: ABG HCO3 49 mmol/L (22-26); ABG PCO2 94 mmHg (35-45); ABG PH 7.33 (7.35-7.45); ABG PO2 61 mmHg (80-105); ABG TCO2 50
[2020-08-04] MEDS: ACETAZOLAMIDE 250 MG TAB NG SCH ×2 (09:05→17:41)
[2020-08-04] MEDS: ASPIRIN 81 MG CHEW TAB PO SCH (09:05)
[2020-08-04] MEDS: DOCUSATE SODIUM LIQD 100 MG/10 ML UDC NG SCH (09:05)
[2020-08-04] MEDS: ASCORBIC ACID 500 MG TAB PO SCH (09:05)
[2020-08-04] MEDS: EYE LUBRICANT OPTH OINT 3.5GM TUBE OP SCH (09:05)
[2020-08-04] MEDS: FUROSEMIDE INJ 10 MG/ML 4 ML VIAL IV SCH ×2 (09:05→21:09)
[2020-08-04] MEDS: KCL 20 MEQ PACKET/ ORAL SOLN NG SCH (09:05)
[2020-08-04] MEDS: ZINC SULFATE 220 MG CAP PO SCH (09:06)
[2020-08-04] MEDS: LEVOTHYROXINE SODIUM 100 MCG/VIAL IV SCH (09:06)
[2020-08-04] MEDS: ACETAMINOPHEN 325 MG TAB PO PRN ×3 (09:33→17:51)
[2020-08-04 11:33] LABS: BAND NEUTROPHILS % (MANUAL) 2 %; EOSINOPHILS % (MANUAL) 2 % (0-7); LYMPHOCYTES % (MANUAL) 17 % (19-48); MONOCYTES % (MANUAL) 7 % (3.4-9.0); MYELOCYTES % (MANUAL) 4 % (0-0); NEUTROPHILS % (MANUAL) 67 % (40-74); NUCLEATED RED BLOOD CELLS 3; PLATELET ESTIMATE ADEQUATE; PLATELET MORPHOLOGY COMMENT FEW LARGE; POLYCHROMASIA FEW; RBC MORPHOLOGY COMMENT ABNORMAL
[2020-08-04 11:34] LABS: HYPOCHROMASIA SLIGHT; STOMATOCYTES SLIGHT
[2020-08-04] MEDS: HEPARIN 25,000 UNIT 900 UNIT in DEXTROSE 5% 250ML 250 ML IV SCH (14:31)
[2020-08-04] MEDS ORDERED: MIDAZOLAM HCL 50 MG in SODIUM CHLORIDE 0.9% 100 ML 90 ML IV PRN (14:45)
[2020-08-04] MEDS: ROCURONIUM BROMIDE 1,250 MG in SODIUM CHLORIDE 0.9% 250ML 125 ML IV SCH (16:14)
[2020-08-04 16:45] LABS: ABG HCO3 52 mmol/L (22-26); ABG PCO2 108 mmHg (35-45); ABG PH 7.29 (7.35-7.45); ABG PO2 60 mmHg (80-105); ABG TCO2 50
[2020-08-05] VITALS (24 sets, daily range): BP systolic 101–175; BP diastolic 59–87
[2020-08-05] MEDS: FENTANYL 2000MCG/NS 250 250 ML IV SCH ×4 (02:30→21:00)
[2020-08-05] MEDS: MIDAZOLAM HCL 5MG/ML 10ML VIAL 100 ML IV SCH ×5 (02:30→20:45)
[2020-08-05 07:02] LABS: BASOPHILS # (AUTO) 0.1 (0.0-0.1); BASOPHILS % 1.2 % (0.0-1.0); EOSINOPHILS # (AUTO) 0.2 (0.0-0.4); EOSINOPHILS % 2.9 % (0.0-6.0); HEMATOCRIT 27.8 % (34.2-44.1); HEMOGLOBIN 7.7 g/dL (12.0-16.0); LYMPHOCYTES # (AUTO) 1.4 (1.0-3.2); LYMPHOCYTES % 17.4 % (18.0-39.1); MEAN CORPUSCULAR HEMOGLOBIN 30.1 pg (28-32); MEAN CORPUSCULAR HGB CONC 27.7 g/dL (31-35); MEAN CORPUSCULAR VOLUME 108.6 fL (81-99); MONOCYTES # (AUTO) 0.9 (0.2-0.8); MONOCYTES % 10.4 % (4.4-11.3); NEUTROPHILS # (AUTO) 5.1 (2.1-6.9); PLATELET COUNT 305 x10e3/uL (140-360); RED BLOOD COUNT 2.56 x10e6/uL (3.6-5.1); RED CELL DISTRIBUTION WIDTH 18.3 % (11.7-14.4)
[2020-08-05 07:29] LABS: ABG HCO3 54 mmol/L (22-26); ABG PCO2 101 mmHg (35-45); ABG PH 7.33 (7.35-7.45); ABG PO2 59 mmHg (80-105); ABG TCO2 50
[2020-08-05 08:05] LABS: PHOSPHORUS 2.8 MG/DL (2.3-4.7)
[2020-08-05 08:38] LABS: ALANINE AMINOTRANSFERASE 169 IU/L (0-55); ALBUMIN 3.3 g/dL (3.5-5.0); ALBUMIN/GLOBULIN RATIO 0.9 (0.8-2.0); ALKALINE PHOSPHATASE 134 IU/L (40-150); ANION GAP 14.6 mmol/L (8-16); BLOOD UREA NITROGEN 21 mg/dL (7-26); BUN/CREATININE RATIO 46 (6-25); CALCIUM 8.3 mg/dL (8.4-10.2); CHLORIDE 90 mmol/L (98-107); CREATININE, SERUM 0.46 mg/dL (0.57-1.11); EST GLOMERULAR FILTRATION RATE > 60 ML/MIN (60-); GLUCOSE 154 mg/dL (74-118); POTASSIUM 3.6 mmol/L (3.5-5.1); SODIUM 145 mmol/L (136-145)
[2020-08-05 08:40] LABS: CARBON DIOXIDE 44 mmol/L (22-29)
[2020-08-05] MEDS: KCL 20 MEQ PACKET/ ORAL SOLN NG SCH (10:09)
[2020-08-05] MEDS: FUROSEMIDE INJ 10 MG/ML 4 ML VIAL IV SCH ×2 (10:09→20:06)
[2020-08-05] MEDS: ACETAZOLAMIDE 250 MG TAB NG SCH ×2 (10:09→17:28)
[2020-08-05] MEDS: DOCUSATE SODIUM LIQD 100 MG/10 ML UDC NG SCH (10:09)
[2020-08-05] MEDS: EYE LUBRICANT OPTH OINT 3.5GM TUBE OP SCH (10:09)
[2020-08-05] MEDS: ASPIRIN 81 MG CHEW TAB PO SCH (10:09)
[2020-08-05] MEDS: ASCORBIC ACID 500 MG TAB PO SCH (10:10)
[2020-08-05] MEDS: ZINC SULFATE 220 MG CAP PO SCH (10:10)
[2020-08-05 11:05] LABS: BAND NEUTROPHILS % (MANUAL) 4 %; EOSINOPHILS % (MANUAL) 2 % (0-7); LYMPHOCYTES % (MANUAL) 14 % (19-48); MONOCYTES % (MANUAL) 5 % (3.4-9.0); MYELOCYTES % (MANUAL) 4 % (0-0); NEUTROPHILS % (MANUAL) 70 % (40-74); NUCLEATED RED BLOOD CELLS 4; PLATELET ESTIMATE ADEQUATE; POLYCHROMASIA FEW; RBC MORPHOLOGY COMMENT ABNORMAL
[2020-08-05 11:07] LABS: HYPOCHROMASIA SLIGHT; PLATELET MORPHOLOGY COMMENT FEW LARGE; STOMATOCYTES SLIGHT
[2020-08-05 16:45] LABS: ABG HCO3 54 mmol/L (22-26); ABG PCO2 114 mmHg (35-45); ABG PH 7.29 (7.35-7.45); ABG PO2 64 mmHg (80-105); ABG TCO2 50
[2020-08-05] MEDS: ROCURONIUM BROMIDE 1,250 MG in SODIUM CHLORIDE 0.9% 250ML 125 ML IV SCH (17:29)
[2020-08-05] MEDS: LABETALOL HCL 5 MG/ML 20ML VIAL IV PRN (21:00)
[2020-08-06] VITALS (25 sets, daily range): BP systolic 124–176; BP diastolic 62–86
[2020-08-06] MEDS: MIDAZOLAM HCL 5MG/ML 10ML VIAL 100 ML IV SCH ×3 (03:00→14:32)
[2020-08-06] MEDS: FENTANYL 2000MCG/NS 250 250 ML IV SCH ×3 (03:40→18:06)
[2020-08-06 06:14] LABS: BASOPHILS # (AUTO) 0.1 (0.0-0.1); BASOPHILS % 1.2 % (0.0-1.0); EOSINOPHILS # (AUTO) 0.3 (0.0-0.4); EOSINOPHILS % 3.3 % (0.0-6.0); HEMATOCRIT 29.2 % (34.2-44.1); HEMOGLOBIN 8.3 g/dL (12.0-16.0); LYMPHOCYTES # (AUTO) 1.2 (1.0-3.2); LYMPHOCYTES % 12.6 % (18.0-39.1); MEAN CORPUSCULAR HEMOGLOBIN 30.7 pg (28-32); MEAN CORPUSCULAR HGB CONC 28.4 g/dL (31-35); MEAN CORPUSCULAR VOLUME 108.1 fL (81-99); MONOCYTES # (AUTO) 0.9 (0.2-0.8); MONOCYTES % 9.7 % (4.4-11.3); NEUTROPHILS # (AUTO) 6.3 (2.1-6.9); NEUTROPHILS % 68.2 % (38.7-80.0); PLATELET COUNT 354 x10e3/uL (140-360); RED CELL DISTRIBUTION WIDTH 18.5 % (11.7-14.4)
[2020-08-06 06:40] LABS: ALANINE AMINOTRANSFERASE 130 IU/L (0-55); ALBUMIN 3.2 g/dL (3.5-5.0); ALBUMIN/GLOBULIN RATIO 0.8 (0.8-2.0); ALKALINE PHOSPHATASE 128 IU/L (40-150); ANION GAP 10.6 mmol/L (8-16); BLOOD UREA NITROGEN 22 mg/dL (7-26); BUN/CREATININE RATIO 46 (6-25); CALCIUM 8.6 mg/dL (8.4-10.2); CHLORIDE 88 mmol/L (98-107); CREATININE, SERUM 0.48 mg/dL (0.57-1.11); EST GLOMERULAR FILTRATION RATE > 60 ML/MIN (60-); GLUCOSE 178 mg/dL (74-118); POTASSIUM 3.6 mmol/L (3.5-5.1); SODIUM 144 mmol/L (136-145)
[2020-08-06 07:00] LABS: CARBON DIOXIDE 49 mmol/L (22-29)
[2020-08-06 07:45] LABS: ABG PH 7.27 (7.35-7.45)
[2020-08-06 07:46] LABS: ABG HCO3 52 mmol/L (22-26); ABG PCO2 112 mmHg (35-45); ABG PO2 75 mmHg (80-105); ABG TCO2 50
[2020-08-06] MEDS: FUROSEMIDE INJ 10 MG/ML 4 ML VIAL IV SCH ×2 (08:03→20:21)
[2020-08-06] MEDS: DOCUSATE SODIUM LIQD 100 MG/10 ML UDC NG SCH (08:03)
[2020-08-06] MEDS: EYE LUBRICANT OPTH OINT 3.5GM TUBE OP SCH (08:03)
[2020-08-06] MEDS: ACETAZOLAMIDE 250 MG TAB NG SCH ×2 (08:03→16:06)
[2020-08-06] MEDS: KCL 20 MEQ PACKET/ ORAL SOLN NG SCH (08:03)
[2020-08-06] MEDS: ASPIRIN 81 MG CHEW TAB PO SCH (08:04)
[2020-08-06] MEDS: LABETALOL HCL 5 MG/ML 20ML VIAL IV PRN (08:18)
[2020-08-06 08:30] LABS: LYMPHOCYTES % (MANUAL) 15 % (19-48); MONOCYTES % (MANUAL) 9 % (3.4-9.0); NEUTROPHILS % (MANUAL) 76 % (40-74)
[2020-08-06] MEDS: LEVOTHYROXINE SODIUM 100 MCG/VIAL IV SCH (09:11)
[2020-08-06] MEDS: HEPARIN 25,000 UNIT 25,000 UNIT in DEXTROSE 5% 250ML 250 ML IV SCH (10:39)
[2020-08-06] MEDS: ROCURONIUM BROMIDE 1,250 MG in SODIUM CHLORIDE 0.9% 250ML 125 ML IV SCH (16:07)
[2020-08-07] VITALS (24 sets, daily range): BP systolic 106–164; BP diastolic 49–96
[2020-08-07 06:17] LABS: BASOPHILS # (AUTO) 0.1 (0.0-0.1); BASOPHILS % 0.7 % (0.0-1.0); EOSINOPHILS # (AUTO) 0.2 (0.0-0.4); EOSINOPHILS % 2.2 % (0.0-6.0); HEMOGLOBIN 7.6 g/dL (12.0-16.0); LYMPHOCYTES # (AUTO) 0.8 (1.0-3.2); LYMPHOCYTES % 11.7 % (18.0-39.1); MEAN CORPUSCULAR HEMOGLOBIN 30.4 pg (28-32); MEAN CORPUSCULAR HGB CONC 28.1 g/dL (31-35); MONOCYTES # (AUTO) 0.7 (0.2-0.8); MONOCYTES % 9.6 % (4.4-11.3); NEUTROPHILS # (AUTO) 4.9 (2.1-6.9); NEUTROPHILS % 70.8 % (38.7-80.0); PLATELET COUNT 331 x10e3/uL (140-360); RED CELL DISTRIBUTION WIDTH 18.4 % (11.7-14.4)
[2020-08-07 06:50] LABS: ALANINE AMINOTRANSFERASE 91 IU/L (0-55); ALBUMIN 2.8 g/dL (3.5-5.0); ALBUMIN/GLOBULIN RATIO 0.9 (0.8-2.0); ALKALINE PHOSPHATASE 111 IU/L (40-150); ANION GAP 9.4 mmol/L (8-16); BLOOD UREA NITROGEN 22 mg/dL (7-26); BUN/CREATININE RATIO 49 (6-25); CALCIUM 7.9 mg/dL (8.4-10.2); CHLORIDE 88 mmol/L (98-107); CREATININE, SERUM 0.45 mg/dL (0.57-1.11); EST GLOMERULAR FILTRATION RATE > 60 ML/MIN (60-); GLUCOSE 212 mg/dL (74-118); POTASSIUM 3.4 mmol/L (3.5-5.1); SODIUM 142 mmol/L (136-145)
[2020-08-07 07:00] LABS: CARBON DIOXIDE 48 mmol/L (22-29)
[2020-08-07 08:02] LABS: ABG HCO3 54 mmol/L (22-26); ABG PCO2 109 mmHg (35-45); ABG PO2 83 mmHg (80-105); ABG TCO2 50
[2020-08-07] MEDS: KCL 20 MEQ PACKET/ ORAL SOLN NG SCH (08:11)
[2020-08-07] MEDS: DOCUSATE SODIUM LIQD 100 MG/10 ML UDC NG SCH (08:11)
[2020-08-07] MEDS: ASPIRIN 81 MG CHEW TAB PO SCH (08:11)
[2020-08-07] MEDS: FUROSEMIDE INJ 10 MG/ML 4 ML VIAL IV SCH ×2 (08:11→21:11)
[2020-08-07] MEDS: EYE LUBRICANT OPTH OINT 3.5GM TUBE OP SCH (08:11)
[2020-08-07] MEDS: LABETALOL HCL 5 MG/ML 20ML VIAL IV PRN ×2 (09:01→14:04)
[2020-08-07] MEDS: HEPARIN 25,000 UNIT 25,000 UNIT in DEXTROSE 5% 250ML 250 ML IV SCH (09:59)
[2020-08-07] MEDS: MIDAZOLAM HCL 5MG/ML 10ML VIAL 100 ML IV SCH ×2 (10:50→17:30)
[2020-08-07] MEDS ORDERED: FENTANYL 2,000 MCG/250 ML BAG ONE (12:03)
[2020-08-07] MEDS ORDERED: MIDAZOLAM HCL 5MG/ML 10ML VIAL 100 ML BAG IV ONE (12:03)
[2020-08-07] MEDS: FENTANYL 2000MCG/NS 250 250 ML IV SCH (13:22)
[2020-08-07 15:21] LABS: ABG HCO3 55 mmol/L (22-26); ABG PCO2 84 mmHg (35-45); ABG PH 7.43 (7.35-7.45); ABG PO2 66 mmHg (80-105); ABG TCO2 50
[2020-08-07] MEDS: HYDRALAZINE HCL 20 MG/ML VIAL IV PRN (17:15)
[2020-08-07] MEDS: ROCURONIUM BROMIDE 1,250 MG in SODIUM CHLORIDE 0.9% 250ML 125 ML IV SCH (17:15)
[2020-08-07] MEDS: PROPOFOL IV EMULSION 10MG/ML 100 ML IV SCH (18:10)
[2020-08-08] VITALS (24 sets, daily range): BP systolic 117–145; BP diastolic 54–72
[2020-08-08 06:18] LABS: BASOPHILS # (AUTO) 0.1 (0.0-0.1); BASOPHILS % 1.2 % (0.0-1.0); EOSINOPHILS # (AUTO) 0.3 (0.0-0.4); EOSINOPHILS % 3.9 % (0.0-6.0); HEMATOCRIT 26.7 % (34.2-44.1); HEMOGLOBIN 7.7 g/dL (12.0-16.0); LYMPHOCYTES # (AUTO) 1.2 (1.0-3.2); LYMPHOCYTES % 17.8 % (18.0-39.1); MEAN CORPUSCULAR HEMOGLOBIN 30.6 pg (28-32); MEAN CORPUSCULAR HGB CONC 28.8 g/dL (31-35); MONOCYTES # (AUTO) 0.6 (0.2-0.8); MONOCYTES % 9.1 % (4.4-11.3); NEUTROPHILS # (AUTO) 4.5 (2.1-6.9); NEUTROPHILS % 65.1 % (38.7-80.0); PLATELET COUNT 367 x10e3/uL (140-360); RED BLOOD COUNT 2.52 x10e6/uL (3.6-5.1); RED CELL DISTRIBUTION WIDTH 18.7 % (11.7-14.4)
[2020-08-08 06:57] LABS: ALANINE AMINOTRANSFERASE 23 IU/L (0-55); ALBUMIN 2.3 g/dL (3.5-5.0); ALBUMIN/GLOBULIN RATIO 0.5 (0.8-2.0); ALKALINE PHOSPHATASE 84 IU/L (40-150); ANION GAP 9.6 mmol/L (8-16); BLOOD UREA NITROGEN 6 mg/dL (7-26); BUN/CREATININE RATIO 13 (6-25); CALCIUM 8.4 mg/dL (8.4-10.2); CHLORIDE 89 mmol/L (98-107); CREATININE, SERUM 0.46 mg/dL (0.57-1.11); EST GLOMERULAR FILTRATION RATE > 60 ML/MIN (60-); GLUCOSE 119 mg/dL (74-118); POTASSIUM 3.6 mmol/L (3.5-5.1); SODIUM 143 mmol/L (136-145)
[2020-08-08 07:23] LABS: CARBON DIOXIDE 48 mmol/L (22-29)
[2020-08-08] MEDS: MIDAZOLAM HCL 5MG/ML 10ML VIAL 100 ML IV SCH ×2 (08:00→14:00)
[2020-08-08 08:02] LABS: ABG HCO3 54 mmol/L (22-26); ABG PCO2 94 mmHg (35-45); ABG PH 7.37 (7.35-7.45); ABG PO2 59 mmHg (80-105); ABG TCO2 > 50
[2020-08-08 08:43] LABS: PLATELET ESTIMATE MARKEDLY DECREASED; PLATELET MORPHOLOGY COMMENT NORMAL
[2020-08-08] MEDS: FUROSEMIDE INJ 10 MG/ML 4 ML VIAL IV SCH (09:53)
[2020-08-08] MEDS: ASPIRIN 81 MG CHEW TAB PO SCH (09:53)
[2020-08-08] MEDS: KCL 20 MEQ PACKET/ ORAL SOLN NG SCH (09:53)
[2020-08-08] MEDS: DOCUSATE SODIUM LIQD 100 MG/10 ML UDC NG SCH (09:53)
[2020-08-08] MEDS: EYE LUBRICANT OPTH OINT 3.5GM TUBE OP SCH (09:53)
[2020-08-08] MEDS: FENTANYL 2000MCG/NS 250 250 ML IV SCH ×2 (10:11→18:29)
[2020-08-08] MEDS: PROPOFOL IV EMULSION 10MG/ML 100 ML IV SCH ×2 (10:12→18:30)
[2020-08-08] MEDS: HEPARIN 25,000 UNIT 25,000 UNIT in DEXTROSE 5% 250ML 250 ML IV SCH (10:12)
[2020-08-08] MEDS: LEVOTHYROXINE SODIUM 100 MCG/VIAL IV SCH (14:35)
[2020-08-08] MEDS: ALBUMIN 25% 25GM 100ML 0.25 GM/ML BTL IV SCH ×2 (16:58→21:21)
[2020-08-08 17:15] LABS: ABG HCO3 57 mmol/L (22-26); ABG PCO2 130 mmHg (35-45); ABG PH 7.25 (7.35-7.45); ABG PO2 97 mmHg (80-105)
[2020-08-08 17:16] LABS: ABG TCO2 > 50
[2020-08-08] MEDS: ROCURONIUM BROMIDE 1,250 MG in SODIUM CHLORIDE 0.9% 250ML 125 ML IV SCH (19:40)
[2020-08-09] VITALS (23 sets, daily range): BP systolic 119–168; BP diastolic 55–98
[2020-08-09] MEDS: ALBUMIN 25% 25GM 100ML 0.25 GM/ML BTL IV SCH ×4 (05:48→21:06)
[2020-08-09] MEDS ORDERED: FUROSEMIDE INJ 10 MG/ML 4 ML VIAL IV SCH (06:00)
[2020-08-09 06:10] LABS: ABG HCO3 63 mmol/L (22-26); ABG PCO2 117 mmHg (35-45); ABG PH 7.34 (7.35-7.45); ABG PO2 46 mmHg (80-105); ABG TCO2 50
[2020-08-09 06:16] LABS: BASOPHILS # (AUTO) 0.1 (0.0-0.1); BASOPHILS % 0.9 % (0.0-1.0); EOSINOPHILS # (AUTO) 0.4 (0.0-0.4); HEMATOCRIT 25.6 % (34.2-44.1); HEMOGLOBIN 7.4 g/dL (12.0-16.0); LYMPHOCYTES % 13.3 % (18.0-39.1); MEAN CORPUSCULAR HEMOGLOBIN 30.5 pg (28-32); MEAN CORPUSCULAR HGB CONC 28.9 g/dL (31-35); MEAN CORPUSCULAR VOLUME 105.3 fL (81-99); MONOCYTES # (AUTO) 0.7 (0.2-0.8); MONOCYTES % 9.4 % (4.4-11.3); NEUTROPHILS # (AUTO) 5.2 (2.1-6.9); NEUTROPHILS % 69.8 % (38.7-80.0); PLATELET COUNT 344 x10e3/uL (140-360); RED BLOOD COUNT 2.43 x10e6/uL (3.6-5.1)
[2020-08-09 06:46] LABS: ALANINE AMINOTRANSFERASE 84 IU/L (0-55); ALBUMIN 4.1 g/dL (3.5-5.0); ALBUMIN/GLOBULIN RATIO 1.1 (0.8-2.0); ALKALINE PHOSPHATASE 92 IU/L (40-150); ANION GAP 16.9 mmol/L (8-16); BLOOD UREA NITROGEN 21 mg/dL (7-26); BUN/CREATININE RATIO 46 (6-25); CALCIUM 8.7 mg/dL (8.4-10.2); CHLORIDE 79 mmol/L (98-107); CREATININE, SERUM 0.46 mg/dL (0.57-1.11); EST GLOMERULAR FILTRATION RATE > 60 ML/MIN (60-); GLUCOSE 169 mg/dL (74-118); POTASSIUM 3.9 mmol/L (3.5-5.1); SODIUM 142 mmol/L (136-145)
[2020-08-09] MEDS ORDERED: VECURONIUM BROMIDE FOR INJ 20 MG VIAL ONE (06:47)
[2020-08-09 06:51] LABS: CARBON DIOXIDE 50 mmol/L (22-29)
[2020-08-09] MEDS ORDERED: ACETAMINOPHEN 325 MG TAB PO STA (07:00)
[2020-08-09] MEDS ORDERED: SODIUM CHLORIDE 0.9% 250ML 250 ML IV ONE (07:00)
[2020-08-09] MEDS: EYE LUBRICANT OPTH OINT 3.5GM TUBE OP SCH (07:48)
[2020-08-09] MEDS: KCL 20 MEQ PACKET/ ORAL SOLN NG SCH (07:48)
[2020-08-09] MEDS: DOCUSATE SODIUM LIQD 100 MG/10 ML UDC NG SCH (07:48)
[2020-08-09] MEDS: MEROPENEM 1GRAM 1 GM in SODIUM CHLORIDE 0.9% 100 ML 100 ML IV SCH ×3 (11:21→21:06)
[2020-08-09] MEDS: MIDAZOLAM HCL 5MG/ML 10ML VIAL 100 ML IV SCH (11:21)
[2020-08-09] MEDS: PROPOFOL IV EMULSION 10MG/ML 100 ML IV SCH ×3 (11:22→18:08)
[2020-08-09] MEDS: FENTANYL 2000MCG/NS 250 250 ML IV SCH (11:26)
[2020-08-09] MEDS: VANCOMYCIN 1GM/NS 250 ML 250 ML IV SCH ×2 (12:11→21:06)
[2020-08-09] MEDS: HEPARIN 25,000 UNIT 25,000 UNIT in DEXTROSE 5% 250ML 250 ML IV SCH (12:11)
[2020-08-09 12:54] LABS: ABG PCO2 > 130 mmHg (35-45); ABG PH 7.22 (7.35-7.45); ABG PO2 64 mmHg (80-105)
[2020-08-09] MEDS: CISATRACURIUM BESYLATE 100 MG in SODIUM CHLORIDE 0.9% 100 ML 100 ML IV PRN (14:46)
[2020-08-09 15:47] LABS: ABG PCO2 111 mmHg (35-45); ABG PH 7.31 (7.35-7.45)
[2020-08-09 15:48] LABS: ABG HCO3 55 mmol/L (22-26); ABG PO2 56 mmHg (80-105); ABG TCO2 > 50
[2020-08-09] MEDS: ROCURONIUM BROMIDE 1,250 MG in SODIUM CHLORIDE 0.9% 250ML 125 ML IV SCH (17:15)
[2020-08-09] MEDS: FUROSEMIDE INJ 10 MG/ML 4 ML VIAL IV SCH (21:06)
[2020-08-10] VITALS (17 sets, daily range): BP systolic 142–176; BP diastolic 68–106
[2020-08-10] MEDS: MEROPENEM 1GRAM 1 GM in SODIUM CHLORIDE 0.9% 100 ML 100 ML IV SCH ×3 (05:25→22:45)
[2020-08-10 06:44] LABS: BASOPHILS # (AUTO) 0.1 (0.0-0.1); BASOPHILS % 1.1 % (0.0-1.0); EOSINOPHILS # (AUTO) 0.2 (0.0-0.4); EOSINOPHILS % 2.2 % (0.0-6.0); HEMATOCRIT 27.6 % (34.2-44.1); HEMOGLOBIN 8.1 g/dL (12.0-16.0); LYMPHOCYTES # (AUTO) 0.9 (1.0-3.2); LYMPHOCYTES % 10.7 % (18.0-39.1); MEAN CORPUSCULAR HEMOGLOBIN 30.9 pg (28-32); MEAN CORPUSCULAR HGB CONC 29.3 g/dL (31-35); MEAN CORPUSCULAR VOLUME 105.3 fL (81-99); MONOCYTES # (AUTO) 0.7 (0.2-0.8); MONOCYTES % 8.7 % (4.4-11.3); NEUTROPHILS # (AUTO) 6.1 (2.1-6.9); PLATELET COUNT 338 x10e3/uL (140-360); RED BLOOD COUNT 2.62 x10e6/uL (3.6-5.1); RED CELL DISTRIBUTION WIDTH 18.9 % (11.7-14.4)
[2020-08-10 07:00] LABS: ALANINE AMINOTRANSFERASE 79 IU/L (0-55); ALBUMIN 4.3 g/dL (3.5-5.0); ALBUMIN/GLOBULIN RATIO 1.3 (0.8-2.0); ALKALINE PHOSPHATASE 103 IU/L (40-150); ANION GAP 15.4 mmol/L (8-16); BLOOD UREA NITROGEN 18 mg/dL (7-26); BUN/CREATININE RATIO 39 (6-25); CALCIUM 8.7 mg/dL (8.4-10.2); CHLORIDE 81 mmol/L (98-107); CREATININE, SERUM 0.46 mg/dL (0.57-1.11); EST GLOMERULAR FILTRATION RATE > 60 ML/MIN (60-); GLUCOSE 105 mg/dL (74-118); POTASSIUM 4.4 mmol/L (3.5-5.1); SODIUM 142 mmol/L (136-145)
[2020-08-10 07:01] LABS: CARBON DIOXIDE 50 mmol/L (22-29)
[2020-08-10] MEDS: MIDAZOLAM HCL 5MG/ML 10ML VIAL 100 ML IV SCH ×4 (07:38→23:15)
[2020-08-10] MEDS: PROPOFOL IV EMULSION 10MG/ML 100 ML IV SCH ×4 (08:00→22:15)
[2020-08-10 09:46] LABS: ABG HCO3 57 mmol/L (22-26); ABG PCO2 101 mmHg (35-45); ABG PH 7.36 (7.35-7.45); ABG PO2 50 mmHg (80-105); ABG TCO2 > 50
[2020-08-10] MEDS: FENTANYL 2000MCG/NS 250 250 ML IV SCH ×2 (09:48→23:15)
[2020-08-10] MEDS: EYE LUBRICANT OPTH OINT 3.5GM TUBE OP SCH (10:28)
[2020-08-10] MEDS: VANCOMYCIN 1GM/NS 250 ML 250 ML IV SCH ×2 (10:28→21:45)
[2020-08-10] MEDS: LEVOTHYROXINE SODIUM 100 MCG/VIAL IV SCH (10:28)
[2020-08-10] MEDS: KCL 20 MEQ PACKET/ ORAL SOLN NG SCH (10:40)
[2020-08-10] MEDS: FUROSEMIDE INJ 10 MG/ML 4 ML VIAL IV SCH ×2 (10:40→21:00)
[2020-08-10] MEDS: DOCUSATE SODIUM LIQD 100 MG/10 ML UDC NG SCH (10:40)
[2020-08-10] MEDS: HEPARIN 25,000 UNIT 25,000 UNIT in DEXTROSE 5% 250ML 250 ML IV SCH (12:38)
[2020-08-10] MEDS: ROCURONIUM BROMIDE 1,250 MG in SODIUM CHLORIDE 0.9% 250ML 125 ML IV SCH (17:15)
[2020-08-10] MEDS: CISATRACURIUM BESYLATE 100 MG in SODIUM CHLORIDE 0.9% 100 ML 100 ML IV PRN (21:34)
[2020-08-10] MEDS: ACETAMINOPHEN 650 MG SUPP PR PRN (22:00)
[2020-08-11] VITALS (24 sets, daily range): BP systolic 94–158; BP diastolic 42–86
[2020-08-11] MEDS: PROPOFOL IV EMULSION 10MG/ML 100 ML IV SCH ×5 (02:04→19:48)
[2020-08-11] MEDS: HEPARIN 25,000 UNIT 25,000 UNIT in DEXTROSE 5% 250ML 250 ML IV SCH ×2 (02:04→23:45)
[2020-08-11] MEDS: CISATRACURIUM BESYLATE 100 MG in SODIUM CHLORIDE 0.9% 100 ML 100 ML IV PRN ×2 (02:04→06:45)
[2020-08-11] MEDS: MIDAZOLAM HCL 5MG/ML 10ML VIAL 100 ML IV SCH (03:55)
[2020-08-11] MEDS: FENTANYL 2000MCG/NS 250 250 ML IV SCH ×2 (05:25→19:48)
[2020-08-11] MEDS: ACETAMINOPHEN 650 MG SUPP PR PRN (06:00)
[2020-08-11] MEDS: MEROPENEM 1GRAM 1 GM in SODIUM CHLORIDE 0.9% 100 ML 100 ML IV SCH ×3 (06:16→22:50)
[2020-08-11 06:20] LABS: BASOPHILS # (AUTO) 0.1 (0.0-0.1); BASOPHILS % 1.5 % (0.0-1.0); EOSINOPHILS # (AUTO) 0.1 (0.0-0.4); EOSINOPHILS % 1.1 % (0.0-6.0); HEMATOCRIT 28.6 % (34.2-44.1); HEMOGLOBIN 8.3 g/dL (12.0-16.0); LYMPHOCYTES # (AUTO) 1.2 (1.0-3.2); MEAN CORPUSCULAR HEMOGLOBIN 30.3 pg (28-32); MEAN CORPUSCULAR VOLUME 104.4 fL (81-99); MONOCYTES % 10.3 % (4.4-11.3); NEUTROPHILS # (AUTO) 6.4 (2.1-6.9); NEUTROPHILS % 69.1 % (38.7-80.0); PLATELET COUNT 403 x10e3/uL (140-360); RED BLOOD COUNT 2.74 x10e6/uL (3.6-5.1); RED CELL DISTRIBUTION WIDTH 18.6 % (11.7-14.4)
[2020-08-11 06:57] LABS: ALANINE AMINOTRANSFERASE 93 IU/L (0-55); ALBUMIN 3.7 g/dL (3.5-5.0); ALBUMIN/GLOBULIN RATIO 1.1 (0.8-2.0); ALKALINE PHOSPHATASE 137 IU/L (40-150); ANION GAP 15.4 mmol/L (8-16); BLOOD UREA NITROGEN 19 mg/dL (7-26); BUN/CREATININE RATIO 39 (6-25); CALCIUM 8.3 mg/dL (8.4-10.2); CHLORIDE 81 mmol/L (98-107); CREATININE, SERUM 0.49 mg/dL (0.57-1.11); EST GLOMERULAR FILTRATION RATE > 60 ML/MIN (60-); GLUCOSE 104 mg/dL (74-118); POTASSIUM 4.4 mmol/L (3.5-5.1); SODIUM 139 mmol/L (136-145)
[2020-08-11 06:59] LABS: CARBON DIOXIDE 47 mmol/L (22-29)
[2020-08-11 07:39] LABS: ABG PCO2 119 mmHg (35-45); ABG PH 7.28 (7.35-7.45)
[2020-08-11 07:40] LABS: ABG HCO3 56 mmol/L (22-26); ABG PO2 59 mmHg (80-105); ABG TCO2 > 50
[2020-08-11] MEDS: IBUPROFEN 100 MG/5 ML SUSP PO PRN (08:01)
[2020-08-11] MEDS: VANCOMYCIN 1GM/NS 250 ML 250 ML IV SCH ×2 (08:02→20:51)
[2020-08-11] MEDS: FUROSEMIDE INJ 10 MG/ML 4 ML VIAL IV SCH (08:02)
[2020-08-11] MEDS: KCL 20 MEQ PACKET/ ORAL SOLN NG SCH (08:02)
[2020-08-11] MEDS: DOCUSATE SODIUM LIQD 100 MG/10 ML UDC NG SCH (08:02)
[2020-08-11] MEDS: EYE LUBRICANT OPTH OINT 3.5GM TUBE OP SCH (08:03)
[2020-08-11] MEDS: MIDAZOLAM HCL 5MG/ML 10ML VIAL 100 ML IV PRN ×3 (09:44→19:48)
[2020-08-11] MEDS ORDERED: FUROSEMIDE INJ 100 MG in SODIUM CHLORIDE 0.9% 100 ML 90 ML IV SCH (10:15)
[2020-08-11] MEDS: ACETAZOLAMIDE 250 MG TAB PO SCH ×2 (10:57→17:50)
[2020-08-11] MEDS ORDERED: BISACODYL 10 MG SUPP PR PRN (11:30)
[2020-08-11] MEDS: LACTULOSE SYRUP 20 GM/30 ML UDC PO SCH ×2 (12:00→14:27)
[2020-08-11] MEDS: MAGNESIUM HYDROXIDE 30 ML UDC PO PRN (12:16)
[2020-08-11] MEDS ORDERED: PROPOFOL IV EMULSION 10 MG/ML 50 ML VIAL IV ONE (13:00)
[2020-08-11] MEDS ORDERED: FENTANYL 2,000 MCG/250 ML BAG ONE (13:00)
[2020-08-11] MEDS ORDERED: PROPOFOL IV EMULSION 10MG/ML 100ML BTL ONE (13:00)
[2020-08-11] MEDS ORDERED: MIDAZOLAM HCL 5MG/ML 10ML VIAL 100 ML BAG IV ONE (13:00)
[2020-08-11] MEDS: FUROSEMIDE INJ 100 MG in SODIUM CHLORIDE 0.9% 100 ML 90 ML IV SCH ×2 (14:27→22:11)
[2020-08-11] MEDS ORDERED: AMIODARONE HCL 150MG 100 ML IV ONE (16:15)
[2020-08-11] MEDS ORDERED: AMIODARONE HCL 900 MG in DEXTROSE 5% 500ML 500 ML IV SCH (16:30)
[2020-08-11 16:32] LABS: ABG HCO3 54 mmol/L (22-26); ABG PCO2 102 mmHg (35-45); ABG PH 7.34 (7.35-7.45); ABG PO2 64 mmHg (80-105); ABG TCO2 > 50
[2020-08-11] MEDS: CISATRACURIUM BESYLATE 100 MG in SODIUM CHLORIDE 0.9% 100 ML 50 ML IV PRN ×2 (17:11→23:45)
[2020-08-11] MEDS ORDERED: LACTULOSE SYRUP 20 GM/30 ML UDC PO PRN (17:15)
[2020-08-11] MEDS: AMIODARONE 900MG 500 ML IV SCH ×2 (18:45→22:11)
[2020-08-12] VITALS (25 sets, daily range): BP systolic 81–113; BP diastolic 41–70
[2020-08-12] MEDS: PROPOFOL IV EMULSION 10MG/ML 100 ML IV SCH ×7 (00:34→21:40)
[2020-08-12] MEDS: MIDAZOLAM HCL 5MG/ML 10ML VIAL 100 ML IV PRN ×5 (00:59→21:39)
[2020-08-12] MEDS: CISATRACURIUM BESYLATE 100 MG in SODIUM CHLORIDE 0.9% 100 ML 50 ML IV PRN ×4 (04:55→21:21)
[2020-08-12] MEDS: MEROPENEM 1GRAM 1 GM in SODIUM CHLORIDE 0.9% 100 ML 100 ML IV SCH ×3 (06:13→22:51)
[2020-08-12 06:24] LABS: BASOPHILS # (AUTO) 0.2 (0.0-0.1); BASOPHILS % 1.3 % (0.0-1.0); EOSINOPHILS # (AUTO) 0.2 (0.0-0.4); EOSINOPHILS % 1.4 % (0.0-6.0); HEMATOCRIT 29.9 % (34.2-44.1); HEMOGLOBIN 8.7 g/dL (12.0-16.0); LYMPHOCYTES # (AUTO) 1.5 (1.0-3.2); LYMPHOCYTES % 11.9 % (18.0-39.1); MEAN CORPUSCULAR HEMOGLOBIN 31.5 pg (28-32); MEAN CORPUSCULAR HGB CONC 29.1 g/dL (31-35); MEAN CORPUSCULAR VOLUME 108.3 fL (81-99); MONOCYTES # (AUTO) 1.4 (0.2-0.8); MONOCYTES % 11.2 % (4.4-11.3); NEUTROPHILS # (AUTO) 8.8 (2.1-6.9); NEUTROPHILS % 69.1 % (38.7-80.0); PLATELET COUNT 375 x10e3/uL (140-360); RED BLOOD COUNT 2.76 x10e6/uL (3.6-5.1); RED CELL DISTRIBUTION WIDTH 18.1 % (11.7-14.4)
[2020-08-12 06:57] LABS: ALANINE AMINOTRANSFERASE 112 IU/L (0-55); ALBUMIN 3.3 g/dL (3.5-5.0); ALBUMIN/GLOBULIN RATIO 0.9 (0.8-2.0); ALKALINE PHOSPHATASE 189 IU/L (40-150); ANION GAP 17.8 mmol/L (8-16); BLOOD UREA NITROGEN 22 mg/dL (7-26); BUN/CREATININE RATIO 39 (6-25); CHLORIDE 84 mmol/L (98-107); CREATININE, SERUM 0.56 mg/dL (0.57-1.11); EST GLOMERULAR FILTRATION RATE > 60 ML/MIN (60-); GLUCOSE 158 mg/dL (74-118); PHOSPHORUS 3.8 MG/DL (2.3-4.7); POTASSIUM 3.8 mmol/L (3.5-5.1); SODIUM 140 mmol/L (136-145)
[2020-08-12 07:04] LABS: CARBON DIOXIDE 42 mmol/L (22-29)
[2020-08-12] MEDS: ACETAZOLAMIDE 250 MG TAB PO SCH ×2 (08:19→16:47)
[2020-08-12] MEDS: LEVOTHYROXINE SODIUM 100 MCG/VIAL IV SCH (08:19)
[2020-08-12] MEDS: DOCUSATE SODIUM LIQD 100 MG/10 ML UDC NG SCH (08:19)
[2020-08-12] MEDS: FUROSEMIDE INJ 100 MG in SODIUM CHLORIDE 0.9% 100 ML 90 ML IV SCH ×3 (08:39→23:34)
[2020-08-12] MEDS: VANCOMYCIN 1GM/NS 250 ML 250 ML IV SCH ×2 (09:23→21:00)
[2020-08-12 09:27] LABS: BAND NEUTROPHILS % (MANUAL) 1 %; EOSINOPHILS % (MANUAL) 5 % (0-7); LYMPHOCYTES % (MANUAL) 7 % (19-48); MONOCYTES % (MANUAL) 4 % (3.4-9.0); MYELOCYTES % (MANUAL) 6 % (0-0); NEUTROPHILS % (MANUAL) 76 % (40-74); NUCLEATED RED BLOOD CELLS 1
[2020-08-12 09:28] LABS: HYPOCHROMASIA SLIGHT; PLATELET ESTIMATE SLIGHTLY INCREASED; RBC MORPHOLOGY COMMENT ABNORMAL
[2020-08-12 09:29] LABS: PLATELET MORPHOLOGY COMMENT FEW GIANT
[2020-08-12] MEDS: FENTANYL 2000MCG/NS 250 250 ML IV SCH ×2 (12:04→23:51)
[2020-08-12 12:11] LABS: ABG HCO3 46 mmol/L (22-26); ABG PCO2 105 mmHg (35-45); ABG PH 7.25 (7.35-7.45); ABG PO2 59 mmHg (80-105)
[2020-08-12 12:12] LABS: ABG TCO2 49
[2020-08-12 16:11] LABS: ABG HCO3 44 mmol/L (22-26); ABG PCO2 97 mmHg (35-45); ABG PH 7.27 (7.35-7.45); ABG PO2 47 mmHg (80-105); ABG TCO2 47
[2020-08-12] MEDS: HEPARIN 25,000 UNIT 25,000 UNIT in DEXTROSE 5% 250ML 250 ML IV SCH (23:34)
[2020-08-13] VITALS (26 sets, daily range): BP systolic 74–131; BP diastolic 47–82
[2020-08-13] MEDS: AMIODARONE HCL 900 MG in DEXTROSE 5% 500ML 500 ML IV SCH ×2 (01:25→07:22)
[2020-08-13] MEDS ORDERED: ALBUMIN 25% 25GM 100ML 0.25 GM/ML BTL IV ONE (02:00)
[2020-08-13] MEDS ORDERED: ALBUMIN 25% 25GM 100ML 200 ML ONE (02:07)
[2020-08-13] MEDS: CISATRACURIUM BESYLATE 100 MG in SODIUM CHLORIDE 0.9% 100 ML 50 ML IV PRN ×4 (02:53→21:15)
[2020-08-13] MEDS: MIDAZOLAM HCL 5MG/ML 10ML VIAL 100 ML IV PRN ×4 (03:14→21:16)
[2020-08-13] MEDS: PROPOFOL IV EMULSION 10MG/ML 100 ML IV SCH ×6 (04:15→20:00)
[2020-08-13] MEDS: MEROPENEM 1GRAM 1 GM in SODIUM CHLORIDE 0.9% 100 ML 100 ML IV SCH ×3 (05:56→22:00)
[2020-08-13 06:02] LABS: BASOPHILS # (AUTO) 0.2 (0.0-0.1); BASOPHILS % 1.1 % (0.0-1.0); EOSINOPHILS # (AUTO) 0.1 (0.0-0.4); EOSINOPHILS % 0.9 % (0.0-6.0); HEMATOCRIT 29.8 % (34.2-44.1); HEMOGLOBIN 8.7 g/dL (12.0-16.0); LYMPHOCYTES # (AUTO) 1.6 (1.0-3.2); LYMPHOCYTES % 11.4 % (18.0-39.1); MEAN CORPUSCULAR HEMOGLOBIN 31.3 pg (28-32); MEAN CORPUSCULAR HGB CONC 29.2 g/dL (31-35); MEAN CORPUSCULAR VOLUME 107.2 fL (81-99); MONOCYTES # (AUTO) 1.6 (0.2-0.8); MONOCYTES % 11.3 % (4.4-11.3); NEUTROPHILS % 70.1 % (38.7-80.0); PLATELET COUNT 354 x10e3/uL (140-360); RED BLOOD COUNT 2.78 x10e6/uL (3.6-5.1); RED CELL DISTRIBUTION WIDTH 18.2 % (11.7-14.4)
[2020-08-13 06:27] LABS: ALANINE AMINOTRANSFERASE 271 IU/L (0-55); ALBUMIN 3.9 g/dL (3.5-5.0); ALBUMIN/GLOBULIN RATIO 1.3 (0.8-2.0); ALKALINE PHOSPHATASE 202 IU/L (40-150); ANION GAP 20.3 mmol/L (8-16); BLOOD UREA NITROGEN 32 mg/dL (7-26); BUN/CREATININE RATIO 43 (6-25); CALCIUM 7.9 mg/dL (8.4-10.2); CARBON DIOXIDE 34 mmol/L (22-29); CHLORIDE 85 mmol/L (98-107); CREATININE, SERUM 0.75 mg/dL (0.57-1.11); EST GLOMERULAR FILTRATION RATE > 60 ML/MIN (60-); GLUCOSE 104 mg/dL (74-118); POTASSIUM 4.3 mmol/L (3.5-5.1); SODIUM 135 mmol/L (136-145)
[2020-08-13 06:38] LABS: MAGNESIUM 2.2 MG/DL (1.3-2.1)
[2020-08-13] MEDS: FENTANYL 2000MCG/NS 250 250 ML IV SCH ×3 (07:02→21:15)
[2020-08-13] MEDS: HEPARIN 25,000 UNIT 25,000 UNIT in DEXTROSE 5% 250ML 250 ML IV SCH (07:06)
[2020-08-13 07:26] LABS: EOSINOPHILS % (MANUAL) 2 % (0-7); HYPOCHROMASIA SLIGHT; LYMPHOCYTES % (MANUAL) 6 % (19-48); METAMYELOCYTES % (MANUAL) 4 % (0-0); MONOCYTES % (MANUAL) 4 % (3.4-9.0); NEUTROPHILS % (MANUAL) 84 % (40-74); NUCLEATED RED BLOOD CELLS 2
[2020-08-13 07:27] LABS: PLATELET ESTIMATE ADEQUATE; PLATELET MORPHOLOGY COMMENT FEW LARGE; RBC MORPHOLOGY COMMENT NORMAL
[2020-08-13] MEDS: VANCOMYCIN 1GM/NS 250 ML 250 ML IV SCH ×2 (08:23→20:57)
[2020-08-13] MEDS: DOCUSATE SODIUM LIQD 100 MG/10 ML UDC NG SCH (08:23)
[2020-08-13] MEDS: ACETAZOLAMIDE 250 MG TAB PO SCH ×2 (08:23→17:47)
[2020-08-13 09:10] LABS: ABG HCO3 37 mmol/L (22-26); ABG PCO2 117 mmHg (35-45); ABG PH 7.11 (7.35-7.45); ABG PO2 65 mmHg (80-105); ABG TCO2 41
[2020-08-13] MEDS: FUROSEMIDE INJ 100 MG in SODIUM CHLORIDE 0.9% 100 ML 90 ML IV SCH ×2 (11:55→17:48)
[2020-08-13] MEDS: AMIODARONE HCL 200 MG TAB PEG SCH (12:13)
[2020-08-13] MEDS ORDERED: PROPOFOL IV EMULSION 10 MG/ML 50 ML VIAL IV ONE (12:24)
[2020-08-13] MEDS ORDERED: FENTANYL 2,000 MCG/250 ML BAG ONE (12:24)
[2020-08-13] MEDS ORDERED: MIDAZOLAM HCL 5MG/ML 10ML VIAL 100 ML BAG IV ONE (12:24)
[2020-08-13] MEDS ORDERED: PROPOFOL IV EMULSION 10MG/ML 100ML BTL ONE (12:24)
[2020-08-13] MEDS ORDERED: SODIUM CHLORIDE 0.9% 1000ML 2,000 ML IV PRN (14:30)
[2020-08-13] MEDS ORDERED: HEPARIN SOD (PORCINE) 1000 UNIT/ML SDV IV PRN (14:30)
[2020-08-13 16:01] LABS: ABG HCO3 38 mmol/L (22-26); ABG PCO2 103 mmHg (35-45); ABG PH 7.18 (7.35-7.45); ABG PO2 71 mmHg (80-105); ABG TCO2 41
[2020-08-13] MEDS: NOREPINEPHRINE 8 MG/D5W 250 ML 250 ML IV SCH (16:16)
[2020-08-14] VITALS (26 sets, daily range): BP systolic 90–131; BP diastolic 57–84
[2020-08-14] MEDS: MIDAZOLAM HCL 5MG/ML 10ML VIAL 100 ML IV PRN ×4 (00:26→23:50)
[2020-08-14] MEDS: HEPARIN 25,000 UNIT 25,000 UNIT in DEXTROSE 5% 250ML 250 ML IV SCH (01:39)
[2020-08-14] MEDS: FENTANYL 2000MCG/NS 250 250 ML IV SCH ×4 (04:18→23:51)
[2020-08-14] MEDS: PROPOFOL IV EMULSION 10MG/ML 100 ML IV SCH ×6 (04:19→21:00)
[2020-08-14 05:24] LABS: BASOPHILS # (AUTO) 0.2 (0.0-0.1); EOSINOPHILS # (AUTO) 0.1 (0.0-0.4); EOSINOPHILS % 0.3 % (0.0-6.0); HEMOGLOBIN 8.4 g/dL (12.0-16.0); LYMPHOCYTES # (AUTO) 0.9 (1.0-3.2); LYMPHOCYTES % 6.1 % (18.0-39.1); MEAN CORPUSCULAR HEMOGLOBIN 31.5 pg (28-32); MEAN CORPUSCULAR VOLUME 104.9 fL (81-99); MONOCYTES # (AUTO) 1.7 (0.2-0.8); MONOCYTES % 10.8 % (4.4-11.3); NEUTROPHILS # (AUTO) 11.5 (2.1-6.9); NEUTROPHILS % 75.4 % (38.7-80.0); PLATELET COUNT 292 x10e3/uL (140-360); RED BLOOD COUNT 2.67 x10e6/uL (3.6-5.1); RED CELL DISTRIBUTION WIDTH 18.3 % (11.7-14.4)
[2020-08-14] MEDS: MEROPENEM 1GRAM 1 GM in SODIUM CHLORIDE 0.9% 100 ML 100 ML IV SCH ×3 (05:42→22:29)
[2020-08-14 06:07] LABS: ALANINE AMINOTRANSFERASE 1442 IU/L (0-55); ALBUMIN 3.5 g/dL (3.5-5.0); ALBUMIN/GLOBULIN RATIO 1.1 (0.8-2.0); ALKALINE PHOSPHATASE 224 IU/L (40-150); ANION GAP 17.3 mmol/L (8-16); BLOOD UREA NITROGEN 39 mg/dL (7-26); BUN/CREATININE RATIO 56 (6-25); CALCIUM 7.7 mg/dL (8.4-10.2); CARBON DIOXIDE 34 mmol/L (22-29); CHLORIDE 86 mmol/L (98-107); EST GLOMERULAR FILTRATION RATE > 60 ML/MIN (60-); GLUCOSE 114 mg/dL (74-118); POTASSIUM 4.3 mmol/L (3.5-5.1); SODIUM 133 mmol/L (136-145)
[2020-08-14] MEDS: AMIODARONE HCL 200 MG TAB PEG SCH (07:58)
[2020-08-14] MEDS: ACETAZOLAMIDE 250 MG TAB PO SCH ×2 (07:58→17:43)
[2020-08-14] MEDS: LEVOTHYROXINE SODIUM 100 MCG/VIAL IV SCH (07:58)
[2020-08-14] MEDS: VANCOMYCIN 1GM/NS 250 ML 250 ML IV SCH ×2 (07:58→21:15)
[2020-08-14] MEDS: DOCUSATE SODIUM LIQD 100 MG/10 ML UDC NG SCH (07:58)
[2020-08-14 08:26] LABS: ABG PCO2 87 mmHg (35-45); ABG PH 7.26 (7.35-7.45); ABG PO2 80 mmHg (80-105)
[2020-08-14 08:27] LABS: ABG HCO3 38 mmol/L (22-26); ABG TCO2 41
[2020-08-14] MEDS: CISATRACURIUM BESYLATE 100 MG in SODIUM CHLORIDE 0.9% 100 ML 50 ML IV PRN ×3 (09:00→22:00)
[2020-08-14] MEDS: FUROSEMIDE INJ 100 MG in SODIUM CHLORIDE 0.9% 100 ML 90 ML IV SCH ×5 (12:30→23:01)
[2020-08-14] MEDS: NOREPINEPHRINE 8 MG/D5W 250 ML 250 ML IV SCH (16:00)
[2020-08-14 18:14] LABS: ABG HCO3 41 mmol/L (22-26); ABG PCO2 84 mmHg (35-45); ABG PO2 92 mmHg (80-105); ABG TCO2 44
[2020-08-15] VITALS (26 sets, daily range): BP systolic 95–129; BP diastolic 56–92
[2020-08-15] MEDS: PROPOFOL IV EMULSION 10MG/ML 100 ML IV SCH ×6 (02:00→22:00)
[2020-08-15] MEDS: HEPARIN 25,000 UNIT 25,000 UNIT in DEXTROSE 5% 250ML 250 ML IV SCH ×2 (02:26→21:30)
[2020-08-15] MEDS: CISATRACURIUM BESYLATE 100 MG in SODIUM CHLORIDE 0.9% 100 ML 50 ML IV PRN ×4 (04:32→19:20)
[2020-08-15] MEDS: MIDAZOLAM HCL 5MG/ML 10ML VIAL 100 ML IV PRN ×4 (04:33→22:00)
[2020-08-15] MEDS: FENTANYL 2000MCG/NS 250 250 ML IV SCH ×3 (05:36→19:20)
[2020-08-15] MEDS: FUROSEMIDE INJ 100 MG in SODIUM CHLORIDE 0.9% 100 ML 90 ML IV SCH ×4 (05:36→14:48)
[2020-08-15 05:53] LABS: BASOPHILS # (AUTO) 0.1 (0.0-0.1); BASOPHILS % 1.1 % (0.0-1.0); EOSINOPHILS # (AUTO) 0.2 (0.0-0.4); HEMATOCRIT 26.2 % (34.2-44.1); HEMOGLOBIN 7.9 g/dL (12.0-16.0); LYMPHOCYTES # (AUTO) 0.9 (1.0-3.2); LYMPHOCYTES % 7.7 % (18.0-39.1); MEAN CORPUSCULAR HEMOGLOBIN 30.6 pg (28-32); MEAN CORPUSCULAR HGB CONC 30.2 g/dL (31-35); MEAN CORPUSCULAR VOLUME 101.6 fL (81-99); MONOCYTES % 8.6 % (4.4-11.3); NEUTROPHILS # (AUTO) 8.4 (2.1-6.9); NEUTROPHILS % 72.2 % (38.7-80.0); PLATELET COUNT 237 x10e3/uL (140-360); RED BLOOD COUNT 2.58 x10e6/uL (3.6-5.1); RED CELL DISTRIBUTION WIDTH 19.1 % (11.7-14.4)
[2020-08-15] MEDS: MEROPENEM 1GRAM 1 GM in SODIUM CHLORIDE 0.9% 100 ML 100 ML IV SCH ×3 (05:53→22:00)
[2020-08-15 06:03] LABS: ALANINE AMINOTRANSFERASE 1243 IU/L (0-55); ALBUMIN 3.2 g/dL (3.5-5.0); ALBUMIN/GLOBULIN RATIO 0.9 (0.8-2.0); ALKALINE PHOSPHATASE 227 IU/L (40-150); ANION GAP 15.2 mmol/L (8-16); BLOOD UREA NITROGEN 34 mg/dL (7-26); BUN/CREATININE RATIO 63 (6-25); CALCIUM 7.4 mg/dL (8.4-10.2); CARBON DIOXIDE 39 mmol/L (22-29); CHLORIDE 87 mmol/L (98-107); CREATININE, SERUM 0.54 mg/dL (0.57-1.11); EST GLOMERULAR FILTRATION RATE > 60 ML/MIN (60-); GLUCOSE 143 mg/dL (74-118); SODIUM 139 mmol/L (136-145)
[2020-08-15 06:06] LABS: POTASSIUM 2.2 mmol/L (3.5-5.1)
[2020-08-15] MEDS: POTASSIUM CHLORIDE 20MEQ/100ML 200 ML IV PRN (06:16)
[2020-08-15 08:22] LABS: ABG HCO3 40 mmol/L (22-26); ABG PCO2 70 mmHg (35-45); ABG PH 7.36 (7.35-7.45); ABG PO2 90 mmHg (80-105); ABG TCO2 42
[2020-08-15] MEDS: VANCOMYCIN 1GM/NS 250 ML 250 ML IV SCH (08:46)
[2020-08-15] MEDS: AMIODARONE HCL 200 MG TAB PEG SCH (08:54)
[2020-08-15] MEDS: DOCUSATE SODIUM LIQD 100 MG/10 ML UDC NG SCH (08:54)
[2020-08-15] MEDS: ACETAZOLAMIDE 250 MG TAB PO SCH ×2 (08:54→16:12)
[2020-08-15] MEDS: NOREPINEPHRINE 8 MG/D5W 250 ML 250 ML IV SCH (13:58)
[2020-08-15] MEDS: POTASSIUM CHLORIDE 20 MEQ TAB CR PO SCH ×2 (13:58→20:47)
[2020-08-15] MEDS ORDERED: POTASSIUM CHLORIDE 20MEQ/100ML 200 ML IV ONE (14:30)
[2020-08-15] MEDS: IBUPROFEN 100 MG/5 ML SUSP PO PRN (16:12)
[2020-08-15] MEDS ORDERED: POTASSIUM CHLORIDE 20MEQ/100ML 100 ML IV ONE (20:15)
[2020-08-16] VITALS (25 sets, daily range): BP systolic 114–152; BP diastolic 67–80
[2020-08-16] MEDS: CISATRACURIUM BESYLATE 100 MG in SODIUM CHLORIDE 0.9% 100 ML 50 ML IV PRN ×5 (01:00→23:00)
[2020-08-16 01:09] LABS: ABG HCO3 48 mmol/L (22-26); ABG PCO2 79 mmHg (35-45); ABG PH 7.39 (7.35-7.45); ABG PO2 109 mmHg (80-105); ABG TCO2 50
[2020-08-16] MEDS: FENTANYL 2000MCG/NS 250 250 ML IV SCH ×2 (01:25→09:00)
[2020-08-16] MEDS: FUROSEMIDE INJ 100 MG in SODIUM CHLORIDE 0.9% 100 ML 90 ML IV SCH ×4 (01:38→17:34)
[2020-08-16] MEDS: MIDAZOLAM HCL 5MG/ML 10ML VIAL 100 ML IV PRN ×5 (01:47→20:00)
[2020-08-16] MEDS: PROPOFOL IV EMULSION 10MG/ML 100 ML IV SCH ×4 (03:00→20:00)
[2020-08-16] MEDS ORDERED: HEPARIN SOD/SOD CHLORIDE 1,000 ML ONE (04:41)
[2020-08-16] MEDS: MEROPENEM 1GRAM 1 GM in SODIUM CHLORIDE 0.9% 100 ML 100 ML IV SCH ×2 (06:07→14:30)
[2020-08-16 06:19] LABS: BASOPHILS # (AUTO) 0.1 (0.0-0.1); EOSINOPHILS # (AUTO) 0.4 (0.0-0.4); EOSINOPHILS % 3.3 % (0.0-6.0); HEMATOCRIT 26.3 % (34.2-44.1); HEMOGLOBIN 8.2 g/dL (12.0-16.0); LYMPHOCYTES # (AUTO) 1.2 (1.0-3.2); LYMPHOCYTES % 10.4 % (18.0-39.1); MEAN CORPUSCULAR HEMOGLOBIN 31.3 pg (28-32); MEAN CORPUSCULAR HGB CONC 31.2 g/dL (31-35); MEAN CORPUSCULAR VOLUME 100.4 fL (81-99); MONOCYTES # (AUTO) 0.9 (0.2-0.8); NEUTROPHILS # (AUTO) 7.6 (2.1-6.9); NEUTROPHILS % 66.6 % (38.7-80.0); PLATELET COUNT 207 x10e3/uL (140-360); RED BLOOD COUNT 2.62 x10e6/uL (3.6-5.1); RED CELL DISTRIBUTION WIDTH 20.3 % (11.7-14.4)
[2020-08-16 06:49] LABS: ALANINE AMINOTRANSFERASE 1001 IU/L (0-55); ALBUMIN 2.8 g/dL (3.5-5.0); ALBUMIN/GLOBULIN RATIO 0.8 (0.8-2.0); ALKALINE PHOSPHATASE 189 IU/L (40-150); ANION GAP 15.3 mmol/L (8-16); BLOOD UREA NITROGEN 20 mg/dL (7-26); BUN/CREATININE RATIO 45 (6-25); CALCIUM 7.4 mg/dL (8.4-10.2); CHLORIDE 89 mmol/L (98-107); CREATININE, SERUM 0.44 mg/dL (0.57-1.11); EST GLOMERULAR FILTRATION RATE > 60 ML/MIN (60-); GLUCOSE 145 mg/dL (74-118); MAGNESIUM 1.6 MG/DL (1.3-2.1); SODIUM 146 mmol/L (136-145)
[2020-08-16 06:51] LABS: CARBON DIOXIDE 44 mmol/L (22-29); POTASSIUM 2.3 mmol/L (3.5-5.1)
[2020-08-16] MEDS: POTASSIUM CHLORIDE 20MEQ/100ML 200 ML IV PRN (06:56)
[2020-08-16 07:11] LABS: % IRON SATURATION 13 % (15-50); IRON 30 ug/dL (50-170); TOTAL IRON BINDING CAPACITY 239 ug/dL (261-478); TRANSFERRIN 171 mg/dL (180-382)
[2020-08-16 08:17] LABS: ABG HCO3 54 mmol/L (22-26); ABG PCO2 83 mmHg (35-45); ABG PH 7.42 (7.35-7.45); ABG PO2 77 mmHg (80-105); ABG TCO2 50
[2020-08-16] MEDS: POTASSIUM CHLORIDE 20 MEQ TAB CR PO SCH ×3 (08:47→21:05)
[2020-08-16] MEDS: DOCUSATE SODIUM LIQD 100 MG/10 ML UDC NG SCH (08:47)
[2020-08-16] MEDS: ACETAZOLAMIDE 250 MG TAB PO SCH ×2 (08:47→17:34)
[2020-08-16] MEDS: AMIODARONE HCL 200 MG TAB PEG SCH (08:47)
[2020-08-16] MEDS: LEVOTHYROXINE SODIUM 100 MCG/VIAL IV SCH (09:02)
[2020-08-16] MEDS: HEPARIN 25,000 UNIT 25,000 UNIT in DEXTROSE 5% 250ML 250 ML IV SCH (11:17)
[2020-08-16 14:28] LABS: ABG HCO3 53 mmol/L (22-26); ABG PCO2 88 mmHg (35-45); ABG PH 7.39 (7.35-7.45); ABG PO2 75 mmHg (80-105); ABG TCO2 50
[2020-08-16] MEDS: FENTANYL CITRATE INJ 2,000 MCG in SODIUM CHLORIDE 0.9% 250ML 210 ML IV PRN (16:08)
[2020-08-16] MEDS ORDERED: SODIUM CHLORIDE 0.9% 250ML 500 ML IV PRN (16:45)
[2020-08-16] MEDS ORDERED: SODIUM CHLORIDE 0.9% 1000ML 2,000 ML IV PRN (16:45)
[2020-08-16] MEDS ORDERED: HEPARIN SOD (PORCINE) 1000 UNIT/ML SDV IV PRN (16:45)
[2020-08-16] MEDS ORDERED: POTASSIUM CHLORIDE 20MEQ/100ML 200 ML IV ONE (18:00)
[2020-08-17] VITALS (27 sets, daily range): BP systolic 96–141; BP diastolic 45–84
[2020-08-17] MEDS: PROPOFOL IV EMULSION 10MG/ML 100 ML IV SCH ×8 (01:00→21:51)
[2020-08-17] MEDS: MEROPENEM 1GRAM 1 GM in SODIUM CHLORIDE 0.9% 100 ML 100 ML IV SCH ×3 (01:00→17:33)
[2020-08-17] MEDS: MIDAZOLAM HCL 5MG/ML 10ML VIAL 100 ML IV PRN ×5 (02:30→21:30)
[2020-08-17] MEDS: FUROSEMIDE INJ 100 MG in SODIUM CHLORIDE 0.9% 100 ML 90 ML IV SCH ×4 (02:48→17:33)
[2020-08-17] MEDS: CISATRACURIUM BESYLATE 100 MG in SODIUM CHLORIDE 0.9% 100 ML 50 ML IV PRN ×4 (05:07→20:30)
[2020-08-17] MEDS: FENTANYL CITRATE INJ 2,000 MCG in SODIUM CHLORIDE 0.9% 250ML 210 ML IV PRN ×5 (05:07→19:30)
[2020-08-17] MEDS: IBUPROFEN 100 MG/5 ML SUSP PO PRN (05:52)
[2020-08-17 06:25] LABS: BASOPHILS # (AUTO) 0.1 (0.0-0.1); BASOPHILS % 0.4 % (0.0-1.0); EOSINOPHILS # (AUTO) 0.2 (0.0-0.4); EOSINOPHILS % 1.8 % (0.0-6.0); HEMOGLOBIN 8.3 g/dL (12.0-16.0); LYMPHOCYTES # (AUTO) 1.4 (1.0-3.2); LYMPHOCYTES % 10.2 % (18.0-39.1); MEAN CORPUSCULAR HEMOGLOBIN 30.9 pg (28-32); MEAN CORPUSCULAR HGB CONC 29.6 g/dL (31-35); MEAN CORPUSCULAR VOLUME 104.1 fL (81-99); MONOCYTES # (AUTO) 1.4 (0.2-0.8); MONOCYTES % 10.6 % (4.4-11.3); NEUTROPHILS # (AUTO) 9.1 (2.1-6.9); NEUTROPHILS % 67.3 % (38.7-80.0); PLATELET COUNT 113 x10e3/uL (140-360); RED BLOOD COUNT 2.69 x10e6/uL (3.6-5.1); RED CELL DISTRIBUTION WIDTH 21.3 % (11.7-14.4)
[2020-08-17 06:48] LABS: ALANINE AMINOTRANSFERASE 686 IU/L (0-55); ALBUMIN 2.9 g/dL (3.5-5.0); ALBUMIN/GLOBULIN RATIO 0.7 (0.8-2.0); ALKALINE PHOSPHATASE 193 IU/L (40-150); ANION GAP 15.6 mmol/L (8-16); BLOOD UREA NITROGEN 16 mg/dL (7-26); BUN/CREATININE RATIO 35 (6-25); CALCIUM 7.8 mg/dL (8.4-10.2); CHLORIDE 92 mmol/L (98-107); CREATININE, SERUM 0.46 mg/dL (0.57-1.11); EST GLOMERULAR FILTRATION RATE > 60 ML/MIN (60-); GLUCOSE 142 mg/dL (74-118); POTASSIUM 3.6 mmol/L (3.5-5.1); SODIUM 148 mmol/L (136-145)
[2020-08-17 06:56] LABS: CARBON DIOXIDE 44 mmol/L (22-29)
[2020-08-17] MEDS: AMIODARONE HCL 200 MG TAB PEG SCH (08:43)
[2020-08-17] MEDS: DOCUSATE SODIUM LIQD 100 MG/10 ML UDC NG SCH (08:43)
[2020-08-17] MEDS: POTASSIUM CHLORIDE 20 MEQ TAB CR PO SCH ×3 (08:43→21:36)
[2020-08-17] MEDS: ACETAZOLAMIDE 250 MG TAB PO SCH ×2 (08:43→17:33)
[2020-08-17 08:45] LABS: ABG HCO3 50 mmol/L (22-26); ABG PCO2 79 mmHg (35-45); ABG PH 7.41 (7.35-7.45); ABG PO2 78 mmHg (80-105)
[2020-08-17 08:46] LABS: ABG TCO2 > 50
[2020-08-17] MEDS: IRON SUCROSE 100 MG in SODIUM CHLORIDE 0.9% 100 ML 100 ML IV SCH (10:44)
[2020-08-17] MEDS: HEPARIN 25,000 UNIT 25,000 UNIT in DEXTROSE 5% 250ML 250 ML IV SCH (21:30)
[2020-08-18] VITALS (24 sets, daily range): BP systolic 104–147; BP diastolic 61–81
[2020-08-18] MEDS: CISATRACURIUM BESYLATE 100 MG in SODIUM CHLORIDE 0.9% 100 ML 50 ML IV PRN ×3 (00:20→12:39)
[2020-08-18] MEDS: MEROPENEM 1GRAM 1 GM in SODIUM CHLORIDE 0.9% 100 ML 100 ML IV SCH ×3 (01:00→16:56)
[2020-08-18] MEDS: FUROSEMIDE INJ 100 MG in SODIUM CHLORIDE 0.9% 100 ML 90 ML IV SCH ×4 (01:32→19:06)
[2020-08-18] MEDS: FENTANYL CITRATE INJ 2,000 MCG in SODIUM CHLORIDE 0.9% 250ML 210 ML IV PRN ×4 (01:35→23:00)
[2020-08-18] MEDS: MIDAZOLAM HCL 5MG/ML 10ML VIAL 100 ML IV PRN ×4 (01:35→22:18)
[2020-08-18] MEDS: PROPOFOL IV EMULSION 10MG/ML 100 ML IV SCH ×4 (02:30→20:00)
[2020-08-18 06:00] LABS: BASOPHILS # (AUTO) 0.1 (0.0-0.1); BASOPHILS % 0.7 % (0.0-1.0); EOSINOPHILS # (AUTO) 0.4 (0.0-0.4); EOSINOPHILS % 3.2 % (0.0-6.0); HEMATOCRIT 25.4 % (34.2-44.1); HEMOGLOBIN 7.6 g/dL (12.0-16.0); LYMPHOCYTES # (AUTO) 1.5 (1.0-3.2); MEAN CORPUSCULAR HEMOGLOBIN 31.4 pg (28-32); MEAN CORPUSCULAR HGB CONC 29.9 g/dL (31-35); MONOCYTES % 8.8 % (4.4-11.3); NEUTROPHILS # (AUTO) 7.4 (2.1-6.9); NEUTROPHILS % 66.4 % (38.7-80.0); PLATELET COUNT 116 x10e3/uL (140-360); RED BLOOD COUNT 2.42 x10e6/uL (3.6-5.1); RED CELL DISTRIBUTION WIDTH 21.3 % (11.7-14.4)
[2020-08-18 06:29] LABS: ALANINE AMINOTRANSFERASE 380 IU/L (0-55); ALBUMIN 2.5 g/dL (3.5-5.0); ALBUMIN/GLOBULIN RATIO 0.7 (0.8-2.0); ALKALINE PHOSPHATASE 148 IU/L (40-150); ANION GAP 12.2 mmol/L (8-16); BLOOD UREA NITROGEN 16 mg/dL (7-26); BUN/CREATININE RATIO 36 (6-25); CALCIUM 7.7 mg/dL (8.4-10.2); CHLORIDE 92 mmol/L (98-107); CREATININE, SERUM 0.44 mg/dL (0.57-1.11); EST GLOMERULAR FILTRATION RATE > 60 ML/MIN (60-); GLUCOSE 119 mg/dL (74-118); POTASSIUM 3.2 mmol/L (3.5-5.1); SODIUM 147 mmol/L (136-145)
[2020-08-18 06:36] LABS: CARBON DIOXIDE 46 mmol/L (22-29)
[2020-08-18] MEDS: POTASSIUM CHLORIDE 20MEQ/100ML 100 ML IV PRN (06:54)
[2020-08-18 08:40] LABS: ANISOCYTOSIS MODERATE; BAND NEUTROPHILS % (MANUAL) 3 %; EOSINOPHILS % (MANUAL) 3 % (0-7); LYMPHOCYTES % (MANUAL) 5 % (19-48); MONOCYTES % (MANUAL) 9 % (3.4-9.0); MYELOCYTES % (MANUAL) 5 % (0-0); NEUTROPHILS % (MANUAL) 75 % (40-74); NUCLEATED RED BLOOD CELLS 4; PLATELET ESTIMATE SLIGHTLY DECREASED
[2020-08-18 08:41] LABS: HYPOCHROMASIA SLIGHT; POLYCHROMASIA FEW; TEAR DROP CELLS FEW
[2020-08-18 08:42] LABS: STOMATOCYTES SLIGHT
[2020-08-18 08:43] LABS: PLATELET MORPHOLOGY COMMENT FEW LARGE; RBC MORPHOLOGY COMMENT ABNORMAL
[2020-08-18] MEDS: AMIODARONE HCL 200 MG TAB PEG SCH (08:45)
[2020-08-18] MEDS: ACETAZOLAMIDE 250 MG TAB PO SCH ×2 (08:45→16:56)
[2020-08-18] MEDS: DOCUSATE SODIUM LIQD 100 MG/10 ML UDC NG SCH (08:45)
[2020-08-18] MEDS: POTASSIUM CHLORIDE 20 MEQ TAB CR PO SCH ×3 (08:46→21:00)
[2020-08-18 09:05] LABS: ABG HCO3 47 mmol/L (22-26); ABG PCO2 93 mmHg (35-45); ABG PH 7.32 (7.35-7.45); ABG PO2 79 mmHg (80-105); ABG TCO2 50
[2020-08-18] MEDS ORDERED: ACETAMINOPHEN 325 MG TAB PO STA (11:09)
[2020-08-18] MEDS ORDERED: SODIUM CHLORIDE 0.9% 250ML 250 ML IV ONE (11:15)
[2020-08-18] MEDS: IRON SUCROSE 100 MG in SODIUM CHLORIDE 0.9% 100 ML 100 ML IV SCH (11:23)
[2020-08-18] MEDS: LEVOTHYROXINE SODIUM 100 MCG/VIAL IV SCH (11:23)
[2020-08-18] MEDS: IBUPROFEN 100 MG/5 ML SUSP PO PRN (12:40)
[2020-08-18] MEDS ORDERED: ALBUMIN 25% 12.5GM 0.25 GM/ML BTL IV ONE ×2 (15:47→16:00)
[2020-08-18] MEDS ORDERED: ALBUMIN 25% 12.5GM 50ML 100 ML IV ONE (16:30)
[2020-08-19] VITALS (33 sets, daily range): BP systolic 95–146; BP diastolic 41–80
[2020-08-19] MEDS: MEROPENEM 1GRAM 1 GM in SODIUM CHLORIDE 0.9% 100 ML 100 ML IV SCH ×3 (01:23→17:25)
[2020-08-19] MEDS: PROPOFOL IV EMULSION 10MG/ML 100 ML IV SCH ×7 (01:24→22:30)
[2020-08-19] MEDS: FUROSEMIDE INJ 100 MG in SODIUM CHLORIDE 0.9% 100 ML 90 ML IV SCH ×4 (01:24→18:33)
[2020-08-19] MEDS: MIDAZOLAM HCL 5MG/ML 10ML VIAL 100 ML IV PRN ×3 (03:14→23:30)
[2020-08-19] MEDS: FENTANYL CITRATE INJ 2,000 MCG in SODIUM CHLORIDE 0.9% 250ML 210 ML IV PRN ×2 (05:43→19:45)
[2020-08-19 06:14] LABS: BASOPHILS # (AUTO) 0.1 (0.0-0.1); BASOPHILS % 0.7 % (0.0-1.0); EOSINOPHILS # (AUTO) 0.4 (0.0-0.4); EOSINOPHILS % 3.3 % (0.0-6.0); HEMATOCRIT 28.7 % (34.2-44.1); HEMOGLOBIN 8.4 g/dL (12.0-16.0); LYMPHOCYTES % 8.5 % (18.0-39.1); MEAN CORPUSCULAR HEMOGLOBIN 30.9 pg (28-32); MEAN CORPUSCULAR HGB CONC 29.3 g/dL (31-35); MEAN CORPUSCULAR VOLUME 105.5 fL (81-99); MONOCYTES # (AUTO) 1.1 (0.2-0.8); MONOCYTES % 8.8 % (4.4-11.3); NEUTROPHILS # (AUTO) 8.3 (2.1-6.9); NEUTROPHILS % 69.1 % (38.7-80.0); PLATELET COUNT 133 x10e3/uL (140-360); RED BLOOD COUNT 2.72 x10e6/uL (3.6-5.1); RED CELL DISTRIBUTION WIDTH 20.8 % (11.7-14.4)
[2020-08-19] MEDS: HEPARIN 25,000 UNIT 25,000 UNIT in DEXTROSE 5% 250ML 250 ML IV SCH ×2 (06:38→18:45)
[2020-08-19 06:58] LABS: ALANINE AMINOTRANSFERASE 247 IU/L (0-55); ALBUMIN 2.8 g/dL (3.5-5.0); ALBUMIN/GLOBULIN RATIO 0.7 (0.8-2.0); ALKALINE PHOSPHATASE 130 IU/L (40-150); ANION GAP 13.8 mmol/L (8-16); BLOOD UREA NITROGEN 19 mg/dL (7-26); BUN/CREATININE RATIO 41 (6-25); CALCIUM 7.7 mg/dL (8.4-10.2); CHLORIDE 91 mmol/L (98-107); CREATININE, SERUM 0.46 mg/dL (0.57-1.11); EST GLOMERULAR FILTRATION RATE > 60 ML/MIN (60-); GLUCOSE 159 mg/dL (74-118); SODIUM 144 mmol/L (136-145)
[2020-08-19 07:16] LABS: CARBON DIOXIDE 42 mmol/L (22-29); POTASSIUM 2.8 mmol/L (3.5-5.1)
[2020-08-19 08:09] LABS: ANISOCYTOSIS MODERATE; HYPOCHROMASIA MODERATE; PLATELET ESTIMATE SLIGHTLY DECREASED; PLATELET MORPHOLOGY COMMENT FEW LARGE; POLYCHROMASIA FEW; RBC MORPHOLOGY COMMENT ABNORMAL; TEAR DROP CELLS FEW
[2020-08-19] MEDS: POTASSIUM CHLORIDE 20MEQ/100ML 100 ML IV PRN (08:13)
[2020-08-19] MEDS: POTASSIUM CHLORIDE 20MEQ/100ML 200 ML IV PRN (08:43)
[2020-08-19] MEDS: AMIODARONE HCL 200 MG TAB PEG SCH (08:57)
[2020-08-19] MEDS: POTASSIUM CHLORIDE 20 MEQ TAB CR PO SCH ×3 (08:57→21:00)
[2020-08-19] MEDS: ACETAZOLAMIDE 250 MG TAB PO SCH ×2 (08:57→17:25)
[2020-08-19] MEDS: IRON SUCROSE 100 MG in SODIUM CHLORIDE 0.9% 100 ML 100 ML IV SCH (09:52)
[2020-08-19 10:23] LABS: ABG HCO3 47 mmol/L (22-26); ABG PH 7.34 (7.35-7.45); ABG PO2 86 mmHg (80-105); ABG TCO2 50
[2020-08-19 10:24] LABS: ABG PCO2 87 mmHg (35-45)
[2020-08-20] VITALS (26 sets, daily range): BP systolic 100–140; BP diastolic 53–74
[2020-08-20] MEDS: CISATRACURIUM BESYLATE 100 MG in SODIUM CHLORIDE 0.9% 100 ML 50 ML IV PRN ×4 (00:48→21:57)
[2020-08-20] MEDS: MEROPENEM 1GRAM 1 GM in SODIUM CHLORIDE 0.9% 100 ML 100 ML IV SCH ×3 (00:49→17:22)
[2020-08-20] MEDS: FUROSEMIDE INJ 100 MG in SODIUM CHLORIDE 0.9% 100 ML 90 ML IV SCH ×5 (01:54→23:41)
[2020-08-20] MEDS: FENTANYL CITRATE INJ 2,000 MCG in SODIUM CHLORIDE 0.9% 250ML 210 ML IV PRN ×3 (02:28→23:45)
[2020-08-20] MEDS: PROPOFOL IV EMULSION 10MG/ML 100 ML IV SCH ×4 (04:08→21:47)
[2020-08-20] MEDS: MIDAZOLAM HCL 5MG/ML 10ML VIAL 100 ML IV PRN ×3 (05:06→21:33)
[2020-08-20 05:39] LABS: ABG HCO3 49 mmol/L (22-26); ABG PCO2 104 mmHg (35-45); ABG PH 7.28 (7.35-7.45); ABG PO2 78 mmHg (80-105)
[2020-08-20 05:40] LABS: ABG TCO2 50
[2020-08-20 06:15] LABS: BASOPHILS # (AUTO) 0.1 (0.0-0.1); BASOPHILS % 0.8 % (0.0-1.0); EOSINOPHILS # (AUTO) 0.4 (0.0-0.4); EOSINOPHILS % 3.4 % (0.0-6.0); HEMATOCRIT 28.5 % (34.2-44.1); HEMOGLOBIN 8.4 g/dL (12.0-16.0); LYMPHOCYTES # (AUTO) 1.1 (1.0-3.2); LYMPHOCYTES % 9.4 % (18.0-39.1); MEAN CORPUSCULAR HEMOGLOBIN 31.3 pg (28-32); MEAN CORPUSCULAR HGB CONC 29.5 g/dL (31-35); MEAN CORPUSCULAR VOLUME 106.3 fL (81-99); NEUTROPHILS # (AUTO) 8.3 (2.1-6.9); NEUTROPHILS % 70.3 % (38.7-80.0); PLATELET COUNT 160 x10e3/uL (140-360); RED BLOOD COUNT 2.68 x10e6/uL (3.6-5.1); RED CELL DISTRIBUTION WIDTH 20.5 % (11.7-14.4)
[2020-08-20 06:49] LABS: ALANINE AMINOTRANSFERASE 176 IU/L (0-55); ALBUMIN 2.8 g/dL (3.5-5.0); ALBUMIN/GLOBULIN RATIO 0.7 (0.8-2.0); ALKALINE PHOSPHATASE 134 IU/L (40-150); ANION GAP 13.9 mmol/L (8-16); BLOOD UREA NITROGEN 16 mg/dL (7-26); BUN/CREATININE RATIO 36 (6-25); CALCIUM 7.7 mg/dL (8.4-10.2); CHLORIDE 90 mmol/L (98-107); CREATININE, SERUM 0.45 mg/dL (0.57-1.11); EST GLOMERULAR FILTRATION RATE > 60 ML/MIN (60-); GLUCOSE 145 mg/dL (74-118); SODIUM 142 mmol/L (136-145)
[2020-08-20 07:06] LABS: CARBON DIOXIDE 41 mmol/L (22-29); POTASSIUM 2.9 mmol/L (3.5-5.1)
[2020-08-20 08:01] LABS: BAND NEUTROPHILS % (MANUAL) 3 %; LYMPHOCYTES % (MANUAL) 14 % (19-48); MONOCYTES % (MANUAL) 4 % (3.4-9.0); NEUTROPHILS % (MANUAL) 79 % (40-74); NUCLEATED RED BLOOD CELLS 1
[2020-08-20 08:02] LABS: POLYCHROMASIA FEW
[2020-08-20 08:03] LABS: ANISOCYTOSIS SLIG; HYPOCHROMASIA SLIGHT; MICROCYTOSIS SLIG; PLATELET ESTIMATE ADEQUATE; PLATELET MORPHOLOGY COMMENT FEW LARGE; POIKILOCYTOSIS SLIGHT; RBC MORPHOLOGY COMMENT ABNORMAL
[2020-08-20] MEDS: ACETAZOLAMIDE 250 MG TAB PO SCH ×2 (08:55→17:22)
[2020-08-20] MEDS: AMIODARONE HCL 200 MG TAB PEG SCH (08:55)
[2020-08-20] MEDS: POTASSIUM CHLORIDE 20 MEQ TAB CR PO SCH ×3 (08:55→21:34)
[2020-08-20] MEDS: IRON SUCROSE 100 MG in SODIUM CHLORIDE 0.9% 100 ML 100 ML IV SCH (10:32)
[2020-08-20] MEDS: LEVOTHYROXINE SODIUM 100 MCG/VIAL IV SCH (10:32)
[2020-08-20] MEDS: POTASSIUM CHLORIDE 20MEQ/100ML 200 ML IV PRN (10:33)
[2020-08-20] MEDS: HEPARIN 25,000 UNIT 25,000 UNIT in DEXTROSE 5% 250ML 250 ML IV SCH (12:21)
[2020-08-20 14:49] LABS: ABG PCO2 87 mmHg (35-45); ABG PH 7.32 (7.35-7.45); ABG PO2 70 mmHg (80-105)
[2020-08-20 14:50] LABS: ABG HCO3 45 mmol/L (22-26); ABG TCO2 48
[2020-08-20] MEDS ORDERED: HEPARIN SOD (PORCINE) 1000 UNIT/ML SDV ONE (18:36)
[2020-08-20] MEDS ORDERED: SODIUM CHLORIDE 0.9% 250ML 500 ML IV PRN (18:45)
[2020-08-20] MEDS ORDERED: SODIUM CHLORIDE 0.9% 1000ML 2,000 ML IV PRN (18:45)
[2020-08-20] MEDS ORDERED: HEPARIN SOD (PORCINE) 1000 UNIT/ML SDV IV PRN (18:45)
[2020-08-21] VITALS (26 sets, daily range): BP systolic 95–120; BP diastolic 52–66
[2020-08-21] MEDS: MEROPENEM 1GRAM 1 GM in SODIUM CHLORIDE 0.9% 100 ML 100 ML IV SCH ×3 (01:05→16:51)
[2020-08-21] MEDS: PROPOFOL IV EMULSION 10MG/ML 100 ML IV SCH ×6 (01:12→22:00)
[2020-08-21] MEDS: CISATRACURIUM BESYLATE 100 MG in SODIUM CHLORIDE 0.9% 100 ML 50 ML IV PRN ×4 (02:00→22:15)
[2020-08-21] MEDS: MIDAZOLAM HCL 5MG/ML 10ML VIAL 100 ML IV PRN ×4 (02:22→21:51)
[2020-08-21] MEDS: MAGNESIUM HYDROXIDE 30 ML UDC PO PRN (05:24)
[2020-08-21 06:19] LABS: BASOPHILS % 0.8 % (0.0-1.0); EOSINOPHILS % 5.2 % (0.0-6.0); HEMATOCRIT 28.1 % (34.2-44.1); HEMOGLOBIN 8.2 g/dL (12.0-16.0); LYMPHOCYTES # (AUTO) 1.1 (1.0-3.2); LYMPHOCYTES % 8.9 % (18.0-39.1); MEAN CORPUSCULAR HEMOGLOBIN 31.3 pg (28-32); MEAN CORPUSCULAR HGB CONC 29.2 g/dL (31-35); MEAN CORPUSCULAR VOLUME 107.3 fL (81-99); MONOCYTES # (AUTO) 0.9 (0.2-0.8); MONOCYTES % 7.9 % (4.4-11.3); NEUTROPHILS # (AUTO) 8.2 (2.1-6.9); NEUTROPHILS % 69.4 % (38.7-80.0); PLATELET COUNT 125 x10e3/uL (140-360); RED BLOOD COUNT 2.62 x10e6/uL (3.6-5.1); RED CELL DISTRIBUTION WIDTH 21.1 % (11.7-14.4)
[2020-08-21 06:20] LABS: BASOPHILS # (AUTO) 0.1 (0.0-0.1); EOSINOPHILS # (AUTO) 0.6 (0.0-0.4)
[2020-08-21] MEDS: FENTANYL CITRATE INJ 2,000 MCG in SODIUM CHLORIDE 0.9% 250ML 210 ML IV PRN ×3 (06:45→20:05)
[2020-08-21] MEDS: FUROSEMIDE INJ 100 MG in SODIUM CHLORIDE 0.9% 100 ML 90 ML IV SCH ×2 (06:45→12:13)
[2020-08-21 06:49] LABS: ALANINE AMINOTRANSFERASE 118 IU/L (0-55); ALBUMIN 2.6 g/dL (3.5-5.0); ALBUMIN/GLOBULIN RATIO 0.6 (0.8-2.0); ALKALINE PHOSPHATASE 117 IU/L (40-150); ANION GAP 12.2 mmol/L (8-16); BLOOD UREA NITROGEN 14 mg/dL (7-26); BUN/CREATININE RATIO 32 (6-25); CALCIUM 7.6 mg/dL (8.4-10.2); CHLORIDE 92 mmol/L (98-107); CREATININE, SERUM 0.44 mg/dL (0.57-1.11); EST GLOMERULAR FILTRATION RATE > 60 ML/MIN (60-); GLUCOSE 139 mg/dL (74-118); POTASSIUM 3.2 mmol/L (3.5-5.1); SODIUM 143 mmol/L (136-145)
[2020-08-21 06:56] LABS: CARBON DIOXIDE 42 mmol/L (22-29)
[2020-08-21 07:53] LABS: PLATELET ESTIMATE SLIGHTLY DECREASED; RBC MORPHOLOGY COMMENT ABNORMAL
[2020-08-21 07:54] LABS: ANISOCYTOSIS MODERATE; PLATELET MORPHOLOGY COMMENT FEW LARGE; POLYCHROMASIA FEW
[2020-08-21 08:20] LABS: ABG HCO3 46 mmol/L (22-26); ABG PCO2 85 mmHg (35-45); ABG PH 7.35 (7.35-7.45); ABG PO2 73 mmHg (80-105); ABG TCO2 49
[2020-08-21] MEDS: ACETAZOLAMIDE 250 MG TAB PO SCH ×2 (09:01→16:51)
[2020-08-21] MEDS: AMIODARONE HCL 200 MG TAB PEG SCH (09:01)
[2020-08-21] MEDS: POTASSIUM CHLORIDE 20 MEQ TAB CR PO SCH ×3 (09:02→21:50)
[2020-08-21] MEDS: POTASSIUM CHLORIDE 20MEQ/100ML 100 ML IV PRN (09:50)
[2020-08-21] MEDS: IRON SUCROSE 100 MG in SODIUM CHLORIDE 0.9% 100 ML 100 ML IV SCH (09:50)
[2020-08-21] MEDS ORDERED: FENTANYL 2,000 MCG/250 ML BAG ONE (12:59)
[2020-08-21] MEDS ORDERED: PROPOFOL IV EMULSION 10MG/ML 100ML BTL ONE (12:59)
[2020-08-21] MEDS ORDERED: PROPOFOL IV EMULSION 10 MG/ML 50 ML VIAL IV ONE (12:59)
[2020-08-21] MEDS ORDERED: MIDAZOLAM HCL 5MG/ML 10ML VIAL 100 ML BAG IV ONE (12:59)
[2020-08-21] MEDS ORDERED: ALBUMIN 25% 12.5GM 0.25 GM/ML BTL IV PRN (15:45)
[2020-08-21] MEDS: HEPARIN 25,000 UNIT 25,000 UNIT in DEXTROSE 5% 250ML 250 ML IV SCH (17:59)
[2020-08-22] VITALS (26 sets, daily range): BP systolic 103–130; BP diastolic 55–69
[2020-08-22] MEDS: MEROPENEM 1GRAM 1 GM in SODIUM CHLORIDE 0.9% 100 ML 100 ML IV SCH (01:39)
[2020-08-22] MEDS: PROPOFOL IV EMULSION 10MG/ML 100 ML IV SCH ×6 (01:39→23:05)
[2020-08-22] MEDS ORDERED: BISACODYL 10 MG SUPP PR ONE (02:15)
[2020-08-22] MEDS: HEPARIN 25,000 UNIT 25,000 UNIT in DEXTROSE 5% 250ML 250 ML IV SCH (02:45)
[2020-08-22] MEDS: FUROSEMIDE INJ 100 MG in SODIUM CHLORIDE 0.9% 100 ML 90 ML IV SCH ×4 (02:56→17:36)
[2020-08-22] MEDS: MIDAZOLAM HCL 5MG/ML 10ML VIAL 100 ML IV PRN ×5 (02:57→19:57)
[2020-08-22] MEDS: FENTANYL CITRATE INJ 2,000 MCG in SODIUM CHLORIDE 0.9% 250ML 210 ML IV PRN ×4 (02:57→16:37)
[2020-08-22] MEDS: CISATRACURIUM BESYLATE 100 MG in SODIUM CHLORIDE 0.9% 100 ML 50 ML IV PRN ×4 (05:12→23:30)
[2020-08-22 06:25] LABS: BASOPHILS # (AUTO) 0.1 (0.0-0.1); BASOPHILS % 0.9 % (0.0-1.0); EOSINOPHILS # (AUTO) 0.3 (0.0-0.4); EOSINOPHILS % 2.9 % (0.0-6.0); HEMATOCRIT 26.6 % (34.2-44.1); LYMPHOCYTES # (AUTO) 1.1 (1.0-3.2); LYMPHOCYTES % 9.2 % (18.0-39.1); MEAN CORPUSCULAR HGB CONC 30.1 g/dL (31-35); MEAN CORPUSCULAR VOLUME 106.4 fL (81-99); MONOCYTES # (AUTO) 0.8 (0.2-0.8); MONOCYTES % 7.2 % (4.4-11.3); NEUTROPHILS # (AUTO) 7.9 (2.1-6.9); NEUTROPHILS % 69.1 % (38.7-80.0); PLATELET COUNT 154 x10e3/uL (140-360); RED CELL DISTRIBUTION WIDTH 21.2 % (11.7-14.4)
[2020-08-22 06:49] LABS: ALANINE AMINOTRANSFERASE 84 IU/L (0-55); ALBUMIN/GLOBULIN RATIO 0.7 (0.8-2.0); ALKALINE PHOSPHATASE 112 IU/L (40-150); ANION GAP 12.8 mmol/L (8-16); BLOOD UREA NITROGEN 11 mg/dL (7-26); BUN/CREATININE RATIO 26 (6-25); CALCIUM 7.7 mg/dL (8.4-10.2); CHLORIDE 90 mmol/L (98-107); CREATININE, SERUM 0.42 mg/dL (0.57-1.11); EST GLOMERULAR FILTRATION RATE > 60 ML/MIN (60-); GLUCOSE 123 mg/dL (74-118); SODIUM 142 mmol/L (136-145)
[2020-08-22 07:07] LABS: MAGNESIUM 1.9 MG/DL (1.3-2.1); PHOSPHORUS 2.2 MG/DL (2.3-4.7)
[2020-08-22 07:22] LABS: CARBON DIOXIDE 42 mmol/L (22-29); POTASSIUM 2.8 mmol/L (3.5-5.1)
[2020-08-22 08:37] LABS: PLATELET ESTIMATE ADEQUATE; PLATELET MORPHOLOGY COMMENT NORMAL; RBC MORPHOLOGY COMMENT ABNORMAL
[2020-08-22] MEDS ORDERED: POTASSIUM CHLORIDE 20MEQ/15ML UDC PEG SCH (09:00)
[2020-08-22 09:14] LABS: ABG HCO3 46 mmol/L (22-26); ABG PCO2 84 mmHg (35-45); ABG PH 7.35 (7.35-7.45); ABG PO2 75 mmHg (80-105); ABG TCO2 48
[2020-08-22] MEDS: AMIODARONE HCL 200 MG TAB PEG SCH (09:23)
[2020-08-22] MEDS: KCL 20 MEQ PACKET/ ORAL SOLN PEG SCH ×3 (09:23→20:59)
[2020-08-22] MEDS: ACETAZOLAMIDE 250 MG TAB PO SCH ×2 (09:23→17:36)
[2020-08-22] MEDS: IRON SUCROSE 100 MG in SODIUM CHLORIDE 0.9% 100 ML 100 ML IV SCH (09:57)
[2020-08-22] MEDS ORDERED: KCL 20MEQ/.9 SOD CHL 1,000 ML IV PRN (10:45)
[2020-08-22] MEDS: POTASSIUM CHLORIDE 20MEQ/100ML 100 ML IV PRN (11:23)
[2020-08-22] MEDS ORDERED: HEPARIN SOD (PORCINE) 1000 UNIT/ML SDV IV PRN (14:15)
[2020-08-22] MEDS: MAGNESIUM HYDROXIDE 30 ML UDC PO PRN (23:13)
[2020-08-23] VITALS (25 sets, daily range): BP systolic 74–136; BP diastolic 44–73
[2020-08-23] MEDS: FENTANYL CITRATE INJ 2,000 MCG in SODIUM CHLORIDE 0.9% 250ML 210 ML IV PRN (00:15)
[2020-08-23] MEDS: FUROSEMIDE INJ 100 MG in SODIUM CHLORIDE 0.9% 100 ML 90 ML IV SCH ×2 (00:40→07:29)
[2020-08-23] MEDS: MIDAZOLAM HCL 5MG/ML 10ML VIAL 100 ML IV PRN ×3 (00:40→21:35)
[2020-08-23] MEDS: PROPOFOL IV EMULSION 10MG/ML 100 ML IV SCH ×2 (02:58→21:35)
[2020-08-23] MEDS: CISATRACURIUM BESYLATE 100 MG in SODIUM CHLORIDE 0.9% 100 ML 50 ML IV PRN ×2 (04:09→22:00)
[2020-08-23] MEDS: METOCLOPRAMIDE HCL 10 MG/2ML VIAL IV SCH ×3 (06:00→18:45)
[2020-08-23 06:11] LABS: BASOPHILS # (AUTO) 0.1 (0.0-0.1); EOSINOPHILS # (AUTO) 0.5 (0.0-0.4); HEMATOCRIT 28.3 % (34.2-44.1); HEMOGLOBIN 8.5 g/dL (12.0-16.0); LYMPHOCYTES # (AUTO) 1.3 (1.0-3.2); LYMPHOCYTES % 10.9 % (18.0-39.1); MEAN CORPUSCULAR HEMOGLOBIN 32.3 pg (28-32); MEAN CORPUSCULAR VOLUME 107.6 fL (81-99); MONOCYTES % 8.1 % (4.4-11.3); PLATELET COUNT 137 x10e3/uL (140-360); RED BLOOD COUNT 2.63 x10e6/uL (3.6-5.1); RED CELL DISTRIBUTION WIDTH 22.2 % (11.7-14.4)
[2020-08-23 06:26] LABS: ALANINE AMINOTRANSFERASE 66 IU/L (0-55); ALBUMIN 2.9 g/dL (3.5-5.0); ALBUMIN/GLOBULIN RATIO 0.7 (0.8-2.0); ALKALINE PHOSPHATASE 118 IU/L (40-150); ANION GAP 12.2 mmol/L (8-16); BLOOD UREA NITROGEN 11 mg/dL (7-26); BUN/CREATININE RATIO 25 (6-25); CALCIUM 7.6 mg/dL (8.4-10.2); CHLORIDE 91 mmol/L (98-107); CREATININE, SERUM 0.44 mg/dL (0.57-1.11); EST GLOMERULAR FILTRATION RATE > 60 ML/MIN (60-); GLUCOSE 143 mg/dL (74-118); POTASSIUM 3.2 mmol/L (3.5-5.1); SODIUM 142 mmol/L (136-145)
[2020-08-23 06:28] LABS: CARBON DIOXIDE 42 mmol/L (22-29)
[2020-08-23] MEDS: POTASSIUM CHLORIDE 20MEQ/100ML 100 ML IV PRN (08:07)
[2020-08-23 08:50] LABS: ABG HCO3 46 mmol/L (22-26); ABG PCO2 92 mmHg (35-45); ABG PH 7.31 (7.35-7.45); ABG PO2 68 mmHg (80-105); ABG TCO2 49
[2020-08-23] MEDS: KCL 20 MEQ PACKET/ ORAL SOLN PEG SCH ×3 (09:33→20:55)
[2020-08-23] MEDS: ACETAZOLAMIDE 250 MG TAB PO SCH ×2 (09:33→18:45)
[2020-08-23] MEDS: AMIODARONE HCL 200 MG TAB PEG SCH (09:33)
[2020-08-23] MEDS: IRON SUCROSE 100 MG in SODIUM CHLORIDE 0.9% 100 ML 100 ML IV SCH (10:22)
[2020-08-23] MEDS: ACETAMINOPHEN 325 MG TAB PO PRN (10:30)
[2020-08-23] MEDS ORDERED: CEFEPIME HCL 1 GM VIAL IV SCH (14:00)
[2020-08-23] MEDS ORDERED: SODIUM CHLORIDE 0.9% 250ML 250 ML IV NR (15:30)
[2020-08-23] MEDS ORDERED: SODIUM BICARBONATE 8.4% INJ 50 ML SYR IV STA ×2 (16:16→21:51)
[2020-08-23] MEDS ORDERED: ALBUMIN 25% 25GM 100ML 0.25 GM/ML BTL IV NR (16:45)
[2020-08-23 16:54] LABS: BASOPHILS # (AUTO) 0.1 (0.0-0.1); BASOPHILS % 0.4 % (0.0-1.0); EOSINOPHILS # (AUTO) 0.4 (0.0-0.4); EOSINOPHILS % 1.5 % (0.0-6.0); LYMPHOCYTES # (AUTO) 4.8 (1.0-3.2); LYMPHOCYTES % 17.9 % (18.0-39.1); MEAN CORPUSCULAR HEMOGLOBIN 33.8 pg (28-32); MEAN CORPUSCULAR HGB CONC 28.8 g/dL (31-35); MEAN CORPUSCULAR VOLUME 117.7 fL (81-99); MONOCYTES # (AUTO) 2.5 (0.2-0.8); MONOCYTES % 9.4 % (4.4-11.3); NEUTROPHILS # (AUTO) 14.5 (2.1-6.9); NEUTROPHILS % 53.8 % (38.7-80.0); PLATELET COUNT 126 x10e3/uL (140-360); RED CELL DISTRIBUTION WIDTH 22.1 % (11.7-14.4)
[2020-08-23 16:56] LABS: ABG HCO3 31 mmol/L (22-26); ABG PCO2 104 mmHg (35-45); ABG PH 7.08 (7.35-7.45); ABG PO2 79 mmHg (80-105)
[2020-08-23 16:57] LABS: ABG TCO2 34
[2020-08-23 16:59] LABS: HEMATOCRIT 15.3 % (34.2-44.1); HEMOGLOBIN 4.4 g/dL (12.0-16.0)
[2020-08-23] MEDS: FLUCONAZOLE 200 MG/100 ML 100 ML IV SCH (17:00)
[2020-08-23] MEDS: METRONIDAZOLE 500MG/NS 100ML 100 ML IV SCH ×2 (17:00→22:00)
[2020-08-23] MEDS: CEFEPIME HCL 1GM 1 GM in SODIUM CHLORIDE 0.9% 50ML 50 ML IV SCH ×2 (17:00→22:36)
[2020-08-23] MEDS ORDERED: SODIUM CHLORIDE 0.9% 250ML 250 ML IV ONE (17:15)
[2020-08-23] MEDS: LINEZOLID 600 MG/D5W 300ML 300 ML IV SCH (18:45)
[2020-08-23] MEDS: NOREPINEPHRINE 8 MG/D5W 250 ML 250 ML IV PRN (19:00)
[2020-08-23] MEDS: FENTANYL 2000MCG/NS 250 250 ML IV PRN (19:00)
[2020-08-23 21:44] LABS: ABG PCO2 99 mmHg (35-45); ABG PH 7.18 (7.35-7.45)
[2020-08-23 21:45] LABS: ABG HCO3 37 mmol/L (22-26); ABG PO2 52 mmHg (80-105); ABG TCO2 40
[2020-08-23 22:38] LABS: BASOPHILS # (AUTO) 0.5 (0.0-0.1); BASOPHILS % 1.4 % (0.0-1.0); EOSINOPHILS # (AUTO) 0.2 (0.0-0.4); EOSINOPHILS % 0.7 % (0.0-6.0); HEMATOCRIT 29.3 % (34.2-44.1); HEMOGLOBIN 9.4 g/dL (12.0-16.0); LYMPHOCYTES # (AUTO) 1.8 (1.0-3.2); LYMPHOCYTES % 5.6 % (18.0-39.1); MEAN CORPUSCULAR HGB CONC 32.1 g/dL (31-35); MEAN CORPUSCULAR VOLUME 93.6 fL (81-99); MONOCYTES # (AUTO) 2.2 (0.2-0.8); MONOCYTES % 6.9 % (4.4-11.3); NEUTROPHILS # (AUTO) 23.5 (2.1-6.9); NEUTROPHILS % 75.4 % (38.7-80.0); PLATELET COUNT 102 x10e3/uL (140-360); RED BLOOD COUNT 3.13 x10e6/uL (3.6-5.1); RED CELL DISTRIBUTION WIDTH 23.7 % (11.7-14.4)
[2020-08-24] VITALS (52 sets, daily range): BP systolic 99–130; BP diastolic 43–60
[2020-08-24] MEDS: CISATRACURIUM BESYLATE 100 MG in SODIUM CHLORIDE 0.9% 100 ML 50 ML IV PRN ×4 (03:00→20:40)
[2020-08-24] MEDS: MIDAZOLAM HCL 5MG/ML 10ML VIAL 100 ML IV PRN ×4 (03:00→23:55)
[2020-08-24] MEDS: LINEZOLID 600 MG/D5W 300ML 300 ML IV SCH ×2 (04:03→16:39)
[2020-08-24] MEDS: ACETAMINOPHEN 325 MG TAB PO PRN (04:05)
[2020-08-24] MEDS: FENTANYL 2000MCG/NS 250 250 ML IV PRN ×3 (04:20→18:29)
[2020-08-24] MEDS: VASOPRESSIN 60 UNIT in DEXTROSE 5% 50ML 57 ML IV PRN ×2 (04:20→17:30)
[2020-08-24] MEDS: NOREPINEPHRINE 8 MG/D5W 250 ML 250 ML IV PRN ×3 (05:00→23:30)
[2020-08-24] MEDS: METOCLOPRAMIDE HCL 10 MG/2ML VIAL IV SCH ×5 (05:38→23:29)
[2020-08-24] MEDS: METRONIDAZOLE 500MG/NS 100ML 100 ML IV SCH ×3 (05:38→21:40)
[2020-08-24] MEDS: CEFEPIME HCL 1GM 1 GM in SODIUM CHLORIDE 0.9% 50ML 50 ML IV SCH ×3 (05:39→21:08)
[2020-08-24 05:48] LABS: BASOPHILS # (AUTO) 0.2 (0.0-0.1); BASOPHILS % 0.5 % (0.0-1.0); EOSINOPHILS # (AUTO) 0.3 (0.0-0.4); EOSINOPHILS % 0.6 % (0.0-6.0); HEMATOCRIT 28.6 % (34.2-44.1); LYMPHOCYTES % 4.9 % (18.0-39.1); MEAN CORPUSCULAR HEMOGLOBIN 29.5 pg (28-32); MEAN CORPUSCULAR HGB CONC 31.5 g/dL (31-35); MEAN CORPUSCULAR VOLUME 93.8 fL (81-99); MONOCYTES # (AUTO) 3.6 (0.2-0.8); NEUTROPHILS # (AUTO) 30.4 (2.1-6.9); NEUTROPHILS % 76.7 % (38.7-80.0); PLATELET COUNT 146 x10e3/uL (140-360); RED BLOOD COUNT 3.05 x10e6/uL (3.6-5.1); RED CELL DISTRIBUTION WIDTH 24.4 % (11.7-14.4)
[2020-08-24] MEDS: PROPOFOL IV EMULSION 10MG/ML 100 ML IV SCH ×2 (06:01→12:10)
[2020-08-24 06:12] LABS: ALANINE AMINOTRANSFERASE 1428 IU/L (0-55); ALBUMIN 2.3 g/dL (3.5-5.0); ALBUMIN/GLOBULIN RATIO 0.7 (0.8-2.0); ALKALINE PHOSPHATASE 129 IU/L (40-150); ANION GAP 18.3 mmol/L (8-16); BLOOD UREA NITROGEN 24 mg/dL (7-26); BUN/CREATININE RATIO 32 (6-25); CARBON DIOXIDE 35 mmol/L (22-29); CHLORIDE 92 mmol/L (98-107); CREATININE, SERUM 0.75 mg/dL (0.57-1.11); EST GLOMERULAR FILTRATION RATE > 60 ML/MIN (60-); GLUCOSE 212 mg/dL (74-118); POTASSIUM 4.3 mmol/L (3.5-5.1); SODIUM 141 mmol/L (136-145)
[2020-08-24 06:25] LABS: CALCIUM 6.7 mg/dL (8.4-10.2)
[2020-08-24 08:58] LABS: BAND NEUTROPHILS % (MANUAL) 9 %; EOSINOPHILS % (MANUAL) 3 % (0-7); LYMPHOCYTES % (MANUAL) 8 % (19-48); METAMYELOCYTES % (MANUAL) 6 % (0-0); MYELOCYTES % (MANUAL) 2 % (0-0); NEUTROPHILS % (MANUAL) 70 % (40-74); NUCLEATED RED BLOOD CELLS 19; PROMYELOCYTES % (MANUAL) 1 % (0-0); SMUDGE CELLS FEW
[2020-08-24 08:59] LABS: PLATELET ESTIMATE ADEQUATE
[2020-08-24 09:00] LABS: PLATELET MORPHOLOGY COMMENT FEW GIANT
[2020-08-24] MEDS: KCL 20 MEQ PACKET/ ORAL SOLN PEG SCH (09:00)
[2020-08-24 09:15] LABS: ABG HCO3 40 mmol/L (22-26); ABG PCO2 96 mmHg (35-45); ABG PH 7.22 (7.35-7.45); ABG PO2 58 mmHg (80-105); ABG TCO2 42
[2020-08-24] MEDS: AMIODARONE HCL 200 MG TAB PEG SCH (09:45)
[2020-08-24] MEDS: ACETAZOLAMIDE 250 MG TAB PO SCH (09:45)
[2020-08-24] MEDS: IRON SUCROSE 100 MG in SODIUM CHLORIDE 0.9% 100 ML 100 ML IV SCH (10:02)
[2020-08-24] MEDS: FAMOTIDINE 20 MG/2 ML VIAL IV SCH ×2 (10:40→20:49)
[2020-08-24] MEDS: FLUCONAZOLE 200 MG/100 ML 100 ML IV SCH (13:03)
[2020-08-24 17:43] LABS: ABG HCO3 38 mmol/L (22-26); ABG PCO2 85 mmHg (35-45); ABG PH 7.25 (7.35-7.45); ABG PO2 66 mmHg (80-105); ABG TCO2 40
[2020-08-24 17:53] LABS: BASOPHILS # (AUTO) 0.2 (0.0-0.1); BASOPHILS % 0.7 % (0.0-1.0); EOSINOPHILS # (AUTO) 0.1 (0.0-0.4); EOSINOPHILS % 0.3 % (0.0-6.0); HEMATOCRIT 25.2 % (34.2-44.1); HEMOGLOBIN 7.7 g/dL (12.0-16.0); LYMPHOCYTES # (AUTO) 1.5 (1.0-3.2); LYMPHOCYTES % 5.7 % (18.0-39.1); MEAN CORPUSCULAR HEMOGLOBIN 28.8 pg (28-32); MEAN CORPUSCULAR HGB CONC 30.6 g/dL (31-35); MEAN CORPUSCULAR VOLUME 94.4 fL (81-99); MONOCYTES # (AUTO) 1.9 (0.2-0.8); MONOCYTES % 7.3 % (4.4-11.3); NEUTROPHILS # (AUTO) 21.2 (2.1-6.9); PLATELET COUNT 109 x10e3/uL (140-360); RED BLOOD COUNT 2.67 x10e6/uL (3.6-5.1); RED CELL DISTRIBUTION WIDTH 24.4 % (11.7-14.4)
[2020-08-24 19:44] LABS: ANISOCYTOSIS SLIGHT; BAND NEUTROPHILS % (MANUAL) 5 %; EOSINOPHILS % (MANUAL) 1 % (0-7); HYPOCHROMASIA MODERATE; LYMPHOCYTES % (MANUAL) 6 % (19-48); MONOCYTES % (MANUAL) 1 % (3.4-9.0); MYELOCYTES % (MANUAL) 1 % (0-0); NEUTROPHILS % (MANUAL) 84 % (40-74); NUCLEATED RED BLOOD CELLS 3; POIKILOCYTOSIS SLIGHT; PROMYELOCYTES % (MANUAL) 2 % (0-0)
[2020-08-24 19:45] LABS: PLATELET ESTIMATE SLIGHTLY DECREASED; PLATELET MORPHOLOGY COMMENT FEW LARGE; RBC MORPHOLOGY COMMENT ABNORMAL
[2020-08-25] VITALS (25 sets, daily range): BP systolic 104–130; BP diastolic 47–57
[2020-08-25] MEDS: FENTANYL 2000MCG/NS 250 250 ML IV PRN ×4 (00:32→22:19)
[2020-08-25] MEDS: CISATRACURIUM BESYLATE 100 MG in SODIUM CHLORIDE 0.9% 100 ML 50 ML IV PRN ×5 (00:32→19:30)
[2020-08-25] MEDS: PROPOFOL IV EMULSION 10MG/ML 100 ML IV SCH (02:30)
[2020-08-25] MEDS: LINEZOLID 600 MG/D5W 300ML 300 ML IV SCH ×2 (04:01→16:56)
[2020-08-25] MEDS: CEFEPIME HCL 1GM 1 GM in SODIUM CHLORIDE 0.9% 50ML 50 ML IV SCH ×3 (05:04→21:05)
[2020-08-25] MEDS: METOCLOPRAMIDE HCL 10 MG/2ML VIAL IV SCH ×4 (05:04→23:23)
[2020-08-25] MEDS: MIDAZOLAM HCL 5MG/ML 10ML VIAL 100 ML IV PRN ×3 (05:06→15:31)
[2020-08-25 06:04] LABS: HEMOGLOBIN 7.1 g/dL (12.0-16.0); MEAN CORPUSCULAR HEMOGLOBIN 29.1 pg (28-32); MEAN CORPUSCULAR HGB CONC 30.9 g/dL (31-35); MEAN CORPUSCULAR VOLUME 94.3 fL (81-99); PLATELET COUNT 115 x10e3/uL (140-360); RED BLOOD COUNT 2.44 x10e6/uL (3.6-5.1); RED CELL DISTRIBUTION WIDTH 24.9 % (11.7-14.4)
[2020-08-25 06:20] LABS: ALANINE AMINOTRANSFERASE 1167 IU/L (0-55); ALBUMIN 2.1 g/dL (3.5-5.0); ALBUMIN/GLOBULIN RATIO 0.8 (0.8-2.0); ALKALINE PHOSPHATASE 108 IU/L (40-150); ANION GAP 16.2 mmol/L (8-16); BLOOD UREA NITROGEN 34 mg/dL (7-26); BUN/CREATININE RATIO 34 (6-25); CARBON DIOXIDE 33 mmol/L (22-29); CHLORIDE 91 mmol/L (98-107); CREATININE, SERUM 1.01 mg/dL (0.57-1.11); EST GLOMERULAR FILTRATION RATE > 60 ML/MIN (60-); GLUCOSE 144 mg/dL (74-118); POTASSIUM 4.2 mmol/L (3.5-5.1); SODIUM 136 mmol/L (136-145)
[2020-08-25] MEDS: METRONIDAZOLE 500MG/NS 100ML 100 ML IV SCH ×3 (06:21→21:45)
[2020-08-25 06:24] LABS: CALCIUM 6.5 mg/dL (8.4-10.2)
[2020-08-25 06:48] LABS: BAND NEUTROPHILS % (MANUAL) 2 %; EOSINOPHILS % (MANUAL) 2 % (0-7); LYMPHOCYTES % (MANUAL) 8 % (19-48); MONOCYTES % (MANUAL) 2 % (3.4-9.0); MYELOCYTES % (MANUAL) 3 % (0-0); NEUTROPHILS % (MANUAL) 83 % (40-74); NUCLEATED RED BLOOD CELLS 1
[2020-08-25 06:49] LABS: ANISOCYTOSIS MARKED; POLYCHROMASIA FEW; RBC MORPHOLOGY COMMENT ABNORMAL
[2020-08-25 06:50] LABS: HYPOCHROMASIA SLIGHT
[2020-08-25 06:51] LABS: PLATELET ESTIMATE SLIGHTLY DECREASED; PLATELET MORPHOLOGY COMMENT NORMAL
[2020-08-25] MEDS: FAMOTIDINE 20 MG/2 ML VIAL IV SCH ×2 (08:49→20:47)
[2020-08-25] MEDS: AMIODARONE HCL 200 MG TAB PEG SCH (08:49)
[2020-08-25] MEDS: PANTOPRAZOLE 40 MG 10ML VIAL IV SCH (08:49)
[2020-08-25] MEDS: IRON SUCROSE 100 MG in SODIUM CHLORIDE 0.9% 100 ML 100 ML IV SCH (09:57)
[2020-08-25 09:58] LABS: ABG HCO3 36 mmol/L (22-26); ABG PCO2 78 mmHg (35-45); ABG PH 7.26 (7.35-7.45); ABG PO2 93 mmHg (80-105); ABG TCO2 38
[2020-08-25] MEDS ORDERED: MIDAZOLAM HCL 5MG/ML 10ML VIAL 100 ML BAG IV ONE (12:48)
[2020-08-25] MEDS ORDERED: FENTANYL 2,000 MCG/250 ML BAG ONE (12:48)
[2020-08-25] MEDS ORDERED: PROPOFOL IV EMULSION 10 MG/ML 50 ML VIAL IV ONE (12:48)
[2020-08-25] MEDS: FLUCONAZOLE 200 MG/100 ML 100 ML IV SCH (13:31)
[2020-08-25] MEDS: NOREPINEPHRINE 8 MG/D5W 250 ML 250 ML IV PRN (14:44)
[2020-08-25] MEDS: MIDAZOLAM HCL 5MG/ML 10ML VIAL 100 ML IV SCH ×2 (18:22→20:42)
[2020-08-26] VITALS (29 sets, daily range): BP systolic 100–135; BP diastolic 45–68
[2020-08-26] MEDS: CISATRACURIUM BESYLATE 100 MG in SODIUM CHLORIDE 0.9% 100 ML 50 ML IV PRN ×4 (00:26→23:00)
[2020-08-26] MEDS: MIDAZOLAM HCL 5MG/ML 10ML VIAL 100 ML IV SCH ×4 (00:43→23:00)
[2020-08-26] MEDS: LINEZOLID 600 MG/D5W 300ML 300 ML IV SCH ×2 (04:05→17:15)
[2020-08-26] MEDS: FENTANYL 2000MCG/NS 250 250 ML IV PRN ×2 (05:00→19:45)
[2020-08-26 05:53] LABS: BASOPHILS # (AUTO) 0.1 (0.0-0.1); BASOPHILS % 0.7 % (0.0-1.0); EOSINOPHILS # (AUTO) 0.2 (0.0-0.4); EOSINOPHILS % 0.9 % (0.0-6.0); HEMATOCRIT 23.5 % (34.2-44.1); LYMPHOCYTES # (AUTO) 0.9 (1.0-3.2); LYMPHOCYTES % 4.4 % (18.0-39.1); MEAN CORPUSCULAR HEMOGLOBIN 29.3 pg (28-32); MEAN CORPUSCULAR HGB CONC 29.8 g/dL (31-35); MEAN CORPUSCULAR VOLUME 98.3 fL (81-99); MONOCYTES % 4.7 % (4.4-11.3); NEUTROPHILS # (AUTO) 17.2 (2.1-6.9); NEUTROPHILS % 81.7 % (38.7-80.0); PLATELET COUNT 103 x10e3/uL (140-360); RED BLOOD COUNT 2.39 x10e6/uL (3.6-5.1); RED CELL DISTRIBUTION WIDTH 26.4 % (11.7-14.4)
[2020-08-26] MEDS: CEFEPIME HCL 1GM 1 GM in SODIUM CHLORIDE 0.9% 50ML 50 ML IV SCH ×3 (06:00→21:05)
[2020-08-26] MEDS: METRONIDAZOLE 500MG/NS 100ML 100 ML IV SCH ×3 (06:00→22:00)
[2020-08-26] MEDS: METOCLOPRAMIDE HCL 10 MG/2ML VIAL IV SCH ×3 (06:00→17:47)
[2020-08-26 06:31] LABS: ALBUMIN 2.2 g/dL (3.5-5.0); ALBUMIN/GLOBULIN RATIO 0.7 (0.8-2.0); ANION GAP 17.2 mmol/L (8-16); CREATININE, SERUM 1.34 mg/dL (0.57-1.11); POTASSIUM 4.2 mmol/L (3.5-5.1)
[2020-08-26 06:38] LABS: CALCIUM 6.6 mg/dL (8.4-10.2)
[2020-08-26 08:13] LABS: ABG HCO3 31 mmol/L (22-26); ABG PH 7.16 (7.35-7.45); ABG PO2 83 mmHg (80-105)
[2020-08-26 08:14] LABS: ABG PCO2 87 mmHg (35-45); ABG TCO2 33
[2020-08-26] MEDS: AMIODARONE HCL 200 MG TAB PEG SCH (08:48)
[2020-08-26] MEDS: PANTOPRAZOLE 40 MG 10ML VIAL IV SCH (08:48)
[2020-08-26] MEDS: FAMOTIDINE 20 MG/2 ML VIAL IV SCH ×2 (08:48→20:45)
[2020-08-26 08:59] LABS: LYMPHOCYTES % (MANUAL) 3 % (19-48); MONOCYTES % (MANUAL) 2 % (3.4-9.0); NEUTROPHILS % (MANUAL) 94 % (40-74); SMUDGE CELLS FEW
[2020-08-26] MEDS: IRON SUCROSE 100 MG in SODIUM CHLORIDE 0.9% 100 ML 100 ML IV SCH (09:48)
[2020-08-26] MEDS ORDERED: SODIUM BICARBONATE 8.4% INJ 50 ML SYR IV STA (11:27)
[2020-08-26] MEDS ORDERED: SODIUM BICARBONATE 8.4% 150 ML in DEXTROSE 5% 1,000 ML IV SCH (12:00)
[2020-08-26] MEDS ORDERED: HEPARIN 25,000 UNIT 1,100 UNIT in DEXTROSE 5% 250ML 250 ML IV SCH (12:30)
[2020-08-26] MEDS ORDERED: SODIUM CHLORIDE 0.9% 250ML 250 ML IV NR (12:30)
[2020-08-26] MEDS ORDERED: ACETAMINOPHEN 325 MG TAB PO NR (12:30)
[2020-08-26] MEDS: FLUCONAZOLE 200 MG/100 ML 100 ML IV SCH (13:35)
[2020-08-26 14:21] LABS: INR 1.13; PROTHROMBIN TIME 15.2 seconds (11.9-14.5)
[2020-08-26 14:22] LABS: PARTIAL THROMBOPLASTIN TIME 43.9 seconds (23.8-35.5)
[2020-08-26 14:36] LABS: ABG HCO3 32 mmol/L (22-26); ABG PCO2 103 mmHg (35-45); ABG PO2 55 mmHg (80-105); ABG TCO2 35
[2020-08-26] MEDS ORDERED: CALCIUM GLUCONATE 10% INJ 9.3 MEQ in SODIUM CHLORIDE 0.9% 100 ML 100 ML IV ONE (16:00)
[2020-08-26 17:24] LABS: ABG HCO3 33 mmol/L (22-26); ABG PCO2 103 mmHg (35-45); ABG PH 7.11 (7.35-7.45); ABG PO2 57 mmHg (80-105); ABG TCO2 36
[2020-08-26] MEDS ORDERED: SODIUM BICARBONATE 8.4% 50 ML VIAL IV NR (18:00)
[2020-08-27] VITALS (17 sets, daily range): BP systolic 69–124; BP diastolic 37–62
[2020-08-27] MEDS: METOCLOPRAMIDE HCL 10 MG/2ML VIAL IV SCH ×3 (00:03→12:01)
[2020-08-27] MEDS ORDERED: VECURONIUM BROMIDE FOR INJ 20 MG VIAL IV STA (01:49)
[2020-08-27] MEDS ORDERED: VECURONIUM BROMIDE FOR INJ 20 MG VIAL ONE (02:04)
[2020-08-27] MEDS: FENTANYL 2000MCG/NS 250 250 ML IV PRN ×2 (02:45→10:07)
[2020-08-27] MEDS: MIDAZOLAM HCL 5MG/ML 10ML VIAL 100 ML IV SCH ×3 (03:10→14:20)
[2020-08-27] MEDS: CISATRACURIUM BESYLATE 100 MG in SODIUM CHLORIDE 0.9% 100 ML 50 ML IV PRN ×2 (03:45→11:24)
[2020-08-27] MEDS: LINEZOLID 600 MG/D5W 300ML 300 ML IV SCH (04:05)
[2020-08-27] MEDS: CEFEPIME HCL 1GM 1 GM in SODIUM CHLORIDE 0.9% 50ML 50 ML IV SCH ×2 (05:30→14:10)
[2020-08-27] MEDS: METRONIDAZOLE 500MG/NS 100ML 100 ML IV SCH ×2 (06:00→14:10)
[2020-08-27 06:03] LABS: BASOPHILS # (AUTO) 0.1 (0.0-0.1); BASOPHILS % 0.4 % (0.0-1.0); EOSINOPHILS # (AUTO) 0.1 (0.0-0.4); EOSINOPHILS % 0.5 % (0.0-6.0); HEMATOCRIT 28.2 % (34.2-44.1); HEMOGLOBIN 8.3 g/dL (12.0-16.0); LYMPHOCYTES # (AUTO) 1.5 (1.0-3.2); LYMPHOCYTES % 6.1 % (18.0-39.1); MEAN CORPUSCULAR HEMOGLOBIN 30.2 pg (28-32); MEAN CORPUSCULAR HGB CONC 29.4 g/dL (31-35); MEAN CORPUSCULAR VOLUME 102.5 fL (81-99); MONOCYTES % 7.7 % (4.4-11.3); NEUTROPHILS # (AUTO) 18.2 (2.1-6.9); NEUTROPHILS % 71.4 % (38.7-80.0); PLATELET COUNT 108 x10e3/uL (140-360); RED BLOOD COUNT 2.75 x10e6/uL (3.6-5.1); RED CELL DISTRIBUTION WIDTH 23.9 % (11.7-14.4)
[2020-08-27] MEDS ORDERED: VASOPRESSIN INJ 20 UNIT/ML VIAL ONE ×2 (06:04→06:05)
[2020-08-27] MEDS ORDERED: DEXTROSE 5% 100ML 100 ML IV ONE (06:05)
[2020-08-27 06:30] LABS: ALBUMIN 2.3 g/dL (3.5-5.0); ALBUMIN/GLOBULIN RATIO 0.7 (0.8-2.0); ANION GAP 17.2 mmol/L (8-16); CREATININE, SERUM 1.67 mg/dL (0.57-1.11); POTASSIUM 4.2 mmol/L (3.5-5.1)
[2020-08-27 06:34] LABS: CALCIUM 6.6 mg/dL (8.4-10.2)
[2020-08-27] MEDS ORDERED: SODIUM BICARBONATE 8.4% INJ 50 ML SYR IV STA (06:37)
[2020-08-27] MEDS ORDERED: EPINEPHRINE HCL SYRINGE ONE ×2 (06:48→17:40)
[2020-08-27] MEDS ORDERED: SODIUM BICARBONATE 8.4% 50 ML VIAL IV STA (07:34)
[2020-08-27 07:44] LABS: ABG HCO3 34 mmol/L (22-26); ABG PCO2 124 mmHg (35-45); ABG PH 7.05 (7.35-7.45); ABG PO2 39 mmHg (80-105); ABG TCO2 38
[2020-08-27 07:50] LABS: ANISOCYTOSIS MODERATE; BAND NEUTROPHILS % (MANUAL) 1 %; LYMPHOCYTES % (MANUAL) 8 % (19-48); MONOCYTES % (MANUAL) 6 % (3.4-9.0); MYELOCYTES % (MANUAL) 10 % (0-0); NEUTROPHILS % (MANUAL) 75 % (40-74); NUCLEATED RED BLOOD CELLS 28
[2020-08-27 07:51] LABS: POLYCHROMASIA MODERATE
[2020-08-27 07:52] LABS: TEAR DROP CELLS FEW
[2020-08-27 07:53] LABS: HYPOCHROMASIA SLIGHT
[2020-08-27 07:54] LABS: PLATELET ESTIMATE SLIGHTLY DECREASED; PLATELET MORPHOLOGY COMMENT FEW GIANT
[2020-08-27 07:55] LABS: RBC MORPHOLOGY COMMENT ABNORMAL
[2020-08-27 07:56] LABS: PLATELET CLUMPS RARE
[2020-08-27] MEDS: FAMOTIDINE 20 MG/2 ML VIAL IV SCH (08:47)
[2020-08-27] MEDS: PANTOPRAZOLE 40 MG 10ML VIAL IV SCH (08:47)
[2020-08-27] MEDS: AMIODARONE HCL 200 MG TAB PEG SCH (08:47)
[2020-08-27] MEDS: IRON SUCROSE 100 MG in SODIUM CHLORIDE 0.9% 100 ML 100 ML IV SCH (10:07)
[2020-08-27] MEDS ORDERED: LEVETIRACETAM 500MG/5ML VIAL 500 MG in SODIUM CHLORIDE 0.9% 100 ML 100 ML IV SCH (11:00)
[2020-08-27] MEDS: EPINEPHRINE HCL 1:1000 1ML 4 MG in DEXTROSE 5% 250ML 250 ML IV PRN ×2 (11:22→14:21)
[2020-08-27] MEDS: NOREPINEPHRINE 8 MG/D5W 250 ML 250 ML IV PRN (11:23)
[2020-08-27] MEDS ORDERED: HEPARIN SOD (PORCINE) 1000 UNIT/ML SDV IV PRN (12:45)
[2020-08-27] MEDS ORDERED: PROPOFOL IV EMULSION 10 MG/ML 50 ML VIAL IV ONE (13:28)
[2020-08-27] MEDS ORDERED: FENTANYL 2,000 MCG/250 ML BAG ONE (13:28)
[2020-08-27] MEDS ORDERED: MIDAZOLAM HCL 5MG/ML 10ML VIAL 100 ML BAG IV ONE (13:28)
[2020-08-27] MEDS: FLUCONAZOLE 200 MG/100 ML 100 ML IV SCH (14:10)
[2020-08-27] MEDS ORDERED: DOBUtamine HCL 500MG/D5W 250ML 250 ML IV SCH (14:30)
[2020-08-27 15:57] LABS: ABG PCO2 130 mmHg (35-45); ABG PH 6.83 (7.35-7.45); ABG PO2 35 mmHg (80-105)
[2020-08-27] MEDS ORDERED: SODIUM BICARBONATE 8.4% INJ 50 ML SYR IV ONE (16:38)
[2020-08-27] MEDS ORDERED: CALCIUM CHLORIDE 10% 1.36 MEQ/ML 10ML SYR IV ONE (17:40)
[2020-08-27] MEDS ORDERED: ATROPINE SULFATE 0.1 MG/ML 10ML SYR ONE (17:40)
[2020-08-27] MEDS ORDERED: SODIUM BICARBONATE 8.4% INJ 50 ML SYR ONE (17:40)
== END 2020-08-27 18:58 | disposition expired | DRG 4 ==
LOC: ER 19:31 → ERHOLD 20:31 → IMCU 07-06 10:05 → ICU 07-06 14:25 → COVIDICU 07-27 07:52 → IMCU 08-27 18:00
PROVIDERS: ADMIT Internal Medicine; ATTEND Internal Medicine
PROC: 3E0333Z Introduction of Anti-inflammatory into Peripheral Vein, Percutaneous Approach (ICD-10-PCS; 2020-07-05)
PROC: 8E0ZXY6 Isolation (ICD-10-PCS; 2020-07-05)
PROC: 02HV33Z Insertion of Infusion Device into Superior Vena Cava, Percutaneous Approach (ICD-10-PCS; 2020-07-06)
PROC: B548ZZA Ultrasonography of Superior Vena Cava, Guidance (ICD-10-PCS; 2020-07-06)
PROC: XW14325 Transfusion of Convalescent Plasma (Nonautologous) into Central Vein, Percutaneous Approach, New Technology Group 5 (ICD-10-PCS; 2020-07-09)
PROC: 0BH18EZ Insertion of Endotracheal Airway into Trachea, Via Natural or Artificial Opening Endoscopic (ICD-10-PCS; principal; 2020-07-10)
PROC: 5A1955Z Respiratory Ventilation, Greater than 96 Consecutive Hours (ICD-10-PCS; 2020-07-10)
PROC: 03HB33Z Insertion of Infusion Device into Right Radial Artery, Percutaneous Approach (ICD-10-PCS; 2020-07-11)
PROC: 02HV33Z Insertion of Infusion Device into Superior Vena Cava, Percutaneous Approach (ICD-10-PCS; 2020-07-18)
PROC: B548ZZA Ultrasonography of Superior Vena Cava, Guidance (ICD-10-PCS; 2020-07-18)
PROC: 02PYX3Z Removal of Infusion Device from Great Vessel, External Approach (ICD-10-PCS; 2020-07-19)
PROC: 0B113F4 Bypass Trachea to Cutaneous with Tracheostomy Device, Percutaneous Approach (ICD-10-PCS; 2020-07-21)
PROC: 0DH63UZ Insertion of Feeding Device into Stomach, Percutaneous Approach (ICD-10-PCS; 2020-07-21)
PROC: 30243N1 Transfusion of Nonautologous Red Blood Cells into Central Vein, Percutaneous Approach (ICD-10-PCS; 2020-07-22)
PROC: 0B21XFZ Change Tracheostomy Device in Trachea, External Approach (ICD-10-PCS; 2020-07-23)
PROC: 02HV33Z Insertion of Infusion Device into Superior Vena Cava, Percutaneous Approach (ICD-10-PCS; 2020-07-30)
PROC: B548ZZA Ultrasonography of Superior Vena Cava, Guidance (ICD-10-PCS; 2020-07-30)
PROC: 02HV33Z Insertion of Infusion Device into Superior Vena Cava, Percutaneous Approach (ICD-10-PCS; 2020-08-13)
PROC: B548ZZA Ultrasonography of Superior Vena Cava, Guidance (ICD-10-PCS; 2020-08-13)
PROC: 5A1D70Z Performance of Urinary Filtration, Intermittent, Less than 6 Hours Per Day (ICD-10-PCS; 2020-08-13)
PROC: 5A1D70Z Performance of Urinary Filtration, Intermittent, Less than 6 Hours Per Day (ICD-10-PCS; 2020-08-14)
PROC: 03HY32Z Insertion of Monitoring Device into Upper Artery, Percutaneous Approach (ICD-10-PCS; 2020-08-15)
PROC: 4A133B1 Monitoring of Arterial Pressure, Peripheral, Percutaneous Approach (ICD-10-PCS; 2020-08-15)
PROC: 4A133J1 Monitoring of Arterial Pulse, Peripheral, Percutaneous Approach (ICD-10-PCS; 2020-08-15)
PROC: 5A1D70Z Performance of Urinary Filtration, Intermittent, Less than 6 Hours Per Day (ICD-10-PCS; 2020-08-15)
PROC: 5A1D70Z Performance of Urinary Filtration, Intermittent, Less than 6 Hours Per Day (ICD-10-PCS; 2020-08-16)
PROC: 0W9930Z Drainage of Right Pleural Cavity with Drainage Device, Percutaneous Approach (ICD-10-PCS; 2020-08-18)
PROC: 5A1D70Z Performance of Urinary Filtration, Intermittent, Less than 6 Hours Per Day (ICD-10-PCS; 2020-08-18)
PROC: 5A1D70Z Performance of Urinary Filtration, Intermittent, Less than 6 Hours Per Day (ICD-10-PCS; 2020-08-19)
PROC: 5A1D70Z Performance of Urinary Filtration, Intermittent, Less than 6 Hours Per Day (ICD-10-PCS; 2020-08-20)
PROC: 5A1D70Z Performance of Urinary Filtration, Intermittent, Less than 6 Hours Per Day (ICD-10-PCS; 2020-08-21)
PROC: 5A1D70Z Performance of Urinary Filtration, Intermittent, Less than 6 Hours Per Day (ICD-10-PCS; 2020-08-22)
PROC: 5A1D70Z Performance of Urinary Filtration, Intermittent, Less than 6 Hours Per Day (ICD-10-PCS; 2020-08-23)
PROC: 5A1D70Z Performance of Urinary Filtration, Intermittent, Less than 6 Hours Per Day (ICD-10-PCS; 2020-08-24)
PROC: 5A1D70Z Performance of Urinary Filtration, Intermittent, Less than 6 Hours Per Day (ICD-10-PCS; 2020-08-25)
PROC: 5A1D70Z Performance of Urinary Filtration, Intermittent, Less than 6 Hours Per Day (ICD-10-PCS; 2020-08-26)
PROC: 3E043XZ Introduction of Vasopressor into Central Vein, Percutaneous Approach (ICD-10-PCS; 2020-08-27)
DX: A41.89 Other specified sepsis (principal); U07.1 COVID-19; J12.82 Pneumonia due to coronavirus disease 2019; J96.01 Acute respiratory failure with hypoxia; J15.9 Unspecified bacterial pneumonia; G93.5 Compression of brain; N17.0 Acute kidney failure with tubular necrosis; J93.9 Pneumothorax, unspecified; I47.1 Supraventricular tachycardia; N10 Acute pyelonephritis; I50.32 Chronic diastolic (congestive) heart failure; I82.B12 Acute embolism and thrombosis of left subclavian vein; E87.0 Hyperosmolality and hypernatremia; E87.3 Alkalosis; D62 Acute posthemorrhagic anemia; N17.9 Acute kidney failure, unspecified; E44.0 Moderate protein-calorie malnutrition; G93.49 Other encephalopathy; G72.81 Critical illness myopathy; R65.20 Severe sepsis without septic shock; E87.6 Hypokalemia; E03.9 Hypothyroidism, unspecified; Z82.49 Family history of ischemic heart disease and other diseases of the circulatory system; E88.09 Other disorders of plasma-protein metabolism, not elsewhere classified; D69.6 Thrombocytopenia, unspecified; I11.0 Hypertensive heart disease with heart failure; D64.9 Anemia, unspecified; R73.9 Hyperglycemia, unspecified; E87.70 Fluid overload, unspecified; N93.9 Abnormal uterine and vaginal bleeding, unspecified; K75.9 Inflammatory liver disease, unspecified; E83.39 Other disorders of phosphorus metabolism; E83.51 Hypocalcemia
CPT/HCPCS: 36415; 36569; 36600; 70450; 71045; 71250; 71260; 72125; 74176; 74177; 76700; 80048; 80053; 80076; 80202; 82533; 82570; 82607; 82746; 82805; 83540; 83735; 83880; 84100; 84132; 84300; 84439; 84443; 84466; 84484; 84702; 85007; 85025; 85027; 85045; 85610; 85730; 86704; 86706; 86850; 86900; 86920; 87040; 87340; 90962; 92950; 93005; 93306; 93970; 93971; 94002; 94003; 94660; 95812; 95822; 99251; 99285; J0171; J0330; J0360; J0456; J0610; J0690; J0692; J0696; J1100; J1250; J1450; J1644; J1650; J1756; J1940; J2001; J2020; J2060; J2185; J2250; J2370; J2405; J2543; J2765; J2930; J3370; J3480; J7030; J7040; J7050; J7060; J7070; J7121; P9016; P9017; P9047; Q9967; U0002